=== PATIENT | female | born 1950 | race Caucasian/White ===

== ENCOUNTER 2018-01-30 11:59 | Inpatient (IN) | payer OTHER ==
--- NOTE | 2018-01-30 12:03 | ED PDOC ---
Arrival/HPI - General Time Seen by Provider: 01/30/18 12:02 Historian: EMS - Critical Care Critical Care Minutes: 30 minutes - History of Present Illness Narrative History of Present Illness (Text): 01/30/18 12:05 A 67 year old female, whose past medical history includes asthma and osteoarthritis, brought in by EMS to the emergency department at 11:58 for AMS. Received report about incoming patient to the ER at 11:40. Per EMS, patient was found at the bottom of the steps in her building by the mailman. Unwitnessed fall, unknown downtime for patient (On daughters arrival approximately 2 pm she reports that she saw her mother before work normal. >4 hours since unknown well. Upon EMS arrival, patient was intubated with ketamine. EMS reports lungs sounded decreased in air, patient was given SOLU-Medrol, Duoneb, Magnesium, and epi. Patient still unresponsive and intubated. PMD: Dr. Doug Alcantara 01/30/18 16:41 Time/Duration: Other (unknown downtime) Past Medical History - Provider Review Nursing Documentation Reviewed: Yes - Pulmonary Hx Asthma: Yes - Musculoskeletal/Rheumatological Hx Osteoarthritis: Yes - Psychiatric Hx Psychophysiologic Disorder: No Hx Substance Use: No Family/Social History - Physician Review Nursing Documentation Reviewed: Yes Family/Social History: Unknown Family HX Smoking Status: Never Smoked Hx Alcohol Use: No Hx Substance Use: No Allergies/Home Meds Allergies/Adverse Reactions: Allergies No Known Allergies Allergy (Verified 01/30/18 18:34) Review of Systems - Review of Systems Systems not reviewed;Unavailable: Intubated Physical Exam Temperature: Hypothermic Blood Pressure: Normal Respiratory Rate: Mechanically Ventilated Pain Distress: None Mental Status: Positive for: Comatose - Systems Exam Head: Present: Atraumatic, Normocephalic Pupils: Present: Non-Reactive, Pinpoint Mouth: Present: Moist Mucous Membranes Pharnyx: Present: Other (ETT tube:24 at lip) Neck: No: Meningeal Signs Respiratory/Chest: Present: Wheezes, Decreased Breath Sounds Cardiovascular: Present: Regular Rate and Rhythm Abdomen: No: Distention, Peritoneal Signs Back: Present: Normal Inspection Upper Extremity: Present: Other (no movement) Lower Extremity: Present: Other (no movement) Neurological: Present: Other (GCS:3) Skin: Present: Warm, Dry. No: Rashes Medical Decision Making ED Course and Treatment: 01/30/18 12:10 Impression: 67 year old female AMS. Intubated on arrival. Plan: -- EKG -- Arterial Blood Gas -- Chest X-ray -- Head CT -- Labs -- Duonbebs -- IV Fluids -- Blood Culture -- Urine Culture -- Urinalysis -- Reassess and disposition Progress Notes: 01/30/18 12:06 Rectal temp - hypothermic. 01/30/18 12:16 Patient's sister is at bedside, who reports on past medical history of asthma. 01/30/18 12:28 ABG consistent with Primary Respiratory Acidosis, Chronic, with: Secondary Metabolic Acidosis and Additional Non-Gap Metabolic Acidosis. Ventilator settings changed accordingly 01/30/18 12:45 EKG: Ordered, reviewed, and independently interpreted the EKG. Rate : 120 BPM Rhythm : Sinus tachycardia. Interpretation : Non-specific ST changes. Comparison : No previous EKG for comparison. 01/30/18 13:05 Hospitalist and ICU accepts patient for admission, hospitalist requests Brain MRI to be performed. 01/30/18 13:12 ICU at bedside, requesting order of steroids and prophylactic antibiotics. 01/30/2018 12:54 Chest X-ray IMPRESSION: No active pulmonary disease. Endotracheal tube terminates in mid trachea. Dictator: Supriya Cavazos MD 01/30/18 12:[address] shows no intracranial hemorrhage. 01/30/18 14:37 Patient opens eyes, with some movement in lower extremities. 01/30/18 14:40 Patient seen at bedside, and had sudden seizure activity. Given Ativan, resulting in resolution of seizure. 01/30/18 14:42 Patient more responsive. patient to MRI as requested by hospitalist. CT c- soine changed to MRI c-spine as patient already at MRI and sedated and thought easier process 01/30/18 16:03 - Lab Interpretations I have reviewed the lab results: Yes - Scribe Statement The provider has reviewed the documentation as recorded by the Dafne Montes Provider Scribe Attestation: All medical record entries made by the Scribe were at my direction and personally dictated by me. I have reviewed the chart and agree that the record accurately reflects my personal performance of the history, physical exam, medical decision making, and the department course for this patient. I have also personally directed, reviewed, and agree with the discharge instructions and disposition. Disposition/Present on Arrival - Present on Arrival Any Indicators Present on Arrival: No History of DVT/PE: No History of Uncontrolled Diabetes: No Urinary Catheter: No History Surgical Site Infection Following: None - Disposition Have Diagnosis and Disposition been Completed?: Yes Diagnosis: Respiratory failure, Acidosis Disposition: HOSPITALIZED Disposition Time: 12:05 Patient Plan: Admission Patient Problems: Current Active Problems Problem Status Onset Respiratory failure Acute Acidosis Acute Condition: CRITICAL
[2018-01-30 12:04] VITALS: BMI 28.2
[2018-01-30] MEDS ORDERED: Albuterol-Ipratrop 3 mg / 0.5 (3 ml) UD IH STA ×2 (12:06→13:12)
[2018-01-30] MEDS ORDERED: Sodium Chloride 0.9% 1,000 ML IV STA ×2 (12:06→14:45)
[2018-01-30] MEDS ORDERED: Midazolam 100 mg/100ml in NS 100 MG/100 ML SOL IV PRN (12:12)
[2018-01-30] MEDS ORDERED: Fentanyl 1000mcg/100ml NS 1,000 MCG/100 ML BAG IV PRN (12:12)
[2018-01-30] MEDS ORDERED: Albuterol-Ipratrop 3 mg / 0.5 (3 ml) UD ONE (12:13)
[2018-01-30 12:16] LABS: ARTERIAL BLOOD GAS HCO3 15.9 mmol/L (21-28); ARTERIAL BLOOD GAS O2 SAT 100.3 % (95-98); ARTERIAL BLOOD GAS PCO2 63 mm/Hg (35-45); ARTERIAL BLOOD GAS TCO2 17.8 mmol.L (22-28)
[2018-01-30 12:31] LABS: ARTERIAL BLOOD GAS PH 7.01 (7.35-7.45)
[2018-01-30 12:34] LABS: BASO # 0.06 K/mm3 (0.0-2.0); BASO % 0.6 % (0.0-3.0); EOS # 0.1 (0.0-0.7); EOS % 1.3 % (1.5-5.0); GRAN # 3.95 (1.4-6.5); GRAN % 38.7 % (50.0-68.0); HEMOGLOBIN 12.2 g/dL (12.0-16.0); LYMPH # 5.8 (1.2-3.4); LYMPH % 56.5 % (22.0-35.0); MEAN CELL VOLUME 95.7 fl (80.0-105.0); MEAN CORPUSCULAR HEMOGLOBIN 29.4 pg (25.0-35.0); MEAN CORPUSCULAR HGB CONC 30.7 g/dl (31.0-37.0); MEAN PLATELET VOLUME 9.7 fl (7.0-11.0); MONO # 0.3 (0.1-0.6); MONO % 2.9 % (1.0-6.0); RBC 4.15 10^6/uL (3.5-6.1); RED CELL DISTRIBUTION WIDTH 13.1 % (11.5-14.5); WHITE BLOOD COUNT 10.2 10^3/uL (4.5-11.0)
[2018-01-30 12:40] LABS: INR 0.95; PARTIAL THROMBOPLASTIN TIME 30.5 Seconds (25.1-36.5); PROTHROMBIN TIME 10.9 SECONDS (9.4-12.5)
[2018-01-30 12:43] LABS: ACETAMINOPHEN < 10.0 ug/ml (10.0-20.0); SALICYLATE < 1 mg/dL (2.0-20.0)
[2018-01-30 12:53] LABS: B-TYPE NATRIURETIC PEPTIDE 89.9 pg/mL (0-450); TROPONIN I 0.06 ng/mL
--- NOTE | 2018-01-30 12:58 | RAD ---
Date of service: 01/30/2018 HISTORY: Code Stroke COMPARISON: No prior. FINDINGS: The endotracheal tube terminates in the mid trachea. LUNGS: The lungs are well inflated and clear. PLEURA: No pleural effusions or pneumothorax. CARDIOVASCULAR: The heart is normal in size. No aortic atherosclerotic calcification present. OSSEOUS STRUCTURES: Within normal limits for the patient's age. VISUALIZED UPPER ABDOMEN: Normal. OTHER FINDINGS: None. IMPRESSION: No active pulmonary disease. Endotracheal tube terminates in mid trachea.
[2018-01-30 13:02] LABS: ALB/GLOB RATIO 1.3 (1.1-1.8); ALBUMIN 4.2 g/dL (3.0-4.8); CALCIUM 8.6 mg/dL (8.4-10.5)
[2018-01-30] MEDS ORDERED: Sodium Chloride 0.9% 2,000 ML IV STA (13:09)
[2018-01-30] MEDS ORDERED: MethylPREDNISolone 40 mg Vial IVP STA (13:11)
[2018-01-30] MEDS ORDERED: Vancomycin 1gm in NS 250ml 1 GM/250 ML BAG IVPB STA (13:12)
[2018-01-30] MEDS ORDERED: Piperacillin/Tazobact 3.375 gm 100 ML IVPB STA (13:12)
[2018-01-30 13:17] LABS: PH,URINE 6.5 (4.7-8.0); URINE BILIRUBIN NEGATIVE (NEGATIVE); URINE BLOOD MODERATE (NEGATIVE); URINE GLUCOSE (UA) >=1000 mg/dL (NEGATIVE); URINE LEUKOCYTE ESTERASE NEGATIVE Leu/uL (NEGATIVE); URINE PROTEIN 30 mg/dL (<30 mg/dL); URINE UROBILINOGEN 0.2 E.U./dL (<1 E.U./dL)
[2018-01-30 13:21] LABS: URINE APPEARANCE CLEAR (CLEAR); URINE COLOR YELLOW (YELLOW)
[2018-01-30 13:22] LABS: URINE BACTERIA SMALL (NEG); URINE EPITHELIAL CELLS 0 - 2 /hpf (0-5); URINE WBC 0 - 2 /hpf (0-6)
[2018-01-30 13:23] LABS: URINE HYALINE CAST 0 - 2 /hpf
[2018-01-30] MEDS: Sodium Chloride 0.9% 1,000 ML IV SCH (13:43)
[2018-01-30 13:47] LABS: BARBITURATES, UR NEGATIVE (NEGATIVE); BENZODIAZEPINES, UR NEGATIVE (NEGATIVE); OPIATES, UR NEGATIVE (NEGATIVE); PHENCYCLIDINE, UR NEGATIVE (NEGATIVE)
--- NOTE | 2018-01-30 14:18 | CP.PCM.HP ---
<Marlon Miguel - Last Filed: 01/30/18 15:08> History of Present Illness - History of Present Illness History of Present Illness: Hospitalist H&P note: 67 F with PMHx of asthma, OA, and HLD presents brought in by EMS to the ED for AMS. History is mainly taken from the sister at bedside due to patient critical status. The patient was reportedly found in the pace by the mail man in the bottom of the stairs in her building. The patient was reportedly last seen normal by the daughter in the morning before the daughter went to work. The patient was intubated in the field, had dec air sounds and to protect her airway. She was given solumedrol, Duoneb, Magnesium, and epi on the field. Tyesha ent sister denies any recent hospitalization and states that she is normally very active on a daily basis. 12 Point ROS unable to be performed 2/2 intubation. Present on Admission - Present on Admission Any Indicators Present on Admission: No Review of Systems - Review of Systems All systems: reviewed and no additional remarkable complaints except Past Patient History - Past Social History Smoking Status: Never Smoked - CARDIAC Hx Cardiac Disorders: Yes Hx Hypercholesterolemia: Yes - PULMONARY Hx Asthma: Yes - NEUROLOGICAL Hx Neurological Disorder: No - HEENT Hx HEENT Problems: No - RENAL Hx Chronic Kidney Disease: No - ENDOCRINE/METABOLIC Hx Endocrine Disorders: No - HEMATOLOGICAL/ONCOLOGICAL Hx Blood Disorders: No - INTEGUMENTARY Hx Dermatological Problems: No - MUSCULOSKELETAL/RHEUMATOLOGICAL Hx Osteoarthritis: Yes - GASTROINTESTINAL Hx Gastrointestinal Disorders: No - GENITOURINARY/GYNECOLOGICAL Hx Genitourinary Disorders: No - PSYCHIATRIC Hx Psychophysiologic Disorder: No Hx Substance Use: No - SURGICAL HISTORY Hx Surgeries: No - ANESTHESIA Hx Anesthesia: No Meds Allergies/Adverse Reactions: Allergies Allergy/AdvReac Type Severity Reaction Status Date / Time No Known Allergies Allergy Verified 01/30/18 18:34 Physical Exam - Constitutional Appears: No Acute Distress - Head Exam Head Exam: ATRAUMATIC, NORMOCEPHALIC - Eye Exam Eye Exam: PERRL (Pupils reactive but slugish) Pupil Exam: NORMAL ACCOMODATION - ENT Exam ENT Exam: Mucous Membranes Moist - Respiratory Exam Respiratory Exam: absent: Rales, Wheezes - Cardiovascular Exam Cardiovascular Exam: Tachycardia, +S1, +S2 - GI/Abdominal Exam GI & Abdominal Exam: Normal Bowel Sounds, Soft. absent: Distended - Extremities Exam Extremities exam: Negative for: calf tenderness, pedal edema - Skin Skin Exam: Dry, Intact Results - Vital Signs Recent Vital Signs: Last Vital Signs Temp 95.6 F L 01/30/18 12:26 Pulse 125 H 01/30/18 12:26 Resp 18 01/30/18 12:26 BP 108/73 01/30/18 12:26 Pulse Ox 100 01/30/18 12:26 - Labs Result Diagrams: 01/30/18 12:10 01/30/18 12:10 Labs: Laboratory Results - last 24 hr 01/30/18 01/30/18 01/30/18 12:10 12:10 12:10 WBC 10.2 RBC 4.15 Hgb 12.2 Hct 39.7 MCV 95.7 MCH 29.4 MCHC 30.7 L RDW 13.1 Plt Count 357 MPV 9.7 Gran % 38.7 L Lymph % (Auto) 56.5 H [place] % (Auto) 2.9 Eos % (Auto) 1.3 L Baso % (Auto) 0.6 Gran # 3.95 Lymph # (Auto) 5.8 H [place] # (Auto) 0.3 Eos # (Auto) 0.1 Baso # (Auto) 0.06 PT 10.9 INR 0.95 APTT 30.5 pCO2 pO2 HCO3 ABG pH ABG Total CO2 ABG O2 Saturation ABG Base Excess ABG Potassium Sodium 138 Chloride 102 Glucose Lactate FiO2 Potassium 4.1 Carbon Dioxide 18 L Anion Gap 22 H BUN 17 Creatinine 1.1 Est GFR ( Amer) 60 Est GFR (Non-Af Amer) 50 Random Glucose 372 H* Calcium 8.6 Phosphorus 10.3 H Magnesium 4.2 H Total Bilirubin 0.3 AST 33 ALT 21 Alkaline Phosphatase 63 Total Creatine Kinase 80 Troponin I 0.06 NT-Pro-B Natriuret Pep 89.9 Total Protein 7.4 Albumin 4.2 Globulin 3.2 Albumin/Globulin Ratio 1.3 Triglycerides 122 Cholesterol 248 H LDL Cholesterol Direct 132 H HDL Cholesterol 66 H Arterial Blood Potassium Urine Color Urine Appearance Urine pH Ur Specific [place] Urine Protein Urine Glucose (UA) Urine Ketones Urine Blood Urine Nitrate Urine Bilirubin Urine Urobilinogen Ur Leukocyte Esterase Urine RBC Urine WBC Ur Epithelial Cells Urine Bacteria Hyaline Casts Salicylates Urine Opiates Screen Urine Methadone Screen Acetaminophen Ur Barbiturates Screen Ur Phencyclidine Scrn Ur Amphetamines Screen U Benzodiazepines Scrn U Oth Cocaine Metabols U Cannabinoids Screen Alcohol, Quantitative Blood Type Antibody Screen BBK History Checked 01/30/18 01/30/18 01/30/18 12:10 12:10 12:10 WBC RBC Hgb Hct MCV MCH MCHC RDW Plt Count MPV Gran % Lymph % (Auto) [place] % (Auto) Eos % (Auto) Baso % (Auto) Gran # Lymph # (Auto) [place] # (Auto) Eos # (Auto) Baso # (Auto) PT INR APTT pCO2 63 H pO2 551.0 H HCO3 15.9 L ABG pH 7.01 L* ABG Total CO2 17.8 L ABG O2 Saturation 100.3 H ABG Base Excess -15.8 L ABG Potassium 3.4 L Sodium 135.0 Chloride 103.0 Glucose 375 H Lactate 7.9 H* FiO2 100.0 Potassium Carbon Dioxide Anion Gap BUN Creatinine Est GFR ( Amer) Est GFR (Non-Af Amer) Random Glucose Calcium Phosphorus Magnesium Total Bilirubin AST ALT Alkaline Phosphatase Total Creatine Kinase Troponin I NT-Pro-B Natriuret Pep Total Protein Albumin Globulin Albumin/Globulin Ratio Triglycerides Cholesterol LDL Cholesterol Direct HDL Cholesterol Arterial Blood Potassium 3.4 L Urine Color Urine Appearance Urine pH Ur Specific [place] Urine Protein Urine Glucose (UA) Urine Ketones Urine Blood Urine Nitrate Urine Bilirubin Urine Urobilinogen Ur Leukocyte Esterase Urine RBC Urine WBC Ur Epithelial Cells Urine Bacteria Hyaline Casts Salicylates < 1 L Urine Opiates Screen Urine Methadone Screen Acetaminophen < 10.0 L Ur Barbiturates Screen Ur Phencyclidine Scrn Ur Amphetamines Screen U Benzodiazepines Scrn U Oth Cocaine Metabols U Cannabinoids Screen Alcohol, Quantitative < 10 Blood Type Antibody Screen BBK History Checked 01/30/18 01/30/18 01/30/18 12:40 13:00 13:00 WBC RBC Hgb Hct MCV MCH MCHC RDW Plt Count MPV Gran % Lymph % (Auto) [place] % (Auto) Eos % (Auto) Baso % (Auto) Gran # Lymph # (Auto) [place] # (Auto) Eos # (Auto) Baso # (Auto) PT INR APTT pCO2 pO2 HCO3 ABG pH ABG Total CO2 ABG O2 Saturation ABG Base Excess ABG Potassium Sodium Chloride Glucose Lactate FiO2 Potassium Carbon Dioxide Anion Gap BUN Creatinine Est GFR ( Amer) Est GFR (Non-Af Amer) Random Glucose Calcium Phosphorus Magnesium Total Bilirubin AST ALT Alkaline Phosphatase Total Creatine Kinase Troponin I NT-Pro-B Natriuret Pep Total Protein Albumin Globulin Albumin/Globulin Ratio Triglycerides Cholesterol LDL Cholesterol Direct HDL Cholesterol Arterial Blood Potassium Urine Color Yellow Urine Appearance Clear Urine pH 6.5 Ur Specific [place] 1.025 Urine Protein 30 H Urine Glucose (UA) >=1000 Urine Ketones Negative Urine Blood Moderate H Urine Nitrate Negative Urine Bilirubin Negative Urine Urobilinogen 0.2 Ur Leukocyte Esterase Negative Urine RBC 5 - 10 Urine WBC 0 - 2 Ur Epithelial Cells 0 - 2 Urine Bacteria Small Hyaline Casts 0 - 2 Salicylates Urine Opiates Screen Negative Urine Methadone Screen Negative Acetaminophen Ur Barbiturates Screen Negative Ur Phencyclidine Scrn Negative Ur Amphetamines Screen Negative U Benzodiazepines Scrn Negative U Oth Cocaine Metabols Negative U Cannabinoids Screen Negative Alcohol, Quantitative Blood Type B POSITIVE Antibody Screen Negative BBK History Checked No verified bt Assessment & Plan - Assessment and Plan (Free Text) Assessment: 67 F with PMHx of asthma, OA, and HLD presents brought in by EMS to the ED for AMS. Patient with respiratory failure - intubated - found to have elevated lactate and acidotic. AMS: - Intubated and admitted to the ICU - Elevated lactate 7.9 and acidotic to 7 - CT head done pending official read - MRI of the head ordered - Currently on Fentanyl and Versed - NS bolus x 2 given in the ED, another ordered - Broad spectrum abx with Vanc & Zosyn started - F/u Neuro consult recs - F/u ID consult recs - CXR showed no active dx - Cont Solumedrol 40 Q8 - Duonebs as needed - Septic work up sent - Daily labs Case and plan was reviewed and discussed with Dr Schwab <Josafat Schwab - Last Filed: 01/30/18 19:50> Results - Vital Signs Recent Vital Signs: Last Vital Signs Temp 99.3 F 01/30/18 17:40 Pulse 90 01/30/18 17:48 Resp 20 01/30/18 17:40 BP 117/79 01/30/18 17:10 Pulse Ox 100 01/30/18 17:40 - Labs Result Diagrams: 01/30/18 12:10 01/30/18 12:10 Labs: Laboratory Results - last 24 hr 01/30/18 01/30/18 01/30/18 12:10 12:10 12:10 WBC 10.2 RBC 4.15 Hgb 12.2 Hct 39.7 MCV 95.7 MCH 29.4 MCHC 30.7 L RDW 13.1 Plt Count 357 MPV 9.7 Gran % 38.7 L Lymph % (Auto) 56.5 H [place] % (Auto) 2.9 Eos % (Auto) 1.3 L Baso % (Auto) 0.6 Gran # 3.95 Lymph # (Auto) 5.8 H [place] # (Auto) 0.3 Eos # (Auto) 0.1 Baso # (Auto) 0.06 PT 10.9 INR 0.95 APTT 30.5 pCO2 pO2 HCO3 ABG pH ABG Total CO2 ABG O2 Saturation ABG Base Excess ABG Potassium VBG pH VBG pCO2 VBG HCO3 VBG Total CO2 VBG O2 Sat (Calc) VBG Base Excess VBG Potassium Sodium 138 Chloride 102 Glucose Lactate FiO2 Potassium 4.1 Carbon Dioxide 18 L Anion Gap 22 H BUN 17 Creatinine 1.1 Est GFR ( Amer) 60 Est GFR (Non-Af Amer) 50 Random Glucose 372 H* Hemoglobin A1c Calcium 8.6 Phosphorus 10.3 H Magnesium 4.2 H Total Bilirubin 0.3 AST 33 ALT 21 Alkaline Phosphatase 63 Total Creatine Kinase 80 Troponin I 0.06 NT-Pro-B Natriuret Pep 89.9 Total Protein 7.4 Albumin 4.2 Globulin 3.2 Albumin/Globulin Ratio 1.3 Triglycerides 122 Cholesterol 248 H LDL Cholesterol Direct 132 H HDL Cholesterol 66 H TSH 3rd Generation Arterial Blood Potassium Venous Blood Potassium Urine Color Urine Appearance Urine pH Ur Specific [place] Urine Protein Urine Glucose (UA) Urine Ketones Urine Blood Urine Nitrate Urine Bilirubin Urine Urobilinogen Ur Leukocyte Esterase Urine RBC Urine WBC Ur Epithelial Cells Urine Bacteria Hyaline Casts Salicylates Urine Opiates Screen Urine Methadone Screen Acetaminophen Ur Barbiturates Screen Ur Phencyclidine Scrn Ur Amphetamines Screen U Benzodiazepines Scrn U Oth Cocaine Metabols U Cannabinoids Screen Alcohol, Quantitative Blood Type Blood Type Confirm Antibody Screen BBK History Checked 01/30/18 01/30/18 01/30/18 12:10 12:10 12:10 WBC RBC Hgb Hct MCV MCH MCHC RDW Plt Count MPV Gran % Lymph % (Auto) [place] % (Auto) Eos % (Auto) Baso % (Auto) Gran # Lymph # (Auto) [place] # (Auto) Eos # (Auto) Baso # (Auto) PT INR APTT pCO2 63 H pO2 551.0 H HCO3 15.9 L ABG pH 7.01 L* ABG Total CO2 17.8 L ABG O2 Saturation 100.3 H ABG Base Excess -15.8 L ABG Potassium 3.4 L VBG pH VBG pCO2 VBG HCO3 VBG Total CO2 VBG O2 Sat (Calc) VBG Base Excess VBG Potassium Sodium 135.0 Chloride 103.0 Glucose 375 H Lactate 7.9 H* FiO2 100.0 Potassium Carbon Dioxide Anion Gap BUN Creatinine Est GFR ( Amer) Est GFR (Non-Af Amer) Random Glucose Hemoglobin A1c 5.8 Calcium Phosphorus Magnesium Total Bilirubin AST ALT Alkaline Phosphatase Total Creatine Kinase Troponin I NT-Pro-B Natriuret Pep Total Protein Albumin Globulin Albumin/Globulin Ratio Triglycerides Cholesterol LDL Cholesterol Direct HDL Cholesterol TSH 3rd Generation Arterial Blood Potassium 3.4 L Venous Blood Potassium Urine Color Urine Appearance Urine pH Ur Specific [place] Urine Protein Urine Glucose (UA) Urine Ketones Urine Blood Urine Nitrate Urine Bilirubin Urine Urobilinogen Ur Leukocyte Esterase Urine RBC Urine WBC Ur Epithelial Cells Urine Bacteria Hyaline Casts Salicylates < 1 L Urine Opiates Screen Urine Methadone Screen Acetaminophen < 10.0 L Ur Barbiturates Screen Ur Phencyclidine Scrn Ur Amphetamines Screen U Benzodiazepines Scrn U Oth Cocaine Metabols U Cannabinoids Screen Alcohol, Quantitative Blood Type Blood Type Confirm Antibody Screen BBK History Checked 01/30/18 01/30/18 01/30/18 12:10 12:10 12:40 WBC RBC Hgb Hct MCV MCH MCHC RDW Plt Count MPV Gran % Lymph % (Auto) [place] % (Auto) Eos % (Auto) Baso % (Auto) Gran # Lymph # (Auto) [place] # (Auto) Eos # (Auto) Baso # (Auto) PT INR APTT pCO2 pO2 HCO3 ABG pH ABG Total CO2 ABG O2 Saturation ABG Base Excess ABG Potassium VBG pH VBG pCO2 VBG HCO3 VBG Total CO2 VBG O2 Sat (Calc) VBG Base Excess VBG Potassium Sodium Chloride Glucose Lactate FiO2 Potassium Carbon Dioxide Anion Gap BUN Creatinine Est GFR ( Amer) Est GFR (Non-Af Amer) Random Glucose Hemoglobin A1c Calcium Phosphorus Magnesium Total Bilirubin AST ALT Alkaline Phosphatase Total Creatine Kinase Troponin I NT-Pro-B Natriuret Pep Total Protein Albumin Globulin Albumin/Globulin Ratio Triglycerides Cholesterol LDL Cholesterol Direct HDL Cholesterol TSH 3rd Generation Arterial Blood Potassium Venous Blood Potassium Urine Color Urine Appearance Urine pH Ur Specific [place] Urine Protein Urine Glucose (UA) Urine Ketones Urine Blood Urine Nitrate Urine Bilirubin Urine Urobilinogen Ur Leukocyte Esterase Urine RBC Urine WBC Ur Epithelial Cells Urine Bacteria Hyaline Casts Salicylates Urine Opiates Screen Urine Methadone Screen Acetaminophen Ur Barbiturates Screen Ur Phencyclidine Scrn Ur Amphetamines Screen U Benzodiazepines Scrn U Oth Cocaine Metabols U Cannabinoids Screen Alcohol, Quantitative < 10 Blood Type B POSITIVE Blood Type Confirm B POSITIVE Antibody Screen Negative BBK History Checked No verified bt 01/30/18 01/30/18 01/30/18 13:00 13:00 15:30 WBC RBC Hgb Hct MCV MCH MCHC RDW Plt Count MPV Gran % Lymph % (Auto) [place] % (Auto) Eos % (Auto) Baso % (Auto) Gran # Lymph # (Auto) [place] # (Auto) Eos # (Auto) Baso # (Auto) PT INR APTT pCO2 pO2 HCO3 ABG pH ABG Total CO2 ABG O2 Saturation ABG Base Excess ABG Potassium VBG pH VBG pCO2 VBG HCO3 VBG Total CO2 VBG O2 Sat (Calc) VBG Base Excess VBG Potassium Sodium Chloride Glucose Lactate FiO2 Potassium Carbon Dioxide Anion Gap BUN Creatinine Est GFR ( Amer) Est GFR (Non-Af Amer) Random Glucose Hemoglobin A1c Calcium Phosphorus Magnesium Total Bilirubin AST ALT Alkaline Phosphatase Total Creatine Kinase Troponin I NT-Pro-B Natriuret Pep Total Protein Albumin Globulin Albumin/Globulin Ratio Triglycerides Cholesterol LDL Cholesterol Direct HDL Cholesterol TSH 3rd Generation 3.34 Arterial Blood Potassium Venous Blood Potassium Urine Color Yellow Urine Appearance Clear Urine pH 6.5 Ur Specific [place] 1.025 Urine Protein 30 H Urine Glucose (UA) >=1000 Urine Ketones Negative Urine Blood Moderate H Urine Nitrate Negative Urine Bilirubin Negative Urine Urobilinogen 0.2 Ur Leukocyte Esterase Negative Urine RBC 5 - 10 Urine WBC 0 - 2 Ur Epithelial Cells 0 - 2 Urine Bacteria Small Hyaline Casts 0 - 2 Salicylates Urine Opiates Screen Negative Urine Methadone Screen Negative Acetaminophen Ur Barbiturates Screen Negative Ur Phencyclidine Scrn Negative Ur Amphetamines Screen Negative U Benzodiazepines Scrn Negative U Oth Cocaine Metabols Negative U Cannabinoids Screen Negative Alcohol, Quantitative Blood Type Blood Type Confirm Antibody Screen BBK History Checked 01/30/18 01/30/18 15:30 15:36 WBC RBC Hgb Hct MCV MCH MCHC RDW Plt Count MPV Gran % Lymph % (Auto) [place] % (Auto) Eos % (Auto) Baso % (Auto) Gran # Lymph # (Auto) [place] # (Auto) Eos # (Auto) Baso # (Auto) PT INR APTT pCO2 pO2 98 H HCO3 ABG pH ABG Total CO2 ABG O2 Saturation ABG Base Excess ABG Potassium VBG pH 7.31 L VBG pCO2 42.0 VBG HCO3 21.1 VBG Total CO2 22.4 VBG O2 Sat (Calc) 99.0 H VBG Base Excess -5.0 L VBG Potassium 3.8 Sodium 139.0 Chloride 105.0 Glucose 238 H Lactate 3.0 H FiO2 21.0 Potassium Carbon Dioxide Anion Gap BUN Creatinine Est GFR ( Amer) Est GFR (Non-Af Amer) Random Glucose Hemoglobin A1c Calcium Phosphorus Magnesium Total Bilirubin AST ALT Alkaline Phosphatase Total Creatine Kinase Troponin I NT-Pro-B Natriuret Pep Total Protein Albumin Globulin Albumin/Globulin Ratio Triglycerides Cholesterol LDL Cholesterol Direct HDL Cholesterol TSH 3rd Generation Arterial Blood Potassium Venous Blood Potassium 3.8 Urine Color Urine Appearance Urine pH Ur Specific [place] Urine Protein Urine Glucose (UA) Urine Ketones Urine Blood Urine Nitrate Urine Bilirubin Urine Urobilinogen Ur Leukocyte Esterase Urine RBC Urine WBC Ur Epithelial Cells Urine Bacteria Hyaline Casts Salicylates Urine Opiates Screen Negative Urine Methadone Screen Negative Acetaminophen Ur Barbiturates Screen Negative Ur Phencyclidine Scrn Negative Ur Amphetamines Screen Negative U Benzodiazepines Scrn Negative U Oth Cocaine Metabols Negative U Cannabinoids Screen Negative Alcohol, Quantitative Blood Type Blood Type Confirm Antibody Screen BBK History Checked Attending/Attestation - Attestation I have personally seen and examined this patient.: Yes I have fully participated in the care of the patient.: Yes I have reviewed all pertinent clinical information: Yes Notes (Text): Acute Hypercapnic respiratory failure requiring invasive mechanical ventilation Unresponsiveness Lactic acidosis Asthma ABG consistent with acute respiratory acidosis Vent management per fiber optics technician Elevated LA could secondary to albuterol use, s/p IVF bolus trend LA Duo Neb PRN It is unclear at this point the etiology of her respiratory failure and unrepsonsiveness CT is negative Will consult neurology and get MRI brain GCS off sedation is 3T No gag reflex, pupils are sluggish Prognosis is poor at the moment Discussed with family at bedside and answered all their questions to their satisfaction
--- NOTE | 2018-01-30 14:39 | CP.PCM.CON ---
History of Present Illness - History of Present Illness History of Present Illness: MICU CONSULT NOTE HPI Patient is 67yo female with PMHx of Asthma, OA, HLD, presented to the ER after being found down by the mailman outside her house. As per ER staff, patient was found down, subsequently intubated in the field by EMS. The patient was last seen normal earlier in the morning by the daughter. Pt currently intubated, not sedated, GCS 3. Labs, imaging, chart reviewed. PMhx as above Pshx as above Meds unknown ROS cannot obtain Social (-) smoking, etoh, drug use FHx NC Review of Systems - Review of Systems Review of Systems: as per HPI Past Patient History - Past Social History Smoking Status: Never Smoked - CARDIAC Hx Cardiac Disorders: Yes Hx Hypercholesterolemia: Yes - PULMONARY Hx Asthma: Yes - NEUROLOGICAL Hx Neurological Disorder: No - HEENT Hx HEENT Problems: No - RENAL Hx Chronic Kidney Disease: No - ENDOCRINE/METABOLIC Hx Endocrine Disorders: No - HEMATOLOGICAL/ONCOLOGICAL Hx Blood Disorders: No - INTEGUMENTARY Hx Dermatological Problems: No - MUSCULOSKELETAL/RHEUMATOLOGICAL Hx Osteoarthritis: Yes - GASTROINTESTINAL Hx Gastrointestinal Disorders: No - GENITOURINARY/GYNECOLOGICAL Hx Genitourinary Disorders: No - PSYCHIATRIC Hx Psychophysiologic Disorder: No Hx Substance Use: No - SURGICAL HISTORY Hx Surgeries: No - ANESTHESIA Hx Anesthesia: No Meds Allergies/Adverse Reactions: Allergies Allergy/AdvReac Type Severity Reaction Status Date / Time No Known Allergies Allergy Verified 01/30/18 12:03 - Medications Medications: Current Medications Sodium Chloride (Sodium Chloride 0.9%) 1,000 mls @ 100 mls/hr IV .Q10H [facility] Last Admin: 01/30/18 13:43 Dose: 100 mls/hr Fentanyl Citrate (Fentanyl Citrate/Sodium Chloride 1 Mg/100 Ml) 1,000 mcg in 100 mls @ 2 mls/hr IV .Q24H PRN; Protocol PRN Reason: TITRATE PER MD ORDER Midazolam 100 mg/100ml in NS (Midazolam 100 Mg/100ml In Ns) 100 mg in 100 mls @ 1 mls/hr IV .Q24H PRN; Protocol PRN Reason: Agitation Sodium Chloride (Sodium Chloride 0.9%) 2,000 mls @ 999 mls/hr IV .Q2H1M STA Stop: 01/30/18 15:09 Last Admin: 01/30/18 13:15 Dose: 999 mls/hr Vancomycin HCl (Vancomycin 1gm) 1 gm in 250 mls @ 167 mls/hr IVPB STAT STA; Protocol Stop: 01/30/18 14:41 Last Admin: 01/30/18 14:21 Dose: 167 mls/hr Physical Exam - Constitutional Appears: Non-toxic, No Acute Distress - Head Exam Head Exam: NORMAL INSPECTION - Eye Exam Eye Exam: Normal appearance - ENT Exam ENT Exam: Mucous Membranes Dry - Respiratory Exam Respiratory Exam: Decreased Breath Sounds, Prolonged Expiratory Phase, NORMAL BR EATHING PATTERN - Cardiovascular Exam Cardiovascular Exam: REGULAR RHYTHM, +S1, +S2 - GI/Abdominal Exam GI & Abdominal Exam: Normal Bowel Sounds, Soft - Extremities Exam Extremities exam: Positive for: normal inspection - Neurological Exam Neurological exam: Altered - Skin Skin Exam: Normal Color, Warm Results - Vital Signs Recent Vital Signs: Last Vital Signs Temp 95.6 F L 01/30/18 12:26 Pulse 125 H 01/30/18 12:26 Resp 18 01/30/18 12:26 BP 108/73 01/30/18 12:26 Pulse Ox 100 01/30/18 12:26 - Labs Result Diagrams: 01/30/18 12:10 01/30/18 12:10 Labs: Laboratory Results - last 24 hr 01/30/18 01/30/18 01/30/18 12:10 12:10 12:10 WBC 10.2 RBC 4.15 Hgb 12.2 Hct 39.7 MCV 95.7 MCH 29.4 MCHC 30.7 L RDW 13.1 Plt Count 357 MPV 9.7 Gran % 38.7 L Lymph % (Auto) 56.5 H [place] % (Auto) 2.9 Eos % (Auto) 1.3 L Baso % (Auto) 0.6 Gran # 3.95 Lymph # (Auto) 5.8 H [place] # (Auto) 0.3 Eos # (Auto) 0.1 Baso # (Auto) 0.06 PT 10.9 INR 0.95 APTT 30.5 pCO2 pO2 HCO3 ABG pH ABG Total CO2 ABG O2 Saturation ABG Base Excess ABG Potassium Sodium 138 Chloride 102 Glucose Lactate FiO2 Potassium 4.1 Carbon Dioxide 18 L Anion Gap 22 H BUN 17 Creatinine 1.1 Est GFR ( Amer) 60 Est GFR (Non-Af Amer) 50 Random Glucose 372 H* Calcium 8.6 Phosphorus 10.3 H Magnesium 4.2 H Total Bilirubin 0.3 AST 33 ALT 21 Alkaline Phosphatase 63 Total Creatine Kinase 80 Troponin I 0.06 NT-Pro-B Natriuret Pep 89.9 Total Protein 7.4 Albumin 4.2 Globulin 3.2 Albumin/Globulin Ratio 1.3 Triglycerides 122 Cholesterol 248 H LDL Cholesterol Direct 132 H HDL Cholesterol 66 H Arterial Blood Potassium Urine Color Urine Appearance Urine pH Ur Specific [place] Urine Protein Urine Glucose (UA) Urine Ketones Urine Blood Urine Nitrate Urine Bilirubin Urine Urobilinogen Ur Leukocyte Esterase Urine RBC Urine WBC Ur Epithelial Cells Urine Bacteria Hyaline Casts Salicylates Urine Opiates Screen Urine Methadone Screen Acetaminophen Ur Barbiturates Screen Ur Phencyclidine Scrn Ur Amphetamines Screen U Benzodiazepines Scrn U Oth Cocaine Metabols U Cannabinoids Screen Alcohol, Quantitative Blood Type Antibody Screen BBK History Checked 01/30/18 01/30/18 01/30/18 12:10 12:10 12:10 WBC RBC Hgb Hct MCV MCH MCHC RDW Plt Count MPV Gran % Lymph % (Auto) [place] % (Auto) Eos % (Auto) Baso % (Auto) Gran # Lymph # (Auto) [place] # (Auto) Eos # (Auto) Baso # (Auto) PT INR APTT pCO2 63 H pO2 551.0 H HCO3 15.9 L ABG pH 7.01 L* ABG Total CO2 17.8 L ABG O2 Saturation 100.3 H ABG Base Excess -15.8 L ABG Potassium 3.4 L Sodium 135.0 Chloride 103.0 Glucose 375 H Lactate 7.9 H* FiO2 100.0 Potassium Carbon Dioxide Anion Gap BUN Creatinine Est GFR ( Amer) Est GFR (Non-Af Amer) Random Glucose Calcium Phosphorus Magnesium Total Bilirubin AST ALT Alkaline Phosphatase Total Creatine Kinase Troponin I NT-Pro-B Natriuret Pep Total Protein Albumin Globulin Albumin/Globulin Ratio Triglycerides Cholesterol LDL Cholesterol Direct HDL Cholesterol Arterial Blood Potassium 3.4 L Urine Color Urine Appearance Urine pH Ur Specific [place] Urine Protein Urine Glucose (UA) Urine Ketones Urine Blood Urine Nitrate Urine Bilirubin Urine Urobilinogen Ur Leukocyte Esterase Urine RBC Urine WBC Ur Epithelial Cells Urine Bacteria Hyaline Casts Salicylates < 1 L Urine Opiates Screen Urine Methadone Screen Acetaminophen < 10.0 L Ur Barbiturates Screen Ur Phencyclidine Scrn Ur Amphetamines Screen U Benzodiazepines Scrn U Oth Cocaine Metabols U Cannabinoids Screen Alcohol, Quantitative < 10 Blood Type Antibody Screen BBK History Checked 01/30/18 01/30/18 01/30/18 12:40 13:00 13:00 WBC RBC Hgb Hct MCV MCH MCHC RDW Plt Count MPV Gran % Lymph % (Auto) [place] % (Auto) Eos % (Auto) Baso % (Auto) Gran # Lymph # (Auto) [place] # (Auto) Eos # (Auto) Baso # (Auto) PT INR APTT pCO2 pO2 HCO3 ABG pH ABG Total CO2 ABG O2 Saturation ABG Base Excess ABG Potassium Sodium Chloride Glucose Lactate FiO2 Potassium Carbon Dioxide Anion Gap BUN Creatinine Est GFR ( Amer) Est GFR (Non-Af Amer) Random Glucose Calcium Phosphorus Magnesium Total Bilirubin AST ALT Alkaline Phosphatase Total Creatine Kinase Troponin I NT-Pro-B Natriuret Pep Total Protein Albumin Globulin Albumin/Globulin Ratio Triglycerides Cholesterol LDL Cholesterol Direct HDL Cholesterol Arterial Blood Potassium Urine Color Yellow Urine Appearance Clear Urine pH 6.5 Ur Specific [place] 1.025 Urine Protein 30 H Urine Glucose (UA) >=1000 Urine Ketones Negative Urine Blood Moderate H Urine Nitrate Negative Urine Bilirubin Negative Urine Urobilinogen 0.2 Ur Leukocyte Esterase Negative Urine RBC 5 - 10 Urine WBC 0 - 2 Ur Epithelial Cells 0 - 2 Urine Bacteria Small Hyaline Casts 0 - 2 Salicylates Urine Opiates Screen Negative Urine Methadone Screen Negative Acetaminophen Ur Barbiturates Screen Negative Ur Phencyclidine Scrn Negative Ur Amphetamines Screen Negative U Benzodiazepines Scrn Negative U Oth Cocaine Metabols Negative U Cannabinoids Screen Negative Alcohol, Quantitative Blood Type B POSITIVE Antibody Screen Negative BBK History Checked No verified bt - Imaging and Cardiology Chest x-ray Status: Image reviewed by me, Report reviewed by me Assessment & Plan - Assessment and Plan (Free Text) Assessment: 67yo female a/w respiratory failure, AMS, lactic acidosis, metabolic Acidosis AMS Resp failure Lactic Acidosis Metabolic Acidosis Asthma exacerbation - currently hypothermic, on bear hugger, T 95, altered, GCS 3, CT head negative as per ER - labs, imaging, chart reviewed Recommend: - cont with vent support, low tidal vol ventilation, titrate FiO2 down, repeat ABg with lactate - Solumedrol 40mg IV TID - Duonebs q4hr - broad spectrum abx, Vanco, ZOsyn - panculture, UCx, BCx, Procal, ID eval - MRI brain - VEEG - neuro eval - FS control - IVF, would bolus 4L total, and start on NS 125cc/hr - repeat CMP - GI ppx - DVT ppx - Admit to MICU Critical care condition Critical care time 35 minutes
[2018-01-30] MEDS ORDERED: levETIRAcetam 1000mg/100ml NS 100 ML IV ONE (15:04)
[2018-01-30 15:40] LABS: VENOUS BLOOD GAS PO2 98 mm/Hg (30-55); VENOUS BLOOD PH 7.31 (7.32-7.43)
[2018-01-30 16:29] LABS: BARBITURATES, UR NEGATIVE (NEGATIVE); BENZODIAZEPINES, UR NEGATIVE (NEGATIVE); OPIATES, UR NEGATIVE (NEGATIVE); PHENCYCLIDINE, UR NEGATIVE (NEGATIVE)
--- NOTE | 2018-01-30 17:32 | CT ---
Date of service: 01/30/2018 PROCEDURE: CT Cervical Spine without contrast HISTORY: trauma COMPARISON: None available. TECHNIQUE: Axial computed tomography images were obtained of the cervical spine without the use of intravenous contrast. Coronal and sagittal reformatted images were created and reviewed. Radiation dose: Total exam DLP = 544.09 mGy-cm. This CT exam was performed using one or more of the following dose reduction techniques: Automated exposure control, adjustment of the mA and/or kV according to patient size, and/or use of iterative reconstruction technique. FINDINGS: VERTEBRAE: No fracture. Normal alignment. No destructive bony lesion. DISCS/SPINAL CANAL/NEURAL FORAMINA: No significant central canal or neural foraminal stenosis. Discs heights are grossly preserved. PARASPINAL SOFT TISSUES: Status post intubation. Cannot evaluate prevertebral soft tissue. OTHER FINDINGS: None. IMPRESSION: No CT evidence of acute displaced fracture or subluxation.
--- NOTE | 2018-01-30 20:28 | CARD ---
APPROVED REPORT Date of service: 01/30/2018 EKG Measurement Heart [id number] <Conclusion> Sinus tachycardia Nonspecific ST and T wave abnormality Abnormal ECG
[2018-01-30] MEDS ORDERED: Vancomycin 1gm in NS 250ml 1 GM/250 ML BAG IVPB SCH (21:00)
[2018-01-30] MEDS ORDERED: Influenza Vaccine 60 mcg/0.5 mL SYR (4YR UP) IM ONE (22:14)
[2018-01-30] MEDS ORDERED: Pneumococcal 23-Valent Vaccine IM ONE (22:14)
[2018-01-30] MEDS: Piperacillin/Tazobact 3.375 gm 100 ML IVPB SCH (22:50)
[2018-01-31] MEDS: Piperacillin/Tazobact 3.375 gm 100 ML IVPB SCH ×3 (05:27→23:00)
[2018-01-31] MEDS: Heparin25000 units/250ml 1/2NS 25,000 UNITS/250 ML BAG IV SCH (05:28)
[2018-01-31 06:54] LABS: GRAN # 11.64 (1.4-6.5); GRAN % 84.3 % (50.0-68.0); HEMOGLOBIN 11.6 g/dL (12.0-16.0); LYMPH # 1.3 (1.2-3.4); LYMPH % 9.4 % (22.0-35.0); MEAN CELL VOLUME 90.8 fl (80.0-105.0); MEAN PLATELET VOLUME 9.8 fl (7.0-11.0); MONO # 0.9 (0.1-0.6); MONO % 6.3 % (1.0-6.0); RED CELL DISTRIBUTION WIDTH 13.3 % (11.5-14.5); WHITE BLOOD COUNT 13.8 10^3/uL (4.5-11.0)
[2018-01-31 07:04] LABS: ALB/GLOB RATIO 1.2 (1.1-1.8); ALBUMIN 3.8 g/dL (3.0-4.8); ALT/SGPT 26 U/L (7-56); AST/SGOT 44 U/L (14-36); BLOOD UREA NITROGEN 15 mg/dL (7-21); GFR NON-AFRICAN AMERICAN > 60
[2018-01-31] MEDS: Albuterol-Ipratrop 3 mg / 0.5 (3 ml) UD IH PRN ×2 (07:04→13:16)
[2018-01-31 07:13] LABS: INR 1.03; PARTIAL THROMBOPLASTIN TIME 25.4 Seconds (25.1-36.5); PROTHROMBIN TIME 11.9 SECONDS (9.4-12.5)
--- NOTE | 2018-01-31 07:41 | CP.CCUPN ---
<Joie Fontana L - Last Filed: 01/31/18 14:02> CCU Subjective - Physician Review Subjective (Free Text): Resident Progress Note for CCU Patient examined at bedside. No acute events overnight. Patient is s/p extubation and resting comfortably in no acute distress with cervical collar removed. Offers no complaints at this time. Patent denies fever, chills, neck pain, chest pain, shortness of breath, abdominal pain, diarrhea. Critical Care Time Spent (in minutes): 35 CCU Objective - Vital Signs / Intake & Output Vital Signs (Last 4 hours): Vital Signs Temp Pulse Resp BP Pulse Ox 01/31/18 07:12 20 100 01/31/18 07:10 98.6 F 72 100 01/31/18 07:00 98.4 F 72 104/74 100 01/31/18 06:50 98.6 F 74 100 01/31/18 06:40 98.6 F 73 100 01/31/18 06:30 98.6 F 74 100 01/31/18 06:20 98.6 F 72 100 01/31/18 06:10 98.6 F 74 100 01/31/18 06:00 98.4 F 73 106/65 100 01/31/18 05:50 97.0 F L 92 H 100 01/31/18 05:40 93.6 F L 100 01/31/18 05:30 99.0 F 73 100 01/31/18 05:20 99.0 F 73 100 01/31/18 05:10 98.8 F 73 100 01/31/18 05:00 98.8 F 69 109/75 100 01/31/18 04:50 98.6 F 77 100 01/31/18 04:40 98.6 F 91 H 100 01/31/18 04:30 98.6 F 71 100 01/31/18 04:20 98.4 F 72 100 01/31/18 04:10 98.4 F 72 100 01/31/18 04:00 98.4 F 73 104/70 100 01/31/18 03:50 98.2 F 73 100 Intake and Output (Last 8hrs): Intake & Output 01/30/18 01/31/18 01/31/18 22:59 06:59 14:59 Intake Total 5 1742 Output Total 1200 600 Balance -1195 1142 Weight 154 lb 5.177 oz Intake: IV 5 1742 0.9 1200 abx 450 fentanyl 44 versed 48 Output: Urine 1200 600 Urethral (Donaldson) 1200 600 Other: Voiding Method Toilet - Physical Exam Head: Positive for: Atraumatic, Normocephalic Pupils: Positive for: PERRL Extroacular Muscles: Positive for: EOMI Mouth: Positive for: Moist Mucous Membranes Neck: Positive for: Normal Range of Motion, Trachea Midline. Negative for: Meningeal Signs, MIDLINE TENDERNESS, Paraspinal Tenderness, JVD, Lymphadenopathy Respiratory/Chest: Positive for: Clear to Auscultation, Good Air Exchange. Negative for: Respiratory Distress, Rales, Rhonchi Cardiovascular: Positive for: Regular Rate and Rhythm, Normal S1, S2, Peripheal Pulses Present. Negative for: Murmurs, Rub, Gallop Abdomen: Positive for: Normal Bowel Sounds. Negative for: Tenderness, Distention, Peritoneal Signs, Rebound Back: Positive for: Normal Inspection Upper Extremity: Positive for: Normal Inspection, NORMAL PULSES. Negative for: Cyanosis, Edema Lower Extremity: Positive for: Normal Inspection. Negative for: Edema Neurological: Positive for: GCS=15, CN II-XII Intact, Speech Normal, Motor Func Grossly Intact Skin: Positive for: Warm, Dry, Normal Color. Negative for: Rashes Psychiatric: Positive for: Alert, Oriented x 3, Normal Insight, Normal Concentration - Medications Active Medications: Active Medications Generic Name Dose Route Start Last Admin Trade Name Freq PRN Reason Stop Dose Admin Albuterol/Ipratropium 3 ml 01/30/18 14:55 01/31/18 07:04 Duoneb 3 Mg/0.5 Mg (3 Ml) Ud IH 3 ml [id number] PRN Administration Wheezing Sodium Chloride 1,000 mls @ 100 mls/hr 01/30/18 12:15 01/30/18 13:43 Sodium Chloride 0.9% IV 100 mls/hr .Q10H HERMES Administration Fentanyl Citrate 1,000 mcg in 100 mls @ 2 mls/hr 01/30/18 12:12 01/30/18 15: 27 Fentanyl Citrate/Sodium Chloride 1 Mg/100 Ml IV 20 mcg/hr .Q24H PRN 2 mls/hr TITRATE PER MD ORDER Administration Protocol 20 MCG/HR Midazolam 100 mg/100ml in NS 100 mg in 100 mls @ 1 mls/hr 01/30/18 12:12 01/30/18 17:30 Midazolam 100 Mg/100ml In Ns IV 4 mg/hr .Q24H PRN 4 mls/hr Agitation Titration Protocol 1 MG/HR Piperacillin Sod/Tazobactam Sod 100 mls @ 25 mls/hr 01/30/18 22:00 01/31/18 05:27 Zosyn 3.375 In Ns 100ml IVPB 02/06/18 22:01 25 mls/hr Q8 HERMES Administration Protocol Acetaminophen 1,000 mg in 100 mls @ 400 mls/hr 01/30/18 23:20 01/30/18 23:38 Ofirmev IVPB 02/01/18 23:21 400 mls/hr Q6H PRN Administration Temperature Heparin Sodium/Sodium Chloride 25,000 units in 250 mls @ 8.4 mls/hr 01/31/18 05:15 01/31/18 05:28 Heparin [id number] Units/250ml 1/2 Normal Saline IV 12 units/kg/hr .Q24H HERMES 8.4 mls/hr Administration Protocol 12 UNITS/KG/HR - Patient Studies Lab Studies: Lab Studies 01/31/18 01/31/18 01/31/18 Range/Units 05:20 05:20 05:20 WBC 13.8 H D (4.5-11.0) 10^3/uL RBC 4.00 (3.5-6.1) 10^6/uL Hgb 11.6 L (12.0-16.0) g/dL Hct 36.3 (36.0-48.0) % MCV 90.8 D (80.0-105.0) fl MCH 29.0 (25.0-35.0) pg MCHC 32.0 (31.0-37.0) g/dl RDW 13.3 (11.5-14.5) % Plt Count 285 (120.0-450.0) 10^3/uL MPV 9.8 (7.0-11.0) fl Gran % 84.3 H (50.0-68.0) % Lymph % (Auto) 9.4 L (22.0-35.0) % Crockett % (Auto) 6.3 H (1.0-6.0) % Eos % (Auto) 0.0 L (1.5-5.0) % Baso % (Auto) 0.0 (0.0-3.0) % Gran # 11.64 H (1.4-6.5) Lymph # (Auto) 1.3 (1.2-3.4) [place]ckett # (Auto) 0.9 H (0.1-0.6) Eos # (Auto) 0.0 (0.0-0.7) Baso # (Auto) 0.00 (0.0-2.0) K/mm3 PT 11.9 (9.4-12.5) SECONDS INR 1.03 APTT 25.4 (25.1-36.5) Seconds pCO2 (35-45) mm/Hg pO2 (80-100) mm/Hg HCO3 (21-28) mmol/L ABG pH (7.35-7.45) ABG Total CO2 (22-28) mmol.L ABG O2 Saturation (95-98) % ABG Base Excess (-2.0-3.0) mmol/L ABG Potassium (3.6-5.2) mmol/L VBG pH (7.32-7.43) VBG pCO2 (40-60) VBG HCO3 (21-28) mmol/l VBG Total CO2 (22-28) mmol.L VBG O2 Sat (Calc) (40-65) % VBG Base Excess (0.0-2.0) mmol/L VBG Potassium (3.6-5.2) mmol/L Sodium 139 (132-148) mmol/L Chloride 110 H (98-107) mmol/L Glucose (65-105) mg/dl Lactate (0.7-2.1) mmol/L FiO2 % Potassium 4.0 (3.6-5.0) mmol/L Carbon Dioxide 21 (21-33) mmol/L Anion Gap 13 (10-20) BUN 15 (7-21) mg/dL Creatinine 0.8 (0.7-1.2) mg/dl Est GFR ( Amer) > 60 Est GFR (Non-Af Amer) > 60 Random Glucose 123 H (70-110) mg/dL Hemoglobin A1c (4.2-6.5) % Calcium 8.0 L (8.4-10.5) mg/dL Phosphorus (2.5-4.5) mg/dL Magnesium (1.7-2.2) mg/dL Total Bilirubin 0.5 (0.2-1.3) mg/dL AST 44 H D (14-36) U/L ALT 26 (7-56) U/L Alkaline Phosphatase 59 (38-126) U/L Total Creatine Kinase (35-230) U/L Troponin I 1.20 H* D ng/mL NT-Pro-B Natriuret Pep (0-450) pg/mL Total Protein 6.9 (5.8-8.3) g/dL Albumin 3.8 (3.0-4.8) g/dL Globulin 3.2 gm/dL Albumin/Globulin Ratio 1.2 (1.1-1.8) Triglycerides (35-160) mg/dL Cholesterol (130-200) mg/dL LDL Cholesterol Direct (0-129) mg/dL HDL Cholesterol (29-60) mg/dL Procalcitonin (0.19-0.49) NG/ML TSH 3rd Generation (0.46-4.68) mIU/mL Arterial Blood Potassium (3.6-5.2) mmol/L Venous Blood Potassium (3.6-5.2) mmol/L Urine Color (YELLOW) Urine Appearance (CLEAR) Urine pH (4.7-8.0) Ur Specific Mercer (1.005-1.035) Urine Protein (<30 mg/dL) mg/dL Urine Glucose (UA) (NEGATIVE) mg/dL Urine Ketones (NEGATIVE) mg/dL Urine Blood (NEGATIVE) Urine Nitrate (NEGATIVE) Urine Bilirubin (NEGATIVE) Urine Urobilinogen (<1 E.U./dL) E.U./dL Ur Leukocyte Esterase (NEGATIVE) Utyet/uL Urine RBC (0-2) /hpf Urine WBC (0-6) /hpf Ur Epithelial Cells (0-5) /hpf Urine Bacteria (NEG) Hyaline Casts /hpf Salicylates (2.0-20.0) mg/dL Urine Opiates Screen (NEGATIVE) Urine Methadone Screen (NEGATIVE) Acetaminophen (10.0-20.0) ug/ml Ur Barbiturates Screen (NEGATIVE) Ur Phencyclidine Scrn (NEGATIVE) Ur Amphetamines Screen (NEGATIVE) U Benzodiazepines Scrn (NEGATIVE) U Oth Cocaine Metabols (NEGATIVE) U Cannabinoids Screen (NEGATIVE) Alcohol, Quantitative (0-10) mg/dL Ur L.pneumophila Ag (NEGATIVE) Blood Type Blood Type Confirm Antibody Screen BBK History Checked 01/31/18 01/30/18 01/30/18 Range/Units 01:00 19:20 15:36 WBC (4.5-11.0) 10^3/uL RBC (3.5-6.1) 10^6/uL Hgb (12.0-16.0) g/dL Hct (36.0-48.0) % MCV (80.0-105.0) fl MCH (25.0-35.0) pg MCHC (31.0-37.0) g/dl RDW (11.5-14.5) % Plt Count (120.0-450.0) 10^3/uL MPV (7.0-11.0) fl Gran % (50.0-68.0) % Lymph % (Auto) (22.0-35.0) % Crockett % (Auto) (1.0-6.0) % Eos % (Auto) (1.5-5.0) % Baso % (Auto) (0.0-3.0) % Gran # (1.4-6.5) Lymph # (Auto) (1.2-3.4) [place]ett # (Auto) (0.1-0.6) Eos # (Auto) (0.0-0.7) Baso # (Auto) (0.0-2.0) K/mm3 PT (9.4-12.5) SECONDS INR APTT (25.1-36.5) Seconds pCO2 (35-45) mm/Hg pO2 98 H (80-100) mm/Hg HCO3 (21-28) mmol/L ABG pH (7.35-7.45) ABG Total CO2 (22-28) mmol.L ABG O2 Saturation (95-98) % ABG Base Excess (-2.0-3.0) mmol/L ABG Potassium (3.6-5.2) mmol/L VBG pH 7.31 L (7.32-7.43) VBG pCO2 42.0 (40-60) VBG HCO3 21.1 (21-28) mmol/l VBG Total CO2 22.4 (22-28) mmol.L VBG O2 Sat (Calc) 99.0 H (40-65) % VBG Base Excess -5.0 L (0.0-2.0) mmol/L VBG Potassium 3.8 (3.6-5.2) mmol/L Sodium 139.0 (132-148) mmol/L Chloride 105.0 (98-107) mmol/L Glucose 238 H (65-105) mg/dl Lactate 3.0 H (0.7-2.1) mmol/L FiO2 21.0 % Potassium (3.6-5.0) mmol/L Carbon Dioxide (21-33) mmol/L Anion Gap (10-20) BUN (7-21) mg/dL Creatinine (0.7-1.2) mg/dl Est GFR ( Amer) Est GFR (Non-Af Amer) Random Glucose (70-110) mg/dL Hemoglobin A1c (4.2-6.5) % Calcium (8.4-10.5) mg/dL Phosphorus (2.5-4.5) mg/dL Magnesium (1.7-2.2) mg/dL Total Bilirubin (0.2-1.3) mg/dL AST (14-36) U/L ALT (7-56) U/L Alkaline Phosphatase (38-126) U/L Total Creatine Kinase (35-230) U/L Troponin I 1.76 H* D 1.39 H* D ng/mL NT-Pro-B Natriuret Pep (0-450) pg/mL Total Protein (5.8-8.3) g/dL Albumin (3.0-4.8) g/dL Globulin gm/dL Albumin/Globulin Ratio (1.1-1.8) Triglycerides (35-160) mg/dL Cholesterol (130-200) mg/dL LDL Cholesterol Direct (0-129) mg/dL HDL Cholesterol (29-60) mg/dL Procalcitonin (0.19-0.49) NG/ML TSH 3rd Generation (0.46-4.68) mIU/mL Arterial Blood Potassium (3.6-5.2) mmol/L Venous Blood Potassium 3.8 (3.6-5.2) mmol/L Urine Color (YELLOW) Urine Appearance (CLEAR) Urine pH (4.7-8.0) Ur Specific Mercer (1.005-1.035) Urine Protein (<30 mg/dL) mg/dL Urine Glucose (UA) (NEGATIVE) mg/dL Urine Ketones (NEGATIVE) mg/dL Urine Blood (NEGATIVE) Urine Nitrate (NEGATIVE) Urine Bilirubin (NEGATIVE) Urine Urobilinogen (<1 E.U./dL) E.U./dL Ur Leukocyte Esterase (NEGATIVE) Tuyet/uL Urine RBC (0-2) /hpf Urine WBC (0-6) /hpf Ur Epithelial Cells (0-5) /hpf Urine Bacteria (NEG) Hyaline Casts /hpf Salicylates (2.0-20.0) mg/dL Urine Opiates Screen (NEGATIVE) Urine Methadone Screen (NEGATIVE) Acetaminophen (10.0-20.0) ug/ml Ur Barbiturates Screen (NEGATIVE) Ur Phencyclidine Scrn (NEGATIVE) Ur Amphetamines Screen (NEGATIVE) U Benzodiazepines Scrn (NEGATIVE) U Oth Cocaine Metabols (NEGATIVE) U Cannabinoids Screen (NEGATIVE) Alcohol, Quantitative (0-10) mg/dL Ur L.pneumophila Ag (NEGATIVE) Blood Type Blood Type Confirm Antibody Screen BBK History Checked 01/30/18 01/30/18 01/30/18 Range/Units 15:30 15:30 15:30 WBC (4.5-11.0) 10^3/uL RBC (3.5-6.1) 10^6/uL Hgb (12.0-16.0) g/dL Hct (36.0-48.0) % MCV (80.0-105.0) fl MCH (25.0-35.0) pg MCHC (31.0-37.0) g/dl RDW (11.5-14.5) % Plt Count (120.0-450.0) 10^3/uL MPV (7.0-11.0) fl Gran % (50.0-68.0) % Lymph % (Auto) (22.0-35.0) % [place]ck[place] % (Auto) (1.0-6.0) % Eos % (Auto) (1.5-5.0) % Baso % (Auto) (0.0-3.0) % Gran # (1.4-6.5) Lymph # (Auto) (1.2-3.4) [place] # (Auto) (0.1-0.6) Eos # (Auto) (0.0-0.7) Baso # (Auto) (0.0-2.0) K/mm3 PT (9.4-12.5) SECONDS INR APTT (25.1-36.5) Seconds pCO2 (35-45) mm/Hg pO2 (80-100) mm/Hg HCO3 (21-28) mmol/L ABG pH (7.35-7.45) ABG Total CO2 (22-28) mmol.L ABG O2 Saturation (95-98) % ABG Base Excess (-2.0-3.0) mmol/L ABG Potassium (3.6-5.2) mmol/L VBG pH (7.32-7.43) VBG pCO2 (40-60) VBG HCO3 (21-28) mmol/l VBG Total CO2 (22-28) mmol.L VBG O2 Sat (Calc) (40-65) % VBG Base Excess (0.0-2.0) mmol/L VBG Potassium (3.6-5.2) mmol/L Sodium (132-148) mmol/L Chloride (98-107) mmol/L Glucose (65-105) mg/dl Lactate (0.7-2.1) mmol/L FiO2 % Potassium (3.6-5.0) mmol/L Carbon Dioxide (21-33) mmol/L Anion Gap (10-20) BUN (7-21) mg/dL Creatinine (0.7-1.2) mg/dl Est GFR ( Amer) Est GFR (Non-Af Amer) Random Glucose (70-110) mg/dL Hemoglobin A1c (4.2-6.5) % Calcium (8.4-10.5) mg/dL Phosphorus (2.5-4.5) mg/dL Magnesium (1.7-2.2) mg/dL Total Bilirubin (0.2-1.3) mg/dL AST (14-36) U/L ALT (7-56) U/L Alkaline Phosphatase (38-126) U/L Total Creatine Kinase (35-230) U/L Troponin I ng/mL NT-Pro-B Natriuret Pep (0-450) pg/mL Total Protein (5.8-8.3) g/dL Albumin (3.0-4.8) g/dL Globulin gm/dL Albumin/Globulin Ratio (1.1-1.8) Triglycerides (35-160) mg/dL Cholesterol (130-200) mg/dL LDL Cholesterol Direct (0-129) mg/dL HDL Cholesterol (29-60) mg/dL Procalcitonin (0.19-0.49) NG/ML TSH 3rd Generation 3.34 (0.46-4.68) mIU/mL Arterial Blood Potassium (3.6-5.2) mmol/L Venous Blood Potassium (3.6-5.2) mmol/L Urine Color (YELLOW) Urine Appearance (CLEAR) Urine pH (4.7-8.0) Ur Specific Mercer (1.005-1.035) Urine Protein (<30 mg/dL) mg/dL Urine Glucose (UA) (NEGATIVE) mg/dL Urine Ketones (NEGATIVE) mg/dL Urine Blood (NEGATIVE) Urine Nitrate (NEGATIVE) Urine Bilirubin (NEGATIVE) Urine Urobilinogen (<1 E.U./dL) E.U./dL Ur Leukocyte Esterase (NEGATIVE) Tyuet/uL Urine RBC (0-2) /hpf Urine WBC (0-6) /hpf Ur Epithelial Cells (0-5) /hpf Urine Bacteria (NEG) Hyaline Casts /hpf Salicylates (2.0-20.0) mg/dL Urine Opiates Screen Negative (NEGATIVE) Urine Methadone Screen Negative (NEGATIVE) Acetaminophen (10.0-20.0) ug/ml Ur Barbiturates Screen Negative (NEGATIVE) Ur Phencyclidine Scrn Negative (NEGATIVE) Ur Amphetamines Screen Negative (NEGATIVE) U Benzodiazepines Scrn Negative (NEGATIVE) U Oth Cocaine Metabols Negative (NEGATIVE) U Cannabinoids Screen Negative (NEGATIVE) Alcohol, Quantitative (0-10) mg/dL Ur L.pneumophila Ag Negative (NEGATIVE) Blood Type Blood Type Confirm Antibody Screen BBK History Checked 01/30/18 01/30/18 01/30/18 Range/Units 15:30 13:00 13:00 WBC (4.5-11.0) 10^3/uL RBC (3.5-6.1) 10^6/uL Hgb (12.0-16.0) g/dL Hct (36.0-48.0) % MCV (80.0-105.0) fl MCH (25.0-35.0) pg MCHC (31.0-37.0) g/dl RDW (11.5-14.5) % Plt Count (120.0-450.0) 10^3/uL MPV (7.0-11.0) fl Gran % (50.0-68.0) % Lymph % (Auto) (22.0-35.0) % [place] % (Auto) (1.0-6.0) % Eos % (Auto) (1.5-5.0) % Baso % (Auto) (0.0-3.0) % Gran # (1.4-6.5) Lymph # (Auto) (1.2-3.4) [place] # (Auto) (0.1-0.6) Eos # (Auto) (0.0-0.7) Baso # (Auto) (0.0-2.0) K/mm3 PT (9.4-12.5) SECONDS INR APTT (25.1-36.5) Seconds pCO2 (35-45) mm/Hg pO2 (80-100) mm/Hg HCO3 (21-28) mmol/L ABG pH (7.35-7.45) ABG Total CO2 (22-28) mmol.L ABG O2 Saturation (95-98) % ABG Base Excess (-2.0-3.0) mmol/L ABG Potassium (3.6-5.2) mmol/L VBG pH (7.32-7.43) VBG pCO2 (40-60) VBG HCO3 (21-28) mmol/l VBG Total CO2 (22-28) mmol.L VBG O2 Sat (Calc) (40-65) % VBG Base Excess (0.0-2.0) mmol/L VBG Potassium (3.6-5.2) mmol/L Sodium (132-148) mmol/L Chloride (98-107) mmol/L Glucose (65-105) mg/dl Lactate (0.7-2.1) mmol/L FiO2 % Potassium (3.6-5.0) mmol/L Carbon Dioxide (21-33) mmol/L Anion Gap (10-20) BUN (7-21) mg/dL Creatinine (0.7-1.2) mg/dl Est GFR ( Amer) Est GFR (Non-Af Amer) Random Glucose (70-110) mg/dL Hemoglobin A1c (4.2-6.5) % Calcium (8.4-10.5) mg/dL Phosphorus (2.5-4.5) mg/dL Magnesium (1.7-2.2) mg/dL Total Bilirubin (0.2-1.3) mg/dL AST (14-36) U/L ALT (7-56) U/L Alkaline Phosphatase (38-126) U/L Total Creatine Kinase (35-230) U/L Troponin I ng/mL NT-Pro-B Natriuret Pep (0-450) pg/mL Total Protein (5.8-8.3) g/dL Albumin (3.0-4.8) g/dL Globulin gm/dL Albumin/Globulin Ratio (1.1-1.8) Triglycerides (35-160) mg/dL Cholesterol (130-200) mg/dL LDL Cholesterol Direct (0-129) mg/dL HDL Cholesterol (29-60) mg/dL Procalcitonin < 0.05 L (0.19-0.49) NG/ML TSH 3rd Generation (0.46-4.68) mIU/mL Arterial Blood Potassium (3.6-5.2) mmol/L Venous Blood Potassium (3.6-5.2) mmol/L Urine Color Yellow (YELLOW) Urine Appearance Clear (CLEAR) Urine pH 6.5 (4.7-8.0) Ur Specific Mercer 1.025 (1.005-1.035) Urine Protein 30 H (<30 mg/dL) mg/dL Urine Glucose (UA) >=1000 (NEGATIVE) mg/dL Urine Ketones Negative (NEGATIVE) mg/dL Urine Blood Moderate H (NEGATIVE) Urine Nitrate Negative (NEGATIVE) Urine Bilirubin Negative (NEGATIVE) Urine Urobilinogen 0.2 (<1 E.U./dL) E.U./dL Ur Leukocyte Esterase Negative (NEGATIVE) Tuyet/uL Urine RBC 5 - 10 (0-2) /hpf Urine WBC 0 - 2 (0-6) /hpf Ur Epithelial Cells 0 - 2 (0-5) /hpf Urine Bacteria Small (NEG) Hyaline Casts 0 - 2 /hpf Salicylates (2.0-20.0) mg/dL Urine Opiates Screen Negative (NEGATIVE) Urine Methadone Screen Negative (NEGATIVE) Acetaminophen (10.0-20.0) ug/ml Ur Barbiturates Screen Negative (NEGATIVE) Ur Phencyclidine Scrn Negative (NEGATIVE) Ur Amphetamines Screen Negative (NEGATIVE) U Benzodiazepines Scrn Negative (NEGATIVE) U Oth Cocaine Metabols Negative (NEGATIVE) U Cannabinoids Screen Negative (NEGATIVE) Alcohol, Quantitative (0-10) mg/dL Ur L.pneumophila Ag (NEGATIVE) Blood Type Blood Type Confirm Antibody Screen BBK History Checked 01/30/18 01/30/18 01/30/18 Range/Units 12:40 12:10 12:10 WBC (4.5-11.0) 10^3/uL RBC (3.5-6.1) 10^6/uL Hgb (12.0-16.0) g/dL Hct (36.0-48.0) % MCV (80.0-105.0) fl MCH (25.0-35.0) pg MCHC (31.0-37.0) g/dl RDW (11.5-14.5) % Plt Count (120.0-450.0) 10^3/uL MPV (7.0-11.0) fl Gran % (50.0-68.0) % Lymph % (Auto) (22.0-35.0) % [place] % (Auto) (1.0-6.0) % Eos % (Auto) (1.5-5.0) % Baso % (Auto) (0.0-3.0) % Gran # (1.4-6.5) Lymph # (Auto) (1.2-3.4) [place] # (Auto) (0.1-0.6) Eos # (Auto) (0.0-0.7) Baso # (Auto) (0.0-2.0) K/mm3 PT (9.4-12.5) SECONDS INR APTT (25.1-36.5) Seconds pCO2 (35-45) mm/Hg pO2 (80-100) mm/Hg HCO3 (21-28) mmol/L ABG pH (7.35-7.45) ABG Total CO2 (22-28) mmol.L ABG O2 Saturation (95-98) % ABG Base Excess (-2.0-3.0) mmol/L ABG Potassium (3.6-5.2) mmol/L VBG pH (7.32-7.43) VBG pCO2 (40-60) VBG HCO3 (21-28) mmol/l VBG Total CO2 (22-28) mmol.L VBG O2 Sat (Calc) (40-65) % VBG Base Excess (0.0-2.0) mmol/L VBG Potassium (3.6-5.2) mmol/L Sodium (132-148) mmol/L Chloride (98-107) mmol/L Glucose (65-105) mg/dl Lactate (0.7-2.1) mmol/L FiO2 % Potassium (3.6-5.0) mmol/L Carbon Dioxide (21-33) mmol/L Anion Gap (10-20) BUN (7-21) mg/dL Creatinine (0.7-1.2) mg/dl Est GFR ( Amer) Est GFR (Non-Af Amer) Random Glucose (70-110) mg/dL Hemoglobin A1c (4.2-6.5) % Calcium (8.4-10.5) mg/dL Phosphorus (2.5-4.5) mg/dL Magnesium (1.7-2.2) mg/dL Total Bilirubin (0.2-1.3) mg/dL AST (14-36) U/L ALT (7-56) U/L Alkaline Phosphatase (38-126) U/L Total Creatine Kinase (35-230) U/L Troponin I ng/mL NT-Pro-B Natriuret Pep (0-450) pg/mL Total Protein (5.8-8.3) g/dL Albumin (3.0-4.8) g/dL Globulin gm/dL Albumin/Globulin Ratio (1.1-1.8) Triglycerides (35-160) mg/dL Cholesterol (130-200) mg/dL LDL Cholesterol Direct (0-129) mg/dL HDL Cholesterol (29-60) mg/dL Procalcitonin (0.19-0.49) NG/ML TSH 3rd Generation (0.46-4.68) mIU/mL Arterial Blood Potassium (3.6-5.2) mmol/L Venous Blood Potassium (3.6-5.2) mmol/L Urine Color (YELLOW) Urine Appearance (CLEAR) Urine pH (4.7-8.0) Ur Specific Mercer (1.005-1.035) Urine Protein (<30 mg/dL) mg/dL Urine Glucose (UA) (NEGATIVE) mg/dL Urine Ketones (NEGATIVE) mg/dL Urine Blood (NEGATIVE) Urine Nitrate (NEGATIVE) Urine Bilirubin (NEGATIVE) Urine Urobilinogen (<1 E.U./dL) E.U./dL Ur Leukocyte Esterase (NEGATIVE) [place]uy[place]/uL Urine RBC (0-2) /hpf Urine WBC (0-6) /hpf Ur Epithelial Cells (0-5) /hpf Urine Bacteria (NEG) Hyaline Casts /hpf Salicylates (2.0-20.0) mg/dL Urine Opiates Screen (NEGATIVE) Urine Methadone Screen (NEGATIVE) Acetaminophen (10.0-20.0) ug/ml Ur Barbiturates Screen (NEGATIVE) Ur Phencyclidine Scrn (NEGATIVE) Ur Amphetamines Screen (NEGATIVE) U Benzodiazepines Scrn (NEGATIVE) U Oth Cocaine Metabols (NEGATIVE) U Cannabinoids Screen (NEGATIVE) Alcohol, Quantitative < 10 (0-10) mg/dL Ur L.pneumophila Ag (NEGATIVE) Blood Type B POSITIVE Blood Type Confirm B POSITIVE Antibody Screen Negative BBK History Checked No verified bt 01/30/18 01/30/18 01/30/18 Range/Units 12:10 12:10 12:10 WBC (4.5-11.0) 10^3/uL RBC (3.5-6.1) 10^6/uL Hgb (12.0-16.0) g/dL Hct (36.0-48.0) % MCV (80.0-105.0) fl MCH (25.0-35.0) pg MCHC (31.0-37.0) g/dl RDW (11.5-14.5) % Plt Count (120.0-450.0) 10^3/uL MPV (7.0-11.0) fl Gran % (50.0-68.0) % Lymph % (Auto) (22.0-35.0) % Crockett % (Auto) (1.0-6.0) % Eos % (Auto) (1.5-5.0) % Baso % (Auto) (0.0-3.0) % Gran # (1.4-6.5) Lymph # (Auto) (1.2-3.4) [place]ckett # (Auto) (0.1-0.6) Eos # (Auto) (0.0-0.7) Baso # (Auto) (0.0-2.0) K/mm3 PT (9.4-12.5) SECONDS INR APTT (25.1-36.5) Seconds pCO2 63 H (35-45) mm/Hg pO2 551.0 H (80-100) mm/Hg HCO3 15.9 L (21-28) mmol/L ABG pH 7.01 L* (7.35-7.45) ABG Total CO2 17.8 L (22-28) mmol.L ABG O2 Saturation 100.3 H (95-98) % ABG Base Excess -15.8 L (-2.0-3.0) mmol/L ABG Potassium 3.4 L (3.6-5.2) mmol/L VBG pH (7.32-7.43) VBG pCO2 (40-60) VBG HCO3 (21-28) mmol/l VBG Total CO2 (22-28) mmol.L VBG O2 Sat (Calc) (40-65) % VBG Base Excess (0.0-2.0) mmol/L VBG Potassium (3.6-5.2) mmol/L Sodium 135.0 (132-148) mmol/L Chloride 103.0 (98-107) mmol/L Glucose 375 H (65-105) mg/dl Lactate 7.9 H* (0.7-2.1) mmol/L FiO2 100.0 % Potassium (3.6-5.0) mmol/L Carbon Dioxide (21-33) mmol/L Anion Gap (10-20) BUN (7-21) mg/dL Creatinine (0.7-1.2) mg/dl Est GFR ( Amer) Est GFR (Non-Af Amer) Random Glucose (70-110) mg/dL Hemoglobin A1c 5.8 (4.2-6.5) % Calcium (8.4-10.5) mg/dL Phosphorus (2.5-4.5) mg/dL Magnesium (1.7-2.2) mg/dL Total Bilirubin (0.2-1.3) mg/dL AST (14-36) U/L ALT (7-56) U/L Alkaline Phosphatase (38-126) U/L Total Creatine Kinase (35-230) U/L Troponin I ng/mL NT-Pro-B Natriuret Pep (0-450) pg/mL Total Protein (5.8-8.3) g/dL Albumin (3.0-4.8) g/dL Globulin gm/dL Albumin/Globulin Ratio (1.1-1.8) Triglycerides (35-160) mg/dL Cholesterol (130-200) mg/dL LDL Cholesterol Direct (0-129) mg/dL HDL Cholesterol (29-60) mg/dL Procalcitonin (0.19-0.49) NG/ML TSH 3rd Generation (0.46-4.68) mIU/mL Arterial Blood Potassium 3.4 L (3.6-5.2) mmol/L Venous Blood Potassium (3.6-5.2) mmol/L Urine Color (YELLOW) Urine Appearance (CLEAR) Urine pH (4.7-8.0) Ur Specific Mercer (1.005-1.035) Urine Protein (<30 mg/dL) mg/dL Urine Glucose (UA) (NEGATIVE) mg/dL Urine Ketones (NEGATIVE) mg/dL Urine Blood (NEGATIVE) Urine Nitrate (NEGATIVE) Urine Bilirubin (NEGATIVE) Urine Urobilinogen (<1 E.U./dL) E.U./dL Ur Leukocyte Esterase (NEGATIVE) [place]uy[place]/uL Urine RBC (0-2) /hpf Urine WBC (0-6) /hpf Ur Epithelial Cells (0-5) /hpf Urine Bacteria (NEG) Hyaline Casts /hpf Salicylates < 1 L (2.0-20.0) mg/dL Urine Opiates Screen (NEGATIVE) Urine Methadone Screen (NEGATIVE) Acetaminophen < 10.0 L (10.0-20.0) ug/ml Ur Barbiturates Screen (NEGATIVE) Ur Phencyclidine Scrn (NEGATIVE) Ur Amphetamines Screen (NEGATIVE) U Benzodiazepines Scrn (NEGATIVE) U Oth Cocaine Metabols (NEGATIVE) U Cannabinoids Screen (NEGATIVE) Alcohol, Quantitative (0-10) mg/dL Ur L.pneumophila Ag (NEGATIVE) Blood Type Blood Type Confirm Antibody Screen BBK History Checked 01/30/18 01/30/18 01/30/18 Range/Units 12:10 12:10 12:10 WBC 10.2 (4.5-11.0) 10^3/uL RBC 4.15 (3.5-6.1) 10^6/uL Hgb 12.2 (12.0-16.0) g/dL Hct 39.7 (36.0-48.0) % MCV 95.7 (80.0-105.0) fl MCH 29.4 (25.0-35.0) pg MCHC 30.7 L (31.0-37.0) g/dl RDW 13.1 (11.5-14.5) % Plt Count 357 (120.0-450.0) 10^3/uL MPV 9.7 (7.0-11.0) fl Gran % 38.7 L (50.0-68.0) % Lymph % (Auto) 56.5 H (22.0-35.0) % Crockett % (Auto) 2.9 (1.0-6.0) % Eos % (Auto) 1.3 L (1.5-5.0) % Baso % (Auto) 0.6 (0.0-3.0) % Gran # 3.95 (1.4-6.5) Lymph # (Auto) 5.8 H (1.2-3.4) [place]ett # (Auto) 0.3 (0.1-0.6) Eos # (Auto) 0.1 (0.0-0.7) Baso # (Auto) 0.06 (0.0-2.0) K/mm3 PT 10.9 (9.4-12.5) SECONDS INR 0.95 APTT 30.5 (25.1-36.5) Seconds pCO2 (35-45) mm/Hg pO2 (80-100) mm/Hg HCO3 (21-28) mmol/L ABG pH (7.35-7.45) ABG Total CO2 (22-28) mmol.L ABG O2 Saturation (95-98) % ABG Base Excess (-2.0-3.0) mmol/L ABG Potassium (3.6-5.2) mmol/L VBG pH (7.32-7.43) VBG pCO2 (40-60) VBG HCO3 (21-28) mmol/l VBG Total CO2 (22-28) mmol.L VBG O2 Sat (Calc) (40-65) % VBG Base Excess (0.0-2.0) mmol/L VBG Potassium (3.6-5.2) mmol/L Sodium 138 (132-148) mmol/L Chloride 102 (98-107) mmol/L Glucose (65-105) mg/dl Lactate (0.7-2.1) mmol/L FiO2 % Potassium 4.1 (3.6-5.0) mmol/L Carbon Dioxide 18 L (21-33) mmol/L Anion Gap 22 H (10-20) BUN 17 (7-21) mg/dL Creatinine 1.1 (0.7-1.2) mg/dl Est GFR ( Amer) 60 Est GFR (Non-Af Amer) 50 Random Glucose 372 H* (70-110) mg/dL Hemoglobin A1c (4.2-6.5) % Calcium 8.6 (8.4-10.5) mg/dL Phosphorus 10.3 H (2.5-4.5) mg/dL Magnesium 4.2 H (1.7-2.2) mg/dL Total Bilirubin 0.3 (0.2-1.3) mg/dL AST 33 (14-36) U/L ALT 21 (7-56) U/L Alkaline Phosphatase 63 (38-126) U/L Total Creatine Kinase 80 (35-230) U/L Troponin I 0.06 ng/mL NT-Pro-B Natriuret Pep 89.9 (0-450) pg/mL Total Protein 7.4 (5.8-8.3) g/dL Albumin 4.2 (3.0-4.8) g/dL Globulin 3.2 gm/dL Albumin/Globulin Ratio 1.3 (1.1-1.8) Triglycerides 122 (35-160) mg/dL Cholesterol 248 H (130-200) mg/dL LDL Cholesterol Direct 132 H (0-129) mg/dL HDL Cholesterol 66 H (29-60) mg/dL Procalcitonin (0.19-0.49) NG/ML TSH 3rd Generation (0.46-4.68) mIU/mL Arterial Blood Potassium (3.6-5.2) mmol/L Venous Blood Potassium (3.6-5.2) mmol/L Urine Color (YELLOW) Urine Appearance (CLEAR) Urine pH (4.7-8.0) Ur Specific Mercer (1.005-1.035) Urine Protein (<30 mg/dL) mg/dL Urine Glucose (UA) (NEGATIVE) mg/dL Urine Ketones (NEGATIVE) mg/dL Urine Blood (NEGATIVE) Urine Nitrate (NEGATIVE) Urine Bilirubin (NEGATIVE) Urine Urobilinogen (<1 E.U./dL) E.U./dL Ur Leukocyte Esterase (NEGATIVE) Tuyet/uL Urine RBC (0-2) /hpf Urine WBC (0-6) /hpf Ur Epithelial Cells (0-5) /hpf Urine Bacteria (NEG) Hyaline Casts /hpf Salicylates (2.0-20.0) mg/dL Urine Opiates Screen (NEGATIVE) Urine Methadone Screen (NEGATIVE) Acetaminophen (10.0-20.0) ug/ml Ur Barbiturates Screen (NEGATIVE) Ur Phencyclidine Scrn (NEGATIVE) Ur Amphetamines Screen (NEGATIVE) U Benzodiazepines Scrn (NEGATIVE) U Oth Cocaine Metabols (NEGATIVE) U Cannabinoids Screen (NEGATIVE) Alcohol, Quantitative (0-10) mg/dL Ur L.pneumophila Ag (NEGATIVE) Blood Type Blood Type Confirm Antibody Screen BBK History Checked Laboratory Results - last 24 hr 01/30/18 01/30/18 01/30/18 12:10 12:10 12:10 WBC 10.2 RBC 4.15 Hgb 12.2 Hct 39.7 MCV 95.7 MCH 29.4 MCHC 30.7 L RDW 13.1 Plt Count 357 MPV 9.7 Gran % 38.7 L Lymph % (Auto) 56.5 H Crock[place] % (Auto) 2.9 Eos % (Auto) 1.3 L Baso % (Auto) 0.6 Gran # 3.95 Lymph # (Auto) 5.8 H [place] # (Auto) 0.3 Eos # (Auto) 0.1 Baso # (Auto) 0.06 PT 10.9 INR 0.95 APTT 30.5 pCO2 pO2 HCO3 ABG pH ABG Total CO2 ABG O2 Saturation ABG Base Excess ABG Potassium VBG pH VBG pCO2 VBG HCO3 VBG Total CO2 VBG O2 Sat (Calc) VBG Base Excess VBG Potassium Sodium 138 Chloride 102 Glucose Lactate FiO2 Potassium 4.1 Carbon Dioxide 18 L Anion Gap 22 H BUN 17 Creatinine 1.1 Est GFR ( Amer) 60 Est GFR (Non-Af Amer) 50 Random Glucose 372 H* Hemoglobin A1c Calcium 8.6 Phosphorus 10.3 H Magnesium 4.2 H Total Bilirubin 0.3 AST 33 ALT 21 Alkaline Phosphatase 63 Total Creatine Kinase 80 Troponin I 0.06 NT-Pro-B Natriuret Pep 89.9 Total Protein 7.4 Albumin 4.2 Globulin 3.2 Albumin/Globulin Ratio 1.3 Triglycerides 122 Cholesterol 248 H LDL Cholesterol Direct 132 H HDL Cholesterol 66 H Procalcitonin TSH 3rd Generation Arterial Blood Potassium Venous Blood Potassium Urine Color Urine Appearance Urine pH Ur Specific Mercer Urine Protein Urine Glucose (UA) Urine Ketones Urine Blood Urine Nitrate Urine Bilirubin Urine Urobilinogen Ur Leukocyte Esterase Urine RBC Urine WBC Ur Epithelial Cells Urine Bacteria Hyaline Casts Salicylates Urine Opiates Screen Urine Methadone Screen Acetaminophen Ur Barbiturates Screen Ur Phencyclidine Scrn Ur Amphetamines Screen U Benzodiazepines Scrn U Oth Cocaine Metabols U Cannabinoids Screen Alcohol, Quantitative Ur L.pneumophila Ag Blood Type Blood Type Confirm Antibody Screen BBK History Checked 01/30/18 01/30/18 01/30/18 12:10 12:10 12:10 WBC RBC Hgb Hct MCV MCH MCHC RDW Plt Count MPV Gran % Lymph % (Auto) [place]ck[place] % (Auto) Eos % (Auto) Baso % (Auto) Gran # Lymph # (Auto) [place] # (Auto) Eos # (Auto) Baso # (Auto) PT INR APTT pCO2 63 H pO2 551.0 H HCO3 15.9 L ABG pH 7.01 L* ABG Total CO2 17.8 L ABG O2 Saturation 100.3 H ABG Base Excess -15.8 L ABG Potassium 3.4 L VBG pH VBG pCO2 VBG HCO3 VBG Total CO2 VBG O2 Sat (Calc) VBG Base Excess VBG Potassium Sodium 135.0 Chloride 103.0 Glucose 375 H Lactate 7.9 H* FiO2 100.0 Potassium Carbon Dioxide Anion Gap BUN Creatinine Est GFR ( Amer) Est GFR (Non-Af Amer) Random Glucose Hemoglobin A1c 5.8 Calcium Phosphorus Magnesium Total Bilirubin AST ALT Alkaline Phosphatase Total Creatine Kinase Troponin I NT-Pro-B Natriuret Pep Total Protein Albumin Globulin Albumin/Globulin Ratio Triglycerides Cholesterol LDL Cholesterol Direct HDL Cholesterol Procalcitonin TSH 3rd Generation Arterial Blood Potassium 3.4 L Venous Blood Potassium Urine Color Urine Appearance Urine pH Ur Specific [place] Urine Protein Urine Glucose (UA) Urine Ketones Urine Blood Urine Nitrate Urine Bilirubin Urine Urobilinogen Ur Leukocyte Esterase Urine RBC Urine WBC Ur Epithelial Cells Urine Bacteria Hyaline Casts Salicylates < 1 L Urine Opiates Screen Urine Methadone Screen Acetaminophen < 10.0 L Ur Barbiturates Screen Ur Phencyclidine Scrn Ur Amphetamines Screen U Benzodiazepines Scrn U Oth Cocaine Metabols U Cannabinoids Screen Alcohol, Quantitative Ur L.pneumophila Ag Blood Type Blood Type Confirm Antibody Screen BBK History Checked 01/30/18 01/30/18 01/30/18 12:10 12:10 12:40 WBC RBC Hgb Hct MCV MCH MCHC RDW Plt Count MPV Gran % Lymph % (Auto) [place] % (Auto) Eos % (Auto) Baso % (Auto) Gran # Lymph # (Auto) [place] # (Auto) Eos # (Auto) Baso # (Auto) PT INR APTT pCO2 pO2 HCO3 ABG pH ABG Total CO2 ABG O2 Saturation ABG Base Excess ABG Potassium VBG pH VBG pCO2 VBG HCO3 VBG Total CO2 VBG O2 Sat (Calc) VBG Base Excess VBG Potassium Sodium Chloride Glucose Lactate FiO2 Potassium Carbon Dioxide Anion Gap BUN Creatinine Est GFR ( Amer) Est GFR (Non-Af Amer) Random Glucose Hemoglobin A1c Calcium Phosphorus Magnesium Total Bilirubin AST ALT Alkaline Phosphatase Total Creatine Kinase Troponin I NT-Pro-B Natriuret Pep Total Protein Albumin Globulin Albumin/Globulin Ratio Triglycerides Cholesterol LDL Cholesterol Direct HDL Cholesterol Procalcitonin TSH 3rd Generation Arterial Blood Potassium Venous Blood Potassium Urine Color Urine Appearance Urine pH Ur Specific [place] Urine Protein Urine Glucose (UA) Urine Ketones Urine Blood Urine Nitrate Urine Bilirubin Urine Urobilinogen Ur Leukocyte Esterase Urine RBC Urine WBC Ur Epithelial Cells Urine Bacteria Hyaline Casts Salicylates Urine Opiates Screen Urine Methadone Screen Acetaminophen Ur Barbiturates Screen Ur Phencyclidine Scrn Ur Amphetamines Screen U Benzodiazepines Scrn U Oth Cocaine Metabols U Cannabinoids Screen Alcohol, Quantitative < 10 Ur L.pneumophila Ag Blood Type B POSITIVE Blood Type Confirm B POSITIVE Antibody Screen Negative BBK History Checked No verified bt 01/30/18 01/30/18 01/30/18 13:00 13:00 15:30 WBC RBC Hgb Hct MCV MCH MCHC RDW Plt Count MPV Gran % Lymph % (Auto) [place] % (Auto) Eos % (Auto) Baso % (Auto) Gran # Lymph # (Auto) [place] # (Auto) Eos # (Auto) Baso # (Auto) PT INR APTT pCO2 pO2 HCO3 ABG pH ABG Total CO2 ABG O2 Saturation ABG Base Excess ABG Potassium VBG pH VBG pCO2 VBG HCO3 VBG Total CO2 VBG O2 Sat (Calc) VBG Base Excess VBG Potassium Sodium Chloride Glucose Lactate FiO2 Potassium Carbon Dioxide Anion Gap BUN Creatinine Est GFR ( Amer) Est GFR (Non-Af Amer) Random Glucose Hemoglobin A1c Calcium Phosphorus Magnesium Total Bilirubin AST ALT Alkaline Phosphatase Total Creatine Kinase Troponin I NT-Pro-B Natriuret Pep Total Protein Albumin Globulin Albumin/Globulin Ratio Triglycerides Cholesterol LDL Cholesterol Direct HDL Cholesterol Procalcitonin < 0.05 L TSH 3rd Generation Arterial Blood Potassium Venous Blood Potassium Urine Color Yellow Urine Appearance Clear Urine pH 6.5 Ur Specific [place] 1.025 Urine Protein 30 H Urine Glucose (UA) >=1000 Urine Ketones Negative Urine Blood Moderate H Urine Nitrate Negative Urine Bilirubin Negative Urine Urobilinogen 0.2 Ur Leukocyte Esterase Negative Urine RBC 5 - 10 Urine WBC 0 - 2 Ur Epithelial Cells 0 - 2 Urine Bacteria Small Hyaline Casts 0 - 2 Salicylates Urine Opiates Screen Negative Urine Methadone Screen Negative Acetaminophen Ur Barbiturates Screen Negative Ur Phencyclidine Scrn Negative Ur Amphetamines Screen Negative U Benzodiazepines Scrn Negative U Oth Cocaine Metabols Negative U Cannabinoids Screen Negative Alcohol, Quantitative Ur L.pneumophila Ag Blood Type Blood Type Confirm Antibody Screen BBK History Checked 01/30/18 01/30/18 01/30/18 15:30 15:30 15:30 WBC RBC Hgb Hct MCV MCH MCHC RDW Plt Count MPV Gran % Lymph % (Auto) [place] % (Auto) Eos % (Auto) Baso % (Auto) Gran # Lymph # (Auto) [place] # (Auto) Eos # (Auto) Baso # (Auto) PT INR APTT pCO2 pO2 HCO3 ABG pH ABG Total CO2 ABG O2 Saturation ABG Base Excess ABG Potassium VBG pH VBG pCO2 VBG HCO3 VBG Total CO2 VBG O2 Sat (Calc) VBG Base Excess VBG Potassium Sodium Chloride Glucose Lactate FiO2 Potassium Carbon Dioxide Anion Gap BUN Creatinine Est GFR ( Amer) Est GFR (Non-Af Amer) Random Glucose Hemoglobin A1c Calcium Phosphorus Magnesium Total Bilirubin AST ALT Alkaline Phosphatase Total Creatine Kinase Troponin I NT-Pro-B Natriuret Pep Total Protein Albumin Globulin Albumin/Globulin Ratio Triglycerides Cholesterol LDL Cholesterol Direct HDL Cholesterol Procalcitonin TSH 3rd Generation 3.34 Arterial Blood Potassium Venous Blood Potassium Urine Color Urine Appearance Urine pH Ur Specific [place] Urine Protein Urine Glucose (UA) Urine Ketones Urine Blood Urine Nitrate Urine Bilirubin Urine Urobilinogen Ur Leukocyte Esterase Urine RBC Urine WBC Ur Epithelial Cells Urine Bacteria Hyaline Casts Salicylates Urine Opiates Screen Negative Urine Methadone Screen Negative Acetaminophen Ur Barbiturates Screen Negative Ur Phencyclidine Scrn Negative Ur Amphetamines Screen Negative U Benzodiazepines Scrn Negative U Oth Cocaine Metabols Negative U Cannabinoids Screen Negative Alcohol, Quantitative Ur L.pneumophila Ag Negative Blood Type Blood Type Confirm Antibody Screen BBK History Checked 01/30/18 01/30/18 01/31/18 15:36 19:20 01:00 WBC RBC Hgb Hct MCV MCH MCHC RDW Plt Count MPV Gran % Lymph % (Auto) [place] % (Auto) Eos % (Auto) Baso % (Auto) Gran # Lymph # (Auto) [place] # (Auto) Eos # (Auto) Baso # (Auto) PT INR APTT pCO2 pO2 98 H HCO3 ABG pH ABG Total CO2 ABG O2 Saturation ABG Base Excess ABG Potassium VBG pH 7.31 L VBG pCO2 42.0 VBG HCO3 21.1 VBG Total CO2 22.4 VBG O2 Sat (Calc) 99.0 H VBG Base Excess -5.0 L VBG Potassium 3.8 Sodium 139.0 Chloride 105.0 Glucose 238 H Lactate 3.0 H FiO2 21.0 Potassium Carbon Dioxide Anion Gap BUN Creatinine Est GFR ( Amer) Est GFR (Non-Af Amer) Random Glucose Hemoglobin A1c Calcium Phosphorus Magnesium Total Bilirubin AST ALT Alkaline Phosphatase Total Creatine Kinase Troponin I 1.39 H* D 1.76 H* D NT-Pro-B Natriuret Pep Total Protein Albumin Globulin Albumin/Globulin Ratio Triglycerides Cholesterol LDL Cholesterol Direct HDL Cholesterol Procalcitonin TSH 3rd Generation Arterial Blood Potassium Venous Blood Potassium 3.8 Urine Color Urine Appearance Urine pH Ur Specific [place] Urine Protein Urine Glucose (UA) Urine Ketones Urine Blood Urine Nitrate Urine Bilirubin Urine Urobilinogen Ur Leukocyte Esterase Urine RBC Urine WBC Ur Epithelial Cells Urine Bacteria Hyaline Casts Salicylates Urine Opiates Screen Urine Methadone Screen Acetaminophen Ur Barbiturates Screen Ur Phencyclidine Scrn Ur Amphetamines Screen U Benzodiazepines Scrn U Oth Cocaine Metabols U Cannabinoids Screen Alcohol, Quantitative Ur L.pneumophila Ag Blood Type Blood Type Confirm Antibody Screen BBK History Checked 01/31/18 01/31/18 01/31/18 05:20 05:20 05:20 WBC 13.8 H D RBC 4.00 Hgb 11.6 L Hct 36.3 MCV 90.8 D MCH 29.0 MCHC 32.0 RDW 13.3 Plt Count 285 MPV 9.8 Gran % 84.3 H Lymph % (Auto) 9.4 L [place] % (Auto) 6.3 H Eos % (Auto) 0.0 L Baso % (Auto) 0.0 Gran # 11.64 H Lymph # (Auto) 1.3 [place] # (Auto) 0.9 H Eos # (Auto) 0.0 Baso # (Auto) 0.00 PT 11.9 INR 1.03 APTT 25.4 pCO2 pO2 HCO3 ABG pH ABG Total CO2 ABG O2 Saturation ABG Base Excess ABG Potassium VBG pH VBG pCO2 VBG HCO3 VBG Total CO2 VBG O2 Sat (Calc) VBG Base Excess VBG Potassium Sodium 139 Chloride 110 H Glucose Lactate FiO2 Potassium 4.0 Carbon Dioxide 21 Anion Gap 13 BUN 15 Creatinine 0.8 Est GFR ( Amer) > 60 Est GFR (Non-Af Amer) > 60 Random Glucose 123 H Hemoglobin A1c Calcium 8.0 L Phosphorus Magnesium Total Bilirubin 0.5 AST 44 H D ALT 26 Alkaline Phosphatase 59 Total Creatine Kinase Troponin I 1.20 H* D NT-Pro-B Natriuret Pep Total Protein 6.9 Albumin 3.8 Globulin 3.2 Albumin/Globulin Ratio 1.2 Triglycerides Cholesterol LDL Cholesterol Direct HDL Cholesterol Procalcitonin TSH 3rd Generation Arterial Blood Potassium Venous Blood Potassium Urine Color Urine Appearance Urine pH Ur Specific [place] Urine Protein Urine Glucose (UA) Urine Ketones Urine Blood Urine Nitrate Urine Bilirubin Urine Urobilinogen Ur Leukocyte Esterase Urine RBC Urine WBC Ur Epithelial Cells Urine Bacteria Hyaline Casts Salicylates Urine Opiates Screen Urine Methadone Screen Acetaminophen Ur Barbiturates Screen Ur Phencyclidine Scrn Ur Amphetamines Screen U Benzodiazepines Scrn U Oth Cocaine Metabols U Cannabinoids Screen Alcohol, Quantitative Ur L.pneumophila Ag Blood Type Blood Type Confirm Antibody Screen BBK History Checked Radiology Impressions: Radiology Impressions Chest X-Ray 01/30/18 12:03 IMPRESSION: No active pulmonary disease. Endotracheal tube terminates in mid trachea. Cervical Spine CT 01/30/18 16:31 IMPRESSION: No CT evidence of acute displaced fracture or subluxation. EKG/Cardiology Studies: Cardiology / EKG Studies 01/30/18 12:03 ELECTROCARDIOGRAM Stat Comment: cough Reason For Exam: stretcher 01/30/18 21:34 EKG [ELECTROCARDIOGRAM] Stat Comment: Reason For Exam: increased troponin Fingerstick Blood Sugar Results: 132 Review of Systems - Review of Systems All systems: reviewed and no additional remarkable complaints except (as stated in HPI) Critical Care Progress Note - Extremities/Vascular Does the Patient have a Central Venous Catheter?: No Does the Patient have a Donaldson Catheter?: No - Prophylaxis GI Prophylaxis GI: Not Indicated - Prophylaxis DVT Prophylaxis DVT: SCDs - Nutrition Nutrition: Nutrition Category Date Time Status NPO Diet [DIET] Diets 01/30/18 Breakfast Ordered Assessment/Plan - Assessment and Plan (Free Text) Assessment: 67 year old female admitted to ICU for workup and management of respiratory failure, AMS, lactic acidosis, metabolic acidosis, now s/p extubation. Plan: Neuro - AAOx3 - CT head unremarkable - CT cervical spine shows no evidence of acute displaced fracture or subluxation - Neurology consulted. Appreciate recs. - followup brain MRI - maintain normothermia Cardio - troponins elevated x3 - heparin drip - aspirin 300 mg RC daily - Lopressor 12.5 mg PO BID - Cardiology consulted. Appreciate recs. - maintain MAP>65 mm Hg Pulm - CXR unremarkable - s/p extubation - saturating well on nasal cannula - duonebs PRN, solu-medrol 40 mg IVP daily - maintain SaO2>92% GI - NPO - pending swallow screen Renal - donaldson discontinued - NS @ 100 ccs/hr Endo - maintain euglycemia Heme - monitor and transfuse as needed - SCDs ID - afebrile, leukocytosis likely due to steroids - procal not elevated - UCx neg, BCx neg x2 - ID consulted. Appreciate recs. - vancomycin 1 gm Q12H - zosyn 3.375 gm Q8H Case discussed with attending Dr. Selvin Fontana PGY-1 - Date & Time Date: 01/31/18 Time: 07:41 <Candace Montalvo - Last Filed: 01/31/18 15:01> CCU Objective - Vital Signs / Intake & Output Vital Signs (Last 4 hours): Vital Signs Temp Pulse Resp BP Pulse Ox 01/31/18 14:00 96.3 F L 122 H 22 96/64 L 94 L 01/31/18 13:50 96.3 F L 125 H 18 90 L 01/31/18 13:45 96.3 F L 116 H 92 L 01/31/18 13:40 96.3 F L 113 H 24 95 01/31/18 13:30 96.4 F L 109 H 16 98 01/31/18 13:20 96.6 F L 109 H 14 98 01/31/18 13:10 96.6 F L 117 H 18 99 01/31/18 13:04 96.8 F L 121 H 100 01/31/18 13:00 103/67 01/31/18 12:59 96.8 F L 120 H 15 100 01/31/18 12:55 96.8 F L 115 H 13 01/31/18 12:54 96.8 F L 111 H 21 01/31/18 12:53 96.6 F L 109 H 13 01/31/18 12:52 96.6 F L 112 H 14 01/31/18 12:51 96.6 F L 113 H 20 01/31/18 12:50 96.6 F L 116 H 14 01/31/18 12:49 96.6 F L 115 H 15 01/31/18 12:48 96.6 F L 119 H 39 H 01/31/18 12:47 96.6 F L 122 H 17 01/31/18 12:46 96.6 F L 112 H 22 01/31/18 12:45 96.4 F L 110 H 21 01/31/18 12:44 96.4 F L 112 H 20 01/31/18 12:43 96.4 F L 110 H 15 01/31/18 12:42 96.3 F L 112 H 24 01/31/18 12:41 96.3 F L 111 H 24 01/31/18 12:40 96.3 F L 109 H 14 01/31/18 12:39 96.3 F L 113 H 19 01/31/18 12:38 96.3 F L 114 H 14 01/31/18 12:37 96.3 F L 77 26 H 01/31/18 12:36 96.1 F L 80 24 01/31/18 12:35 96.1 F L 83 19 01/31/18 12:34 96.1 F L 79 17 01/31/18 12:33 96.1 F L 80 17 01/31/18 12:32 96.1 F L 82 21 01/31/18 12:31 96.1 F L 79 17 01/31/18 12:30 96.1 F L 81 20 01/31/18 12:29 95.9 F L 79 24 01/31/18 12:28 95.9 F L 82 15 01/31/18 12:27 95.9 F L 79 18 01/31/18 12:26 95.9 F L 80 18 01/31/18 12:25 95.9 F L 83 19 01/31/18 12:24 95.9 F L 77 15 01/31/18 12:23 95.7 F L 78 13 01/31/18 12:22 95.7 F L 79 18 01/31/18 12:21 95.7 F L 79 15 01/31/18 12:20 95.7 F L 83 15 01/31/18 12:19 95.7 F L 85 15 01/31/18 12:18 95.7 F L 87 18 01/31/18 12:17 95.7 F L 89 20 01/31/18 12:08 99 F 01/31/18 12:05 78 99/66 L Intake and Output (Last 8hrs): Intake & Output 01/31/18 01/31/18 01/31/18 06:59 14:59 22:59 Intake Total 1802 Output Total 600 Balance 1202 Intake: IV 1802 0.9 1200 abx 450 fentanyl 44 versed 48 Output: Urine 600 Urethral (Donaldson) 600 - Medications Active Medications: Active Medications Generic Name Dose Route Start Last Admin Trade Name Freq PRN Reason Stop Dose Admin Albuterol/Ipratropium 3 ml 01/30/18 14:55 01/31/18 13:16 Duoneb 3 Mg/0.5 Mg (3 Ml) Ud IH 3 ml [id number] PRN Administration Wheezing Aspirin 81 mg 01/31/18 14:15 Ecotrin PO DAILY HERMES Clopidogrel Bisulfate 75 mg 02/01/18 07:00 Plavix PO 0700 HERMES Sodium Chloride 1,000 mls @ 100 mls/hr 01/30/18 12:15 01/30/18 13:43 Sodium Chloride 0.9% IV 100 mls/hr .Q10H HERMES Administration Piperacillin Sod/Tazobactam Sod 100 mls @ 25 mls/hr 01/30/18 22:00 01/31/18 14:03 Zosyn 3.375 In Ns 100ml IVPB 02/06/18 22:01 25 mls/hr Q8 HERMES Administration Protocol Acetaminophen 1,000 mg in 100 mls @ 400 mls/hr 01/30/18 23:20 01/30/18 23:38 Ofirmev IVPB 02/01/18 23:21 400 mls/hr Q6H PRN Administration Temperature Heparin Sodium/Sodium Chloride 25,000 units in 250 mls @ 8.4 mls/hr 01/31/18 05:15 01/31/18 05:28 Heparin 79345 Units/250ml 1/2 Normal Saline IV 02/01/18 07:00 12 units/kg/hr .Q24H HERMES 8.4 mls/hr Administration Protocol 12 UNITS/KG/HR Vancomycin HCl 1 gm in 250 mls @ 167 mls/hr 01/31/18 11:15 01/31/18 11:51 Vancomycin 1gm IVPB 167 mls/hr Q12H HERMES Administration Protocol Methylprednisolone 40 mg 01/31/18 10:30 01/31/18 11:26 Solu-Medrol IVP 40 mg DAILY HERMES Administration Metoprolol Tartrate 12.5 mg 01/31/18 10:00 01/31/18 12:05 Lopressor PO Not Given BID HERMES - Patient Studies Lab Studies: Microbiology Studies 01/30/18 12:40 Blood Culture - Preliminary Blood NO GROWTH AFTER 24 HOURS 01/30/18 13:00 Urine Culture - Final Urine No Growth (<1,000 CFU/ML) 01/30/18 12:10 Blood Culture - Preliminary Blood NO GROWTH AFTER 24 HOURS Lab Studies 01/31/18 01/31/18 01/31/18 Range/Units 12:00 09:02 05:20 WBC (4.5-11.0) 10^3/uL RBC (3.5-6.1) 10^6/uL Hgb (12.0-16.0) g/dL Hct (36.0-48.0) % MCV (80.0-105.0) fl MCH (25.0-35.0) pg MCHC (31.0-37.0) g/dl RDW (11.5-14.5) % Plt Count (120.0-450.0) 10^3/uL MPV (7.0-11.0) fl Gran % (50.0-68.0) % Lymph % (Auto) (22.0-35.0) % [place]ckett % (Auto) (1.0-6.0) % Eos % (Auto) (1.5-5.0) % Baso % (Auto) (0.0-3.0) % Gran # (1.4-6.5) Lymph # (Auto) (1.2-3.4) [place] # (Auto) (0.1-0.6) Eos # (Auto) (0.0-0.7) Baso # (Auto) (0.0-2.0) K/mm3 PT 11.9 (9.4-12.5) SECONDS INR 1.03 APTT 172.4 H* 25.4 (25.1-36.5) Seconds pCO2 38 (35-45) mm/Hg pO2 239.0 H (30-55) mm/Hg HCO3 19.6 L (21-28) mmol/L ABG pH 7.32 L (7.35-7.45) ABG Total CO2 20.8 L (22-28) mmol.L ABG O2 Saturation 100.2 H (95-98) % ABG Base Excess -6.0 L (-2.0-3.0) mmol/L ABG Potassium 3.8 (3.6-5.2) mmol/L VBG pH (7.32-7.43) VBG pCO2 (40-60) VBG HCO3 (21-28) mmol/l VBG Total CO2 (22-28) mmol.L VBG O2 Sat (Calc) (40-65) % VBG Base Excess (0.0-2.0) mmol/L VBG Potassium (3.6-5.2) mmol/L Sodium 136.0 (132-148) mmol/L Chloride 110.0 H (98-107) mmol/L Glucose 125 H (65-105) mg/dl Lactate 0.7 (0.7-2.1) mmol/L FiO2 50.0 % Pressure Support 5 CPAP 5 Potassium (3.6-5.0) mmol/L Carbon Dioxide (21-33) mmol/L Anion Gap (10-20) BUN (7-21) mg/dL Creatinine (0.7-1.2) mg/dl Est GFR ( Amer) Est GFR (Non-Af Amer) Random Glucose (70-110) mg/dL Hemoglobin A1c (4.2-6.5) % Calcium (8.4-10.5) mg/dL Total Bilirubin (0.2-1.3) mg/dL AST (14-36) U/L ALT (7-56) U/L Alkaline Phosphatase (38-126) U/L Troponin I ng/mL Total Protein (5.8-8.3) g/dL Albumin (3.0-4.8) g/dL Globulin gm/dL Albumin/Globulin Ratio (1.1-1.8) Procalcitonin (0.19-0.49) NG/ML TSH 3rd Generation (0.46-4.68) mIU/mL Arterial Blood Potassium 3.8 (3.6-5.2) mmol/L Venous Blood Potassium (3.6-5.2) mmol/L Urine Opiates Screen (NEGATIVE) Urine Methadone Screen (NEGATIVE) Ur Barbiturates Screen (NEGATIVE) Ur Phencyclidine Scrn (NEGATIVE) Ur Amphetamines Screen (NEGATIVE) U Benzodiazepines Scrn (NEGATIVE) U Oth Cocaine Metabols (NEGATIVE) U Cannabinoids Screen (NEGATIVE) Ur L.pneumophila Ag (NEGATIVE) 01/31/18 01/31/18 01/31/18 Range/Units 05:20 05:20 01:00 WBC 13.8 H D (4.5-11.0) 10^3/uL RBC 4.00 (3.5-6.1) 10^6/uL Hgb 11.6 L (12.0-16.0) g/dL Hct 36.3 (36.0-48.0) % MCV 90.8 D (80.0-105.0) fl MCH 29.0 (25.0-35.0) pg MCHC 32.0 (31.0-37.0) g/dl RDW 13.3 (11.5-14.5) % Plt Count 285 (120.0-450.0) 10^3/uL MPV 9.8 (7.0-11.0) fl Gran % 84.3 H (50.0-68.0) % Lymph % (Auto) 9.4 L (22.0-35.0) % [place] % (Auto) 6.3 H (1.0-6.0) % Eos % (Auto) 0.0 L (1.5-5.0) % Baso % (Auto) 0.0 (0.0-3.0) % Gran # 11.64 H (1.4-6.5) Lymph # (Auto) 1.3 (1.2-3.4) [place] # (Auto) 0.9 H (0.1-0.6) Eos # (Auto) 0.0 (0.0-0.7) Baso # (Auto) 0.00 (0.0-2.0) K/mm3 PT (9.4-12.5) SECONDS INR APTT (25.1-36.5) Seconds pCO2 (35-45) mm/Hg pO2 (30-55) mm/Hg HCO3 (21-28) mmol/L ABG pH (7.35-7.45) ABG Total CO2 (22-28) mmol.L ABG O2 Saturation (95-98) % ABG Base Excess (-2.0-3.0) mmol/L ABG Potassium (3.6-5.2) mmol/L VBG pH (7.32-7.43) VBG pCO2 (40-60) VBG HCO3 (21-28) mmol/l VBG Total CO2 (22-28) mmol.L VBG O2 Sat (Calc) (40-65) % VBG Base Excess (0.0-2.0) mmol/L VBG Potassium (3.6-5.2) mmol/L Sodium 139 (132-148) mmol/L Chloride 110 H (98-107) mmol/L Glucose (65-105) mg/dl Lactate (0.7-2.1) mmol/L FiO2 % Pressure Support CPAP Potassium 4.0 (3.6-5.0) mmol/L Carbon Dioxide 21 (21-33) mmol/L Anion Gap 13 (10-20) BUN 15 (7-21) mg/dL Creatinine 0.8 (0.7-1.2) mg/dl Est GFR ( Amer) > 60 Est GFR (Non-Af Amer) > 60 Random Glucose 123 H (70-110) mg/dL Hemoglobin A1c (4.2-6.5) % Calcium 8.0 L (8.4-10.5) mg/dL Total Bilirubin 0.5 (0.2-1.3) mg/dL AST 44 H D (14-36) U/L ALT 26 (7-56) U/L Alkaline Phosphatase 59 (38-126) U/L Troponin I 1.20 H* D 1.76 H* D ng/mL Total Protein 6.9 (5.8-8.3) g/dL Albumin 3.8 (3.0-4.8) g/dL Globulin 3.2 gm/dL Albumin/Globulin Ratio 1.2 (1.1-1.8) Procalcitonin (0.19-0.49) NG/ML TSH 3rd Generation (0.46-4.68) mIU/mL Arterial Blood Potassium (3.6-5.2) mmol/L Venous Blood Potassium (3.6-5.2) mmol/L Urine Opiates Screen (NEGATIVE) Urine Methadone Screen (NEGATIVE) Ur Barbiturates Screen (NEGATIVE) Ur Phencyclidine Scrn (NEGATIVE) Ur Amphetamines Screen (NEGATIVE) U Benzodiazepines Scrn (NEGATIVE) U Oth Cocaine Metabols (NEGATIVE) U Cannabinoids Screen (NEGATIVE) Ur L.pneumophila Ag (NEGATIVE) 12/12/18 12/12/18 12/12/18 Range/Units 21:00 19:20 18:39 WBC (4.5-11.0) 10^3/uL RBC (3.5-6.1) 10^6/uL Hgb (12.0-16.0) g/dL Hct (36.0-48.0) % MCV (80.0-105.0) fl MCH (25.0-35.0) pg MCHC (31.0-37.0) g/dl RDW (11.5-14.5) % Plt Count (120.0-450.0) 10^3/uL MPV (7.0-11.0) fl Gran % (50.0-68.0) % Lymph % (Auto) (22.0-35.0) % [place]ckett % (Auto) (1.0-6.0) % Eos % (Auto) (1.5-5.0) % Baso % (Auto) (0.0-3.0) % Gran # (1.4-6.5) Lymph # (Auto) (1.2-3.4) [place]ckett # (Auto) (0.1-0.6) Eos # (Auto) (0.0-0.7) Baso # (Auto) (0.0-2.0) K/mm3 PT (9.4-12.5) SECONDS INR APTT (25.1-36.5) Seconds pCO2 (35-45) mm/Hg pO2 (30-55) mm/Hg HCO3 (21-28) mmol/L ABG pH (7.35-7.45) ABG Total CO2 (22-28) mmol.L ABG O2 Saturation (95-98) % ABG Base Excess (-2.0-3.0) mmol/L ABG Potassium (3.6-5.2) mmol/L VBG pH (7.32-7.43) VBG pCO2 (40-60) VBG HCO3 (21-28) mmol/l VBG Total CO2 (22-28) mmol.L VBG O2 Sat (Calc) (40-65) % VBG Base Excess (0.0-2.0) mmol/L VBG Potassium (3.6-5.2) mmol/L Sodium (132-148) mmol/L Chloride (98-107) mmol/L Glucose (65-105) mg/dl Lactate (0.7-2.1) mmol/L FiO2 % Pressure Support CPAP Potassium (3.6-5.0) mmol/L Carbon Dioxide (21-33) mmol/L Anion Gap (10-20) BUN (7-21) mg/dL Creatinine (0.7-1.2) mg/dl Est GFR ( Amer) Est GFR (Non-Af Amer) Random Glucose (70-110) mg/dL Hemoglobin A1c (4.2-6.5) % Calcium (8.4-10.5) mg/dL Total Bilirubin (0.2-1.3) mg/dL AST (14-36) U/L ALT (7-56) U/L Alkaline Phosphatase (38-126) U/L Troponin I 1.39 H* D ng/mL Total Protein (5.8-8.3) g/dL Albumin (3.0-4.8) g/dL Globulin gm/dL Albumin/Globulin Ratio (1.1-1.8) Procalcitonin < 0.05 L (0.19-0.49) NG/ML TSH 3rd Generation (0.46-4.68) mIU/mL Arterial Blood Potassium (3.6-5.2) mmol/L Venous Blood Potassium (3.6-5.2) mmol/L Urine Opiates Screen (NEGATIVE) Urine Methadone Screen (NEGATIVE) Ur Barbiturates Screen (NEGATIVE) Ur Phencyclidine Scrn (NEGATIVE) Ur Amphetamines Screen (NEGATIVE) U Benzodiazepines Scrn (NEGATIVE) U Oth Cocaine Metabols (NEGATIVE) U Cannabinoids Screen (NEGATIVE) Ur L.pneumophila Ag Negative (NEGATIVE) 01/30/18 01/30/18 01/30/18 Range/Units 15:36 15:30 15:30 WBC (4.5-11.0) 10^3/uL RBC (3.5-6.1) 10^6/uL Hgb (12.0-16.0) g/dL Hct (36.0-48.0) % MCV (80.0-105.0) fl MCH (25.0-35.0) pg MCHC (31.0-37.0) g/dl RDW (11.5-14.5) % Plt Count (120.0-450.0) 10^3/uL MPV (7.0-11.0) fl Gran % (50.0-68.0) % Lymph % (Auto) (22.0-35.0) % [place]ck[place] % (Auto) (1.0-6.0) % Eos % (Auto) (1.5-5.0) % Baso % (Auto) (0.0-3.0) % Gran # (1.4-6.5) Lymph # (Auto) (1.2-3.4) [place]ck[place] # (Auto) (0.1-0.6) Eos # (Auto) (0.0-0.7) Baso # (Auto) (0.0-2.0) K/mm3 PT (9.4-12.5) SECONDS INR APTT (25.1-36.5) Seconds pCO2 (35-45) mm/Hg pO2 98 H (30-55) mm/Hg HCO3 (21-28) mmol/L ABG pH (7.35-7.45) ABG Total CO2 (22-28) mmol.L ABG O2 Saturation (95-98) % ABG Base Excess (-2.0-3.0) mmol/L ABG Potassium (3.6-5.2) mmol/L VBG pH 7.31 L (7.32-7.43) VBG pCO2 42.0 (40-60) VBG HCO3 21.1 (21-28) mmol/l VBG Total CO2 22.4 (22-28) mmol.L VBG O2 Sat (Calc) 99.0 H (40-65) % VBG Base Excess -5.0 L (0.0-2.0) mmol/L VBG Potassium 3.8 (3.6-5.2) mmol/L Sodium 139.0 (132-148) mmol/L Chloride 105.0 (98-107) mmol/L Glucose 238 H (65-105) mg/dl Lactate 3.0 H (0.7-2.1) mmol/L FiO2 21.0 % Pressure Support CPAP Potassium (3.6-5.0) mmol/L Carbon Dioxide (21-33) mmol/L Anion Gap (10-20) BUN (7-21) mg/dL Creatinine (0.7-1.2) mg/dl Est GFR ( Amer) Est GFR (Non-Af Amer) Random Glucose (70-110) mg/dL Hemoglobin A1c (4.2-6.5) % Calcium (8.4-10.5) mg/dL Total Bilirubin (0.2-1.3) mg/dL AST (14-36) U/L ALT (7-56) U/L Alkaline Phosphatase (38-126) U/L Troponin I ng/mL Total Protein (5.8-8.3) g/dL Albumin (3.0-4.8) g/dL Globulin gm/dL Albumin/Globulin Ratio (1.1-1.8) Procalcitonin (0.19-0.49) NG/ML TSH 3rd Generation (0.46-4.68) mIU/mL Arterial Blood Potassium (3.6-5.2) mmol/L Venous Blood Potassium 3.8 (3.6-5.2) mmol/L Urine Opiates Screen Negative (NEGATIVE) Urine Methadone Screen Negative (NEGATIVE) Ur Barbiturates Screen Negative (NEGATIVE) Ur Phencyclidine Scrn Negative (NEGATIVE) Ur Amphetamines Screen Negative (NEGATIVE) U Benzodiazepines Scrn Negative (NEGATIVE) U Oth Cocaine Metabols Negative (NEGATIVE) U Cannabinoids Screen Negative (NEGATIVE) Ur L.pneumophila Ag Negative (NEGATIVE) 01/30/18 01/30/18 01/30/18 Range/Units 15:30 15:30 12:10 WBC (4.5-11.0) 10^3/uL RBC (3.5-6.1) 10^6/uL Hgb (12.0-16.0) g/dL Hct (36.0-48.0) % MCV (80.0-105.0) fl MCH (25.0-35.0) pg MCHC (31.0-37.0) g/dl RDW (11.5-14.5) % Plt Count (120.0-450.0) 10^3/uL MPV (7.0-11.0) fl Gran % (50.0-68.0) % Lymph % (Auto) (22.0-35.0) % [place]ckett % (Auto) (1.0-6.0) % Eos % (Auto) (1.5-5.0) % Baso % (Auto) (0.0-3.0) % Gran # (1.4-6.5) Lymph # (Auto) (1.2-3.4) [place] # (Auto) (0.1-0.6) Eos # (Auto) (0.0-0.7) Baso # (Auto) (0.0-2.0) K/mm3 PT (9.4-12.5) SECONDS INR APTT (25.1-36.5) Seconds pCO2 (35-45) mm/Hg pO2 (30-55) mm/Hg HCO3 (21-28) mmol/L ABG pH (7.35-7.45) ABG Total CO2 (22-28) mmol.L ABG O2 Saturation (95-98) % ABG Base Excess (-2.0-3.0) mmol/L ABG Potassium (3.6-5.2) mmol/L VBG pH (7.32-7.43) VBG pCO2 (40-60) VBG HCO3 (21-28) mmol/l VBG Total CO2 (22-28) mmol.L VBG O2 Sat (Calc) (40-65) % VBG Base Excess (0.0-2.0) mmol/L VBG Potassium (3.6-5.2) mmol/L Sodium (132-148) mmol/L Chloride (98-107) mmol/L Glucose (65-105) mg/dl Lactate (0.7-2.1) mmol/L FiO2 % Pressure Support CPAP Potassium (3.6-5.0) mmol/L Carbon Dioxide (21-33) mmol/L Anion Gap (10-20) BUN (7-21) mg/dL Creatinine (0.7-1.2) mg/dl Est GFR ( Amer) Est GFR (Non-Af Amer) Random Glucose (70-110) mg/dL Hemoglobin A1c 5.8 (4.2-6.5) % Calcium (8.4-10.5) mg/dL Total Bilirubin (0.2-1.3) mg/dL AST (14-36) U/L ALT (7-56) U/L Alkaline Phosphatase (38-126) U/L Troponin I ng/mL Total Protein (5.8-8.3) g/dL Albumin (3.0-4.8) g/dL Globulin gm/dL Albumin/Globulin Ratio (1.1-1.8) Procalcitonin < 0.05 L (0.19-0.49) NG/ML TSH 3rd Generation 3.34 (0.46-4.68) mIU/mL Arterial Blood Potassium (3.6-5.2) mmol/L Venous Blood Potassium (3.6-5.2) mmol/L Urine Opiates Screen (NEGATIVE) Urine Methadone Screen (NEGATIVE) Ur Barbiturates Screen (NEGATIVE) Ur Phencyclidine Scrn (NEGATIVE) Ur Amphetamines Screen (NEGATIVE) U Benzodiazepines Scrn (NEGATIVE) U Oth Cocaine Metabols (NEGATIVE) U Cannabinoids Screen (NEGATIVE) Ur L.pneumophila Ag (NEGATIVE) Laboratory Results - last 24 hr 01/30/18 01/30/18 01/30/18 12:10 15:30 15:30 WBC RBC Hgb Hct MCV MCH MCHC RDW Plt Count MPV Gran % Lymph % (Auto) [place]ckett % (Auto) Eos % (Auto) Baso % (Auto) Gran # Lymph # (Auto) [place] # (Auto) Eos # (Auto) Baso # (Auto) PT INR APTT pCO2 pO2 HCO3 ABG pH ABG Total CO2 ABG O2 Saturation ABG Base Excess ABG Potassium VBG pH VBG pCO2 VBG HCO3 VBG Total CO2 VBG O2 Sat (Calc) VBG Base Excess VBG Potassium Sodium Chloride Glucose Lactate FiO2 Pressure Support CPAP Potassium Carbon Dioxide Anion Gap BUN Creatinine Est GFR ( Amer) Est GFR (Non-Af Amer) Random Glucose Hemoglobin A1c 5.8 Calcium Total Bilirubin AST ALT Alkaline Phosphatase Troponin I Total Protein Albumin Globulin Albumin/Globulin Ratio Procalcitonin < 0.05 L TSH 3rd Generation 3.34 Arterial Blood Potassium Venous Blood Potassium Urine Opiates Screen Urine Methadone Screen Ur Barbiturates Screen Ur Phencyclidine Scrn Ur Amphetamines Screen U Benzodiazepines Scrn U Oth Cocaine Metabols U Cannabinoids Screen Ur L.pneumophila Ag 01/30/18 01/30/18 01/30/18 15:30 15:30 15:36 WBC RBC Hgb Hct MCV MCH MCHC RDW Plt Count MPV Gran % Lymph % (Auto) [place]ck[place] % (Auto) Eos % (Auto) Baso % (Auto) Gran # Lymph # (Auto) [place] # (Auto) Eos # (Auto) Baso # (Auto) PT INR APTT pCO2 pO2 98 H HCO3 ABG pH ABG Total CO2 ABG O2 Saturation ABG Base Excess ABG Potassium VBG pH 7.31 L VBG pCO2 42.0 VBG HCO3 21.1 VBG Total CO2 22.4 VBG O2 Sat (Calc) 99.0 H VBG Base Excess -5.0 L VBG Potassium 3.8 Sodium 139.0 Chloride 105.0 Glucose 238 H Lactate 3.0 H FiO2 21.0 Pressure Support CPAP Potassium Carbon Dioxide Anion Gap BUN Creatinine Est GFR ( Amer) Est GFR (Non-Af Amer) Random Glucose Hemoglobin A1c Calcium Total Bilirubin AST ALT Alkaline Phosphatase Troponin I Total Protein Albumin Globulin Albumin/Globulin Ratio Procalcitonin TSH 3rd Generation Arterial Blood Potassium Venous Blood Potassium 3.8 Urine Opiates Screen Negative Urine Methadone Screen Negative Ur Barbiturates Screen Negative Ur Phencyclidine Scrn Negative Ur Amphetamines Screen Negative U Benzodiazepines Scrn Negative U Oth Cocaine Metabols Negative U Cannabinoids Screen Negative Ur L.pneumophila Ag Negative 01/30/18 01/30/18 01/30/18 18:39 19:20 21:00 WBC RBC Hgb Hct MCV MCH MCHC RDW Plt Count MPV Gran % Lymph % (Auto) [place] % (Auto) Eos % (Auto) Baso % (Auto) Gran # Lymph # (Auto) [place] # (Auto) Eos # (Auto) Baso # (Auto) PT INR APTT pCO2 pO2 HCO3 ABG pH ABG Total CO2 ABG O2 Saturation ABG Base Excess ABG Potassium VBG pH VBG pCO2 VBG HCO3 VBG Total CO2 VBG O2 Sat (Calc) VBG Base Excess VBG Potassium Sodium Chloride Glucose Lactate FiO2 Pressure Support CPAP Potassium Carbon Dioxide Anion Gap BUN Creatinine Est GFR ( Amer) Est GFR (Non-Af Amer) Random Glucose Hemoglobin A1c Calcium Total Bilirubin AST ALT Alkaline Phosphatase Troponin I 1.39 H* D Total Protein Albumin Globulin Albumin/Globulin Ratio Procalcitonin < 0.05 L TSH 3rd Generation Arterial Blood Potassium Venous Blood Potassium Urine Opiates Screen Urine Methadone Screen Ur Barbiturates Screen Ur Phencyclidine Scrn Ur Amphetamines Screen U Benzodiazepines Scrn U Oth Cocaine Metabols U Cannabinoids Screen Ur L.pneumophila Ag Negative 01/31/18 01/31/18 01/31/18 01:00 05:20 05:20 WBC 13.8 H D RBC 4.00 Hgb 11.6 L Hct 36.3 MCV 90.8 D MCH 29.0 MCHC 32.0 RDW 13.3 Plt Count 285 MPV 9.8 Gran % 84.3 H Lymph % (Auto) 9.4 L Crockett % (Auto) 6.3 H Eos % (Auto) 0.0 L Baso % (Auto) 0.0 Gran # 11.64 H Lymph # (Auto) 1.3 [place]ett # (Auto) 0.9 H Eos # (Auto) 0.0 Baso # (Auto) 0.00 PT INR APTT pCO2 pO2 HCO3 ABG pH ABG Total CO2 ABG O2 Saturation ABG Base Excess ABG Potassium VBG pH VBG pCO2 VBG HCO3 VBG Total CO2 VBG O2 Sat (Calc) VBG Base Excess VBG Potassium Sodium 139 Chloride 110 H Glucose Lactate FiO2 Pressure Support CPAP Potassium 4.0 Carbon Dioxide 21 Anion Gap 13 BUN 15 Creatinine 0.8 Est GFR ( Amer) > 60 Est GFR (Non-Af Amer) > 60 Random Glucose 123 H Hemoglobin A1c Calcium 8.0 L Total Bilirubin 0.5 AST 44 H D ALT 26 Alkaline Phosphatase 59 Troponin I 1.76 H* D 1.20 H* D Total Protein 6.9 Albumin 3.8 Globulin 3.2 Albumin/Globulin Ratio 1.2 Procalcitonin TSH 3rd Generation Arterial Blood Potassium Venous Blood Potassium Urine Opiates Screen Urine Methadone Screen Ur Barbiturates Screen Ur Phencyclidine Scrn Ur Amphetamines Screen U Benzodiazepines Scrn U Oth Cocaine Metabols U Cannabinoids Screen Ur L.pneumophila Ag 01/31/18 01/31/18 01/31/18 05:20 09:02 12:00 WBC RBC Hgb Hct MCV MCH MCHC RDW Plt Count MPV Gran % Lymph % (Auto) [place]ck[place] % (Auto) Eos % (Auto) Baso % (Auto) Gran # Lymph # (Auto) [place] # (Auto) Eos # (Auto) Baso # (Auto) PT 11.9 INR 1.03 APTT 25.4 172.4 H* pCO2 38 pO2 239.0 H HCO3 19.6 L ABG pH 7.32 L ABG Total CO2 20.8 L ABG O2 Saturation 100.2 H ABG Base Excess -6.0 L ABG Potassium 3.8 VBG pH VBG pCO2 VBG HCO3 VBG Total CO2 VBG O2 Sat (Calc) VBG Base Excess VBG Potassium Sodium 136.0 Chloride 110.0 H Glucose 125 H Lactate 0.7 FiO2 50.0 Pressure Support 5 CPAP 5 Potassium Carbon Dioxide Anion Gap BUN Creatinine Est GFR ( Amer) Est GFR (Non-Af Amer) Random Glucose Hemoglobin A1c Calcium Total Bilirubin AST ALT Alkaline Phosphatase Troponin I Total Protein Albumin Globulin Albumin/Globulin Ratio Procalcitonin TSH 3rd Generation Arterial Blood Potassium 3.8 Venous Blood Potassium Urine Opiates Screen Urine Methadone Screen Ur Barbiturates Screen Ur Phencyclidine Scrn Ur Amphetamines Screen U Benzodiazepines Scrn U Oth Cocaine Metabols U Cannabinoids Screen Ur L.pneumophila Ag Radiology Impressions: Radiology Impressions Head CT 01/30/18 12:25 IMPRESSION: No acute hemorrhage. Cervical Spine CT 01/30/18 16:31 IMPRESSION: No CT evidence of acute displaced fracture or subluxation. Brain MRI 01/31/18 07:49 IMPRESSION: No acute intracranial abnormality. Mild age-related global parenchymal volume loss. Moderate bilateral mastoid effusions. EKG/Cardiology Studies: Cardiology / EKG Studies 01/30/18 21:34 EKG [ELECTROCARDIOGRAM] Stat Comment: Reason For Exam: increased troponin Critical Care Progress Note - Nutrition Nutrition: Nutrition Category Date Time Status NPO Diet [DIET] Diets 01/30/18 Breakfast Ordered Addendum Addendum: 01/31/18 15:01 MICU Attending Addendum: 67F found unresponsve outside her home, intubated for airway support currently in the MICU. She has a hx of asthma however unclear if this was an exasc, I would expect her to have a more dramatic presentatoin (resp arrest for example). Awake and alert this AM, successful SBT thus extubated. CT Spine was neg and no pain on neck exam. Cleared c-collar for removal. TNI elevated, on heparin drip, given ASA overnight, cardio planning for cath tomorrow for asthma, cont steroids and duonebs for now d/c donaldson f/u cultures, can likely d/c abx by tomorrow Candace Montalvo MD Pulmonary Critical Care Attending Critical Care Time: 41mins
[2018-01-31 09:06] LABS: ARTERIAL BLOOD GAS HCO3 19.6 mmol/L (21-28); ARTERIAL BLOOD GAS O2 SAT 100.2 % (95-98); ARTERIAL BLOOD GAS PCO2 38 mm/Hg (35-45); ARTERIAL BLOOD GAS PH 7.32 (7.35-7.45); ARTERIAL BLOOD GAS TCO2 20.8 mmol.L (22-28)
--- NOTE | 2018-01-31 10:02 | CT ---
Date of service: 01/30/2018 PROCEDURE: CT HEAD WITHOUT CONTRAST. HISTORY: COMPARISON: None available. TECHNIQUE: Axial computed tomography images were obtained through the head/brain without intravenous contrast. Radiation dose: Total exam DLP = 877.29 mGy-cm. This CT exam was performed using one or more of the following dose reduction techniques: Automated exposure control, adjustment of the mA and/or kV according to patient size, and/or use of iterative reconstruction technique. FINDINGS: HEMORRHAGE: No intracranial hemorrhage. BRAIN: No mass effect or edema. No atrophy or chronic microvascular ischemic changes. VENTRICLES: Unremarkable. No hydrocephalus. CALVARIUM: Unremarkable. PARANASAL SINUSES: Unremarkable as visualized. No significant inflammatory changes. MASTOID AIR CELLS: Unremarkable as visualized. No inflammatory changes. OTHER FINDINGS: NG tube in place. IMPRESSION: No acute hemorrhage.
[2018-01-31] MEDS: MethylPREDNISolone 40 mg Vial IVP SCH (11:26)
[2018-01-31] MEDS: Vancomycin 1gm in NS 250ml 1 GM/250 ML BAG IVPB SCH ×2 (11:51→23:20)
--- NOTE | 2018-01-31 12:01 | CP.PCM.CON ---
<Chente Mendes - Last Filed: 01/31/18 16:04> History of Present Illness - History of Present Illness History of Present Illness: Neurology Consult Note for Dr. Marley Reason for Consultation: AMS Patient is a 67 yo F with PMH of asthma, OA, and HLD presents to [facility] for AMS. Patient was cooking when she started have a hard time breathing. She tried to get outside to breath better, but collapsed in the pace of her building. She next remembers waking up in the hospital. According to the family at bedside, she was found in the pace by the mailman, who called EMS. Patient was intubated in the field and brought to [facility]. Patient is now extubated. Patient is now awake, alert, and oriented x3. Patient denies CP, SOB, n/v/d, abdominal pain, fever, chills, HSIEH, dizziness, weakness, or numbness. Review of Systems - Review of Systems All systems: reviewed and no additional remarkable complaints except (12 point ROS reviewed and is negative other than what is stated in HPI.) Past Patient History - Past Social History Smoking Status: Never Smoked - CARDIAC Hx Cardiac Disorders: Yes Hx Hypercholesterolemia: Yes - PULMONARY Hx Respiratory Disorders: Yes Hx Asthma: Yes - NEUROLOGICAL Hx Neurological Disorder: No - HEENT Hx HEENT Problems: No - RENAL Hx Chronic Kidney Disease: No - ENDOCRINE/METABOLIC Hx Endocrine Disorders: No - HEMATOLOGICAL/ONCOLOGICAL Hx Blood Disorders: No - INTEGUMENTARY Hx Dermatological Problems: No - MUSCULOSKELETAL/RHEUMATOLOGICAL Hx Musculoskeletal Disorders: Yes Hx Osteoarthritis: Yes Hx Osteoporosis: Yes - GASTROINTESTINAL Hx Gastrointestinal Disorders: No - GENITOURINARY/GYNECOLOGICAL Hx Genitourinary Disorders: Yes (D/C) - PSYCHIATRIC Hx Psychophysiologic Disorder: No - SURGICAL HISTORY Hx Surgeries: No - ANESTHESIA Hx Anesthesia: No Meds Allergies/Adverse Reactions: Allergies Allergy/AdvReac Type Severity Reaction Status Date / Time No Known Allergies Allergy Verified 01/30/18 18:34 - Medications Medications: Current Medications Albuterol/Ipratropium (Duoneb 3 Mg/0.5 Mg (3 Ml) Ud) 3 ml IH [id number] PRN PRN Reason: Wheezing Last Admin: 01/31/18 07:04 Dose: 3 ml Aspirin (Aspirin Supp) 300 mg RC DAILY [facility] Sodium Chloride (Sodium Chloride 0.9%) 1,000 mls @ 100 mls/hr IV .Q10H [facility] Last Admin: 01/30/18 13:43 Dose: 100 mls/hr Piperacillin Sod/Tazobactam Sod (Zosyn 3.375 In Ns 100ml) 100 mls @ 25 mls/hr IVPB Q8 [facility]; Protocol Stop: 02/06/18 22:01 Last Admin: 01/31/18 05:27 Dose: 25 mls/hr Acetaminophen (Ofirmev) 1,000 mg in 100 mls @ 400 mls/hr IVPB Q6H PRN PRN Reason: Temperature Stop: 02/01/18 23:21 Last Admin: 01/30/18 23:38 Dose: 400 mls/hr Heparin Sodium/Sodium Chloride (Heparin 36268 Units/250ml 1/2 Normal Saline) 25,000 units in 250 mls @ 8.4 mls/hr IV .Q24H [facility]; Protocol Last Admin: 01/31/18 05:28 Dose: 12 units/kg/hr, 8.4 mls/hr Vancomycin HCl (Vancomycin 1gm) 1 gm in 250 mls @ 167 mls/hr IVPB Q12H [facility]; Protocol Methylprednisolone (Solu-Medrol) 40 mg IVP DAILY [facility] Last Admin: 01/31/18 11:26 Dose: 40 mg Metoprolol Tartrate (Lopressor) 12.5 mg PO BID [facility] Physical Exam - Constitutional Appears: No Acute Distress - Head Exam Head Exam: NORMAL INSPECTION - Eye Exam Eye Exam: Normal appearance - ENT Exam ENT Exam: Mucous Membranes Moist - Neck Exam Neck exam: Positive for: Normal Inspection - Respiratory Exam Respiratory Exam: Clear to Auscultation Bilateral, NORMAL BREATHING PATTERN - Cardiovascular Exam Cardiovascular Exam: REGULAR RHYTHM - GI/Abdominal Exam GI & Abdominal Exam: Normal Bowel Sounds, Soft - Extremities Exam Extremities exam: Positive for: normal inspection - Neurological Exam Neurological exam: Alert, CN II-XII Intact, Oriented x3 - Psychiatric Exam Psychiatric exam: Normal Affect, Normal Mood - Skin Skin Exam: Normal Color Results - Vital Signs Recent Vital Signs: Last Vital Signs Temp 98.6 F 01/31/18 08:30 Pulse 77 01/31/18 10:00 Resp 20 01/31/18 07:12 BP 100/67 01/31/18 08:00 Pulse Ox 100 01/31/18 08:30 - Labs Result Diagrams: 01/31/18 05:20 01/31/18 05:20 Labs: Laboratory Results - last 24 hr 01/30/18 01/30/18 01/30/18 12:10 12:10 12:10 WBC 10.2 RBC 4.15 Hgb 12.2 Hct 39.7 MCV 95.7 MCH 29.4 MCHC 30.7 L RDW 13.1 Plt Count 357 MPV 9.7 Gran % 38.7 L Lymph % (Auto) 56.5 H Yates % (Auto) 2.9 Eos % (Auto) 1.3 L Baso % (Auto) 0.6 Gran # 3.95 Lymph # (Auto) 5.8 H Yates # (Auto) 0.3 Eos # (Auto) 0.1 Baso # (Auto) 0.06 PT 10.9 INR 0.95 APTT 30.5 pCO2 pO2 HCO3 ABG pH ABG Total CO2 ABG O2 Saturation ABG Base Excess ABG Potassium VBG pH VBG pCO2 VBG HCO3 VBG Total CO2 VBG O2 Sat (Calc) VBG Base Excess VBG Potassium Sodium 138 Chloride 102 Glucose Lactate FiO2 Pressure Support CPAP Potassium 4.1 Carbon Dioxide 18 L Anion Gap 22 H BUN 17 Creatinine 1.1 Est GFR ( Amer) 60 Est GFR (Non-Af Amer) 50 Random Glucose 372 H* Hemoglobin A1c Calcium 8.6 Phosphorus 10.3 H Magnesium 4.2 H Total Bilirubin 0.3 AST 33 ALT 21 Alkaline Phosphatase 63 Total Creatine Kinase 80 Troponin I 0.06 NT-Pro-B Natriuret Pep 89.9 Total Protein 7.4 Albumin 4.2 Globulin 3.2 Albumin/Globulin Ratio 1.3 Triglycerides 122 Cholesterol 248 H LDL Cholesterol Direct 132 H HDL Cholesterol 66 H Procalcitonin TSH 3rd Generation Arterial Blood Potassium Venous Blood Potassium Urine Color Urine Appearance Urine pH Ur Specific State Center Urine Protein Urine Glucose (UA) Urine Ketones Urine Blood Urine Nitrate Urine Bilirubin Urine Urobilinogen Ur Leukocyte Esterase Urine RBC Urine WBC Ur Epithelial Cells Urine Bacteria Hyaline Casts Salicylates Urine Opiates Screen Urine Methadone Screen Acetaminophen Ur Barbiturates Screen Ur Phencyclidine Scrn Ur Amphetamines Screen U Benzodiazepines Scrn U Oth Cocaine Metabols U Cannabinoids Screen Alcohol, Quantitative Ur L.pneumophila Ag Blood Type Blood Type Confirm Antibody Screen BBK History Checked 01/30/18 01/30/18 01/30/18 12:10 12:10 12:10 WBC RBC Hgb Hct MCV MCH MCHC RDW Plt Count MPV Gran % Lymph % (Auto) Yates % (Auto) Eos % (Auto) Baso % (Auto) Gran # Lymph # (Auto) Yates # (Auto) Eos # (Auto) Baso # (Auto) PT INR APTT pCO2 63 H pO2 551.0 H HCO3 15.9 L ABG pH 7.01 L* ABG Total CO2 17.8 L ABG O2 Saturation 100.3 H ABG Base Excess -15.8 L ABG Potassium 3.4 L VBG pH VBG pCO2 VBG HCO3 VBG Total CO2 VBG O2 Sat (Calc) VBG Base Excess VBG Potassium Sodium 135.0 Chloride 103.0 Glucose 375 H Lactate 7.9 H* FiO2 100.0 Pressure Support CPAP Potassium Carbon Dioxide Anion Gap BUN Creatinine Est GFR ( Amer) Est GFR (Non-Af Amer) Random Glucose Hemoglobin A1c 5.8 Calcium Phosphorus Magnesium Total Bilirubin AST ALT Alkaline Phosphatase Total Creatine Kinase Troponin I NT-Pro-B Natriuret Pep Total Protein Albumin Globulin Albumin/Globulin Ratio Triglycerides Cholesterol LDL Cholesterol Direct HDL Cholesterol Procalcitonin TSH 3rd Generation Arterial Blood Potassium 3.4 L Venous Blood Potassium Urine Color Urine Appearance Urine pH Ur Specific State [place] Urine Protein Urine Glucose (UA) Urine Ketones Urine Blood Urine Nitrate Urine Bilirubin Urine Urobilinogen Ur Leukocyte Esterase Urine RBC Urine WBC Ur Epithelial Cells Urine Bacteria Hyaline Casts Salicylates < 1 L Urine Opiates Screen Urine Methadone Screen Acetaminophen < 10.0 L Ur Barbiturates Screen Ur Phencyclidine Scrn Ur Amphetamines Screen U Benzodiazepines Scrn U Oth Cocaine Metabols U Cannabinoids Screen Alcohol, Quantitative Ur L.pneumophila Ag Blood Type Blood Type Confirm Antibody Screen BBK History Checked 01/30/18 01/30/18 01/30/18 12:10 12:10 12:40 WBC RBC Hgb Hct MCV MCH MCHC RDW Plt Count MPV Gran % Lymph % (Auto) Yates % (Auto) Eos % (Auto) Baso % (Auto) Gran # Lymph # (Auto) Yates # (Auto) Eos # (Auto) Baso # (Auto) PT INR APTT pCO2 pO2 HCO3 ABG pH ABG Total CO2 ABG O2 Saturation ABG Base Excess ABG Potassium VBG pH VBG pCO2 VBG HCO3 VBG Total CO2 VBG O2 Sat (Calc) VBG Base Excess VBG Potassium Sodium Chloride Glucose Lactate FiO2 Pressure Support CPAP Potassium Carbon Dioxide Anion Gap BUN Creatinine Est GFR ( Amer) Est GFR (Non-Af Amer) Random Glucose Hemoglobin A1c Calcium Phosphorus Magnesium Total Bilirubin AST ALT Alkaline Phosphatase Total Creatine Kinase Troponin I NT-Pro-B Natriuret Pep Total Protein Albumin Globulin Albumin/Globulin Ratio Triglycerides Cholesterol LDL Cholesterol Direct HDL Cholesterol Procalcitonin TSH 3rd Generation Arterial Blood Potassium Venous Blood Potassium Urine Color Urine Appearance Urine pH Ur Specific State Center Urine Protein Urine Glucose (UA) Urine Ketones Urine Blood Urine Nitrate Urine Bilirubin Urine Urobilinogen Ur Leukocyte Esterase Urine RBC Urine WBC Ur Epithelial Cells Urine Bacteria Hyaline Casts Salicylates Urine Opiates Screen Urine Methadone Screen Acetaminophen Ur Barbiturates Screen Ur Phencyclidine Scrn Ur Amphetamines Screen U Benzodiazepines Scrn U Oth Cocaine Metabols U Cannabinoids Screen Alcohol, Quantitative < 10 Ur L.pneumophila Ag Blood Type B POSITIVE Blood Type Confirm B POSITIVE Antibody Screen Negative BBK History Checked No verified bt 01/30/18 01/30/18 01/30/18 13:00 13:00 15:30 WBC RBC Hgb Hct MCV MCH MCHC RDW Plt Count MPV Gran % Lymph % (Auto) Yates % (Auto) Eos % (Auto) Baso % (Auto) Gran # Lymph # (Auto) Yates # (Auto) Eos # (Auto) Baso # (Auto) PT INR APTT pCO2 pO2 HCO3 ABG pH ABG Total CO2 ABG O2 Saturation ABG Base Excess ABG Potassium VBG pH VBG pCO2 VBG HCO3 VBG Total CO2 VBG O2 Sat (Calc) VBG Base Excess VBG Potassium Sodium Chloride Glucose Lactate FiO2 Pressure Support CPAP Potassium Carbon Dioxide Anion Gap BUN Creatinine Est GFR ( Amer) Est GFR (Non-Af Amer) Random Glucose Hemoglobin A1c Calcium Phosphorus Magnesium Total Bilirubin AST ALT Alkaline Phosphatase Total Creatine Kinase Troponin I NT-Pro-B Natriuret Pep Total Protein Albumin Globulin Albumin/Globulin Ratio Triglycerides Cholesterol LDL Cholesterol Direct HDL Cholesterol Procalcitonin < 0.05 L TSH 3rd Generation Arterial Blood Potassium Venous Blood Potassium Urine Color Yellow Urine Appearance Clear Urine pH 6.5 Ur Specific State Center 1.025 Urine Protein 30 H Urine Glucose (UA) >=1000 Urine Ketones Negative Urine Blood Moderate H Urine Nitrate Negative Urine Bilirubin Negative Urine Urobilinogen 0.2 Ur Leukocyte Esterase Negative Urine RBC 5 - 10 Urine WBC 0 - 2 Ur Epithelial Cells 0 - 2 Urine Bacteria Small Hyaline Casts 0 - 2 Salicylates Urine Opiates Screen Negative Urine Methadone Screen Negative Acetaminophen Ur Barbiturates Screen Negative Ur Phencyclidine Scrn Negative Ur Amphetamines Screen Negative U Benzodiazepines Scrn Negative U Oth Cocaine Metabols Negative U Cannabinoids Screen Negative Alcohol, Quantitative Ur L.pneumophila Ag Blood Type Blood Type Confirm Antibody Screen BBK History Checked 01/30/18 01/30/18 01/30/18 15:30 15:30 15:30 WBC RBC Hgb Hct MCV MCH MCHC RDW Plt Count MPV Gran % Lymph % (Auto) Yates % (Auto) Eos % (Auto) Baso % (Auto) Gran # Lymph # (Auto) Yates # (Auto) Eos # (Auto) Baso # (Auto) PT INR APTT pCO2 pO2 HCO3 ABG pH ABG Total CO2 ABG O2 Saturation ABG Base Excess ABG Potassium VBG pH VBG pCO2 VBG HCO3 VBG Total CO2 VBG O2 Sat (Calc) VBG Base Excess VBG Potassium Sodium Chloride Glucose Lactate FiO2 Pressure Support CPAP Potassium Carbon Dioxide Anion Gap BUN Creatinine Est GFR ( Amer) Est GFR (Non-Af Amer) Random Glucose Hemoglobin A1c Calcium Phosphorus Magnesium Total Bilirubin AST ALT Alkaline Phosphatase Total Creatine Kinase Troponin I NT-Pro-B Natriuret Pep Total Protein Albumin Globulin Albumin/Globulin Ratio Triglycerides Cholesterol LDL Cholesterol Direct HDL Cholesterol Procalcitonin TSH 3rd Generation 3.34 Arterial Blood Potassium Venous Blood Potassium Urine Color Urine Appearance Urine pH Ur Specific State [place] Urine Protein Urine Glucose (UA) Urine Ketones Urine Blood Urine Nitrate Urine Bilirubin Urine Urobilinogen Ur Leukocyte Esterase Urine RBC Urine WBC Ur Epithelial Cells Urine Bacteria Hyaline Casts Salicylates Urine Opiates Screen Negative Urine Methadone Screen Negative Acetaminophen Ur Barbiturates Screen Negative Ur Phencyclidine Scrn Negative Ur Amphetamines Screen Negative U Benzodiazepines Scrn Negative U Oth Cocaine Metabols Negative U Cannabinoids Screen Negative Alcohol, Quantitative Ur L.pneumophila Ag Negative Blood Type Blood Type Confirm Antibody Screen BBK History Checked 01/30/18 01/30/18 01/31/18 15:36 19:20 01:00 WBC RBC Hgb Hct MCV MCH MCHC RDW Plt Count MPV Gran % Lymph % (Auto) Yates % (Auto) Eos % (Auto) Baso % (Auto) Gran # Lymph # (Auto) Yates # (Auto) Eos # (Auto) Baso # (Auto) PT INR APTT pCO2 pO2 98 H HCO3 ABG pH ABG Total CO2 ABG O2 Saturation ABG Base Excess ABG Potassium VBG pH 7.31 L VBG pCO2 42.0 VBG HCO3 21.1 VBG Total CO2 22.4 VBG O2 Sat (Calc) 99.0 H VBG Base Excess -5.0 L VBG Potassium 3.8 Sodium 139.0 Chloride 105.0 Glucose 238 H Lactate 3.0 H FiO2 21.0 Pressure Support CPAP Potassium Carbon Dioxide Anion Gap BUN Creatinine Est GFR ( Amer) Est GFR (Non-Af Amer) Random Glucose Hemoglobin A1c Calcium Phosphorus Magnesium Total Bilirubin AST ALT Alkaline Phosphatase Total Creatine Kinase Troponin I 1.39 H* D 1.76 H* D NT-Pro-B Natriuret Pep Total Protein Albumin Globulin Albumin/Globulin Ratio Triglycerides Cholesterol LDL Cholesterol Direct HDL Cholesterol Procalcitonin TSH 3rd Generation Arterial Blood Potassium Venous Blood Potassium 3.8 Urine Color Urine Appearance Urine pH Ur Specific State [place] Urine Protein Urine Glucose (UA) Urine Ketones Urine Blood Urine Nitrate Urine Bilirubin Urine Urobilinogen Ur Leukocyte Esterase Urine RBC Urine WBC Ur Epithelial Cells Urine Bacteria Hyaline Casts Salicylates Urine Opiates Screen Urine Methadone Screen Acetaminophen Ur Barbiturates Screen Ur Phencyclidine Scrn Ur Amphetamines Screen U Benzodiazepines Scrn U Oth Cocaine Metabols U Cannabinoids Screen Alcohol, Quantitative Ur L.pneumophila Ag Blood Type Blood Type Confirm Antibody Screen BBK History Checked 01/31/18 01/31/18 01/31/18 05:20 05:20 05:20 WBC 13.8 H D RBC 4.00 Hgb 11.6 L Hct 36.3 MCV 90.8 D MCH 29.0 MCHC 32.0 RDW 13.3 Plt Count 285 MPV 9.8 Gran % 84.3 H Lymph % (Auto) 9.4 L Yates % (Auto) 6.3 H Eos % (Auto) 0.0 L Baso % (Auto) 0.0 Gran # 11.64 H Lymph # (Auto) 1.3 Yates # (Auto) 0.9 H Eos # (Auto) 0.0 Baso # (Auto) 0.00 PT 11.9 INR 1.03 APTT 25.4 pCO2 pO2 HCO3 ABG pH ABG Total CO2 ABG O2 Saturation ABG Base Excess ABG Potassium VBG pH VBG pCO2 VBG HCO3 VBG Total CO2 VBG O2 Sat (Calc) VBG Base Excess VBG Potassium Sodium 139 Chloride 110 H Glucose Lactate FiO2 Pressure Support CPAP Potassium 4.0 Carbon Dioxide 21 Anion Gap 13 BUN 15 Creatinine 0.8 Est GFR ( Amer) > 60 Est GFR (Non-Af Amer) > 60 Random Glucose 123 H Hemoglobin A1c Calcium 8.0 L Phosphorus Magnesium Total Bilirubin 0.5 AST 44 H D ALT 26 Alkaline Phosphatase 59 Total Creatine Kinase Troponin I 1.20 H* D NT-Pro-B Natriuret Pep Total Protein 6.9 Albumin 3.8 Globulin 3.2 Albumin/Globulin Ratio 1.2 Triglycerides Cholesterol LDL Cholesterol Direct HDL Cholesterol Procalcitonin TSH 3rd Generation Arterial Blood Potassium Venous Blood Potassium Urine Color Urine Appearance Urine pH Ur Specific State Center Urine Protein Urine Glucose (UA) Urine Ketones Urine Blood Urine Nitrate Urine Bilirubin Urine Urobilinogen Ur Leukocyte Esterase Urine RBC Urine WBC Ur Epithelial Cells Urine Bacteria Hyaline Casts Salicylates Urine Opiates Screen Urine Methadone Screen Acetaminophen Ur Barbiturates Screen Ur Phencyclidine Scrn Ur Amphetamines Screen U Benzodiazepines Scrn U Oth Cocaine Metabols U Cannabinoids Screen Alcohol, Quantitative Ur L.pneumophila Ag Blood Type Blood Type Confirm Antibody Screen BBK History Checked 01/31/18 09:02 WBC RBC Hgb Hct MCV MCH MCHC RDW Plt Count MPV Gran % Lymph % (Auto) Yates % (Auto) Eos % (Auto) Baso % (Auto) Gran # Lymph # (Auto) Yates # (Auto) Eos # (Auto) Baso # (Auto) PT INR APTT pCO2 38 pO2 239.0 H HCO3 19.6 L ABG pH 7.32 L ABG Total CO2 20.8 L ABG O2 Saturation 100.2 H ABG Base Excess -6.0 L ABG Potassium 3.8 VBG pH VBG pCO2 VBG HCO3 VBG Total CO2 VBG O2 Sat (Calc) VBG Base Excess VBG Potassium Sodium 136.0 Chloride 110.0 H Glucose 125 H Lactate 0.7 FiO2 50.0 Pressure Support 5 CPAP 5 Potassium Carbon Dioxide Anion Gap BUN Creatinine Est GFR ( Amer) Est GFR (Non-Af Amer) Random Glucose Hemoglobin A1c Calcium Phosphorus Magnesium Total Bilirubin AST ALT Alkaline Phosphatase Total Creatine Kinase Troponin I NT-Pro-B Natriuret Pep Total Protein Albumin Globulin Albumin/Globulin Ratio Triglycerides Cholesterol LDL Cholesterol Direct HDL Cholesterol Procalcitonin TSH 3rd Generation Arterial Blood Potassium 3.8 Venous Blood Potassium Urine Color Urine Appearance Urine pH Ur Specific State Center Urine Protein Urine Glucose (UA) Urine Ketones Urine Blood Urine Nitrate Urine Bilirubin Urine Urobilinogen Ur Leukocyte Esterase Urine RBC Urine WBC Ur Epithelial Cells Urine Bacteria Hyaline Casts Salicylates Urine Opiates Screen Urine Methadone Screen Acetaminophen Ur Barbiturates Screen Ur Phencyclidine Scrn Ur Amphetamines Screen U Benzodiazepines Scrn U Oth Cocaine Metabols U Cannabinoids Screen Alcohol, Quantitative Ur L.pneumophila Ag Blood Type Blood Type Confirm Antibody Screen BBK History Checked Assessment & Plan - Assessment and Plan (Free Text) Assessment: 67 yo F with PMH of asthma, OA, and HLD presents to [facility] for respiratory distress. Patient was intubated in the field, now extubated. Neurology was c onsulted for AMS. Plan: - Head CT negative - F/u brain MRI Patient discussed in detail with Dr. Marley. Jagdish Mendes, DO PGY2 <Hugo Marley - Last Filed: 01/31/18 17:45> Meds - Medications Medications: Current Medications Albuterol/Ipratropium (Duoneb 3 Mg/0.5 Mg (3 Ml) Ud) 3 ml IH [id number] PRN PRN Reason: Wheezing Last Admin: 01/31/18 13:16 Dose: 3 ml Aspirin (Ecotrin) 81 mg PO DAILY [facility] Last Admin: 01/31/18 15:26 Dose: 81 mg Clopidogrel Bisulfate (Plavix) 75 mg PO 0700 [facility] Famotidine (Pepcid) 40 mg PO HS [facility] Sodium Chloride (Sodium Chloride 0.9%) 1,000 mls @ 100 mls/hr IV .Q10H [facility] Last Admin: 01/30/18 13:43 Dose: 100 mls/hr Piperacillin Sod/Tazobactam Sod (Zosyn 3.375 In Ns 100ml) 100 mls @ 25 mls/hr IVPB Q8 [facility]; Protocol Stop: 02/06/18 22:01 Last Admin: 01/31/18 14:03 Dose: 25 mls/hr Acetaminophen (Ofirmev) 1,000 mg in 100 mls @ 400 mls/hr IVPB Q6H PRN PRN Reason: Temperature Stop: 02/01/18 23:21 Last Admin: 01/30/18 23:38 Dose: 400 mls/hr Heparin Sodium/Sodium Chloride (Heparin 41206 Units/250ml 1/2 Normal Saline) 25,000 units in 250 mls @ 8.4 mls/hr IV .Q24H [facility]; Protocol Stop: 02/01/18 07:00 Last Titration: 01/31/18 14:00 Dose: 9 units/kg/hr, 6.3 mls/hr Vancomycin HCl (Vancomycin 1gm) 1 gm in 250 mls @ 167 mls/hr IVPB Q12H [facility]; Protocol Last Admin: 01/31/18 11:51 Dose: 167 mls/hr Methylprednisolone (Solu-Medrol) 40 mg IVP DAILY [facility] Last Admin: 01/31/18 11:26 Dose: 40 mg Metoprolol Tartrate (Lopressor) 12.5 mg PO BID [facility] Last Admin: 01/31/18 12:05 Dose: Not Given Results - Vital Signs Recent Vital Signs: Last Vital Signs Temp 96.6 F L 01/31/18 16:20 Pulse 85 01/31/18 17:10 Resp 29 H 01/31/18 17:10 BP 105/63 01/31/18 17:00 Pulse Ox 100 01/31/18 17:10 - Labs Result Diagrams: 01/31/18 05:20 01/31/18 05:20 Labs: Laboratory Results - last 24 hr 01/30/18 01/30/18 01/30/18 12:10 15:30 15:30 WBC RBC Hgb Hct MCV MCH MCHC RDW Plt Count MPV Gran % Lymph % (Auto) Yates % (Auto) Eos % (Auto) Baso % (Auto) Gran # Lymph # (Auto) Yates # (Auto) Eos # (Auto) Baso # (Auto) PT INR APTT pCO2 pO2 HCO3 ABG pH ABG Total CO2 ABG O2 Saturation ABG Base Excess ABG Potassium Glucose Lactate FiO2 Pressure Support CPAP Sodium Potassium Chloride Carbon Dioxide Anion Gap BUN Creatinine Est GFR ( Amer) Est GFR (Non-Af Amer) Random Glucose Hemoglobin A1c 5.8 Calcium Total Bilirubin AST ALT Alkaline Phosphatase Troponin I Total Protein Albumin Globulin Albumin/Globulin Ratio Procalcitonin < 0.05 L Arterial Blood Potassium Ur L.pneumophila Ag Negative 01/30/18 01/30/18 01/30/18 18:39 19:20 21:00 WBC RBC Hgb Hct MCV MCH MCHC RDW Plt Count MPV Gran % Lymph % (Auto) Yates % (Auto) Eos % (Auto) Baso % (Auto) Gran # Lymph # (Auto) Yates # (Auto) Eos # (Auto) Baso # (Auto) PT INR APTT pCO2 pO2 HCO3 ABG pH ABG Total CO2 ABG O2 Saturation ABG Base Excess ABG Potassium Glucose Lactate FiO2 Pressure Support CPAP Sodium Potassium Chloride Carbon Dioxide Anion Gap BUN Creatinine Est GFR ( Amer) Est GFR (Non-Af Amer) Random Glucose Hemoglobin A1c Calcium Total Bilirubin AST ALT Alkaline Phosphatase Troponin I 1.39 H* D Total Protein Albumin Globulin Albumin/Globulin Ratio Procalcitonin < 0.05 L Arterial Blood Potassium Ur L.pneumophila Ag Negative 01/31/18 01/31/18 01/31/18 01:00 05:20 05:20 WBC 13.8 H D RBC 4.00 Hgb 11.6 L Hct 36.3 MCV 90.8 D MCH 29.0 MCHC 32.0 RDW 13.3 Plt Count 285 MPV 9.8 Gran % 84.3 H Lymph % (Auto) 9.4 L Yates % (Auto) 6.3 H Eos % (Auto) 0.0 L Baso % (Auto) 0.0 Gran # 11.64 H Lymph # (Auto) 1.3 Yates # (Auto) 0.9 H Eos # (Auto) 0.0 Baso # (Auto) 0.00 PT INR APTT pCO2 pO2 HCO3 ABG pH ABG Total CO2 ABG O2 Saturation ABG Base Excess ABG Potassium Glucose Lactate FiO2 Pressure Support CPAP Sodium 139 Potassium 4.0 Chloride 110 H Carbon Dioxide 21 Anion Gap 13 BUN 15 Creatinine 0.8 Est GFR ( Amer) > 60 Est GFR (Non-Af Amer) > 60 Random Glucose 123 H Hemoglobin A1c Calcium 8.0 L Total Bilirubin 0.5 AST 44 H D ALT 26 Alkaline Phosphatase 59 Troponin I 1.76 H* D 1.20 H* D Total Protein 6.9 Albumin 3.8 Globulin 3.2 Albumin/Globulin Ratio 1.2 Procalcitonin Arterial Blood Potassium Ur L.pneumophila Ag 01/31/18 01/31/18 01/31/18 05:20 09:02 12:00 WBC RBC Hgb Hct MCV MCH MCHC RDW Plt Count MPV Gran % Lymph % (Auto) Yates % (Auto) Eos % (Auto) Baso % (Auto) Gran # Lymph # (Auto) Yates # (Auto) Eos # (Auto) Baso # (Auto) PT 11.9 INR 1.03 APTT 25.4 172.4 H* pCO2 38 pO2 239.0 H HCO3 19.6 L ABG pH 7.32 L ABG Total CO2 20.8 L ABG O2 Saturation 100.2 H ABG Base Excess -6.0 L ABG Potassium 3.8 Glucose 125 H Lactate 0.7 FiO2 50.0 Pressure Support 5 CPAP 5 Sodium 136.0 Potassium Chloride 110.0 H Carbon Dioxide Anion Gap BUN Creatinine Est GFR ( Amer) Est GFR (Non-Af Amer) Random Glucose Hemoglobin A1c Calcium Total Bilirubin AST ALT Alkaline Phosphatase Troponin I Total Protein Albumin Globulin Albumin/Globulin Ratio Procalcitonin Arterial Blood Potassium 3.8 Ur L.pneumophila Ag Attending/Attestation - Attestation I have personally seen and examined this patient.: Yes I have fully participated in the care of the patient.: Yes I have reviewed all pertinent clinical information: Yes Notes (Text): 01/31/18 17:45 I agree with the assessment and plan. Will follow brain MRI
--- NOTE | 2018-01-31 13:46 | MRI ---
Date of service: 01/31/2018 PROCEDURE: MRI BRAIN WITHOUT CONTRAST HISTORY: AMS COMPARISON: Noncontrast head CT from 01/30/2018. TECHNIQUE: Multiplanar, multisequence MR images of the brain were obtained without intravenous contrast enhancement. FINDINGS: HEMORRHAGE: None DWI: No evidence of an acute or early subacute infarction. BRAIN PARENCHYMA: There are mild chronic microangiopathic changes. There is no mass, mass effect or abnormal extra-axial fluid collection. There is no territorial infarction. The midline sagittal structures are normal. VENTRICLES: There is mild age-related global parenchymal volume loss and proportionate enlargement of the ventricles and cortical sulci. CRANIUM: There is normal bone marrow signal pattern. ORBITS: Grossly unremarkable. PARANASAL SINUSES/MASTOIDS: There is moderate mucosal thickening in the right posterior ethmoid air cell and sphenoid sinus. The remaining included paranasal sinuses are clear. Moderate bilateral mastoid effusions. VASCULAR SYSTEM: There are normal signal voids in the larger intracranial arteries. OTHER FINDINGS: None. IMPRESSION: No acute intracranial abnormality. Mild age-related global parenchymal volume loss. Moderate bilateral mastoid effusions.
--- NOTE | 2018-01-31 15:36 | CP.PCM.PN ---
<Marlon Miguel - Last Filed: 01/31/18 15:47> Subjective - Date & Time of Evaluation Date of Evaluation: 01/31/18 Time of Evaluation: 07:30 - Subjective Subjective: Hospitalist progress note: Pt seen and examined at bedside. NO acute events overnight. Patient is intubated and sedation weaned off. Patient now being weaned off vent. She is opening her eyes anbd following command. 12 Point ROS limited 2/2 intubation Objective - Vital Signs/Intake and Output Vital Signs (last 24 hours): Temp Pulse Resp BP Pulse Ox 96.3 F L 122 H 22 96/64 L 94 L 01/31/18 14:00 01/31/18 14:00 01/31/18 14:00 01/31/18 14:00 01/31/18 14:00 Intake and Output: 01/31/18 01/31/18 06:59 18:59 Intake Total 1802 60 Output Total 600 Balance 1202 60 - Medications Medications: Current Medications Albuterol/Ipratropium (Duoneb 3 Mg/0.5 Mg (3 Ml) Ud) 3 ml IH [id number] PRN PRN Reason: Wheezing Last Admin: 01/31/18 13:16 Dose: 3 ml Aspirin (Ecotrin) 81 mg PO DAILY [facility] Last Admin: 01/31/18 15:26 Dose: 81 mg Clopidogrel Bisulfate (Plavix) 75 mg PO 0700 [facility] Sodium Chloride (Sodium Chloride 0.9%) 1,000 mls @ 100 mls/hr IV .Q10H [facility] Last Admin: 01/30/18 13:43 Dose: 100 mls/hr Piperacillin Sod/Tazobactam Sod (Zosyn 3.375 In Ns 100ml) 100 mls @ 25 mls/hr IVPB Q8 [facility]; Protocol Stop: 02/06/18 22:01 Last Admin: 01/31/18 14:03 Dose: 25 mls/hr Acetaminophen (Ofirmev) 1,000 mg in 100 mls @ 400 mls/hr IVPB Q6H PRN PRN Reason: Temperature Stop: 02/01/18 23:21 Last Admin: 01/30/18 23:38 Dose: 400 mls/hr Heparin Sodium/Sodium Chloride (Heparin 46582 Units/250ml 1/2 Normal Saline) 25,000 units in 250 mls @ 8.4 mls/hr IV .Q24H [facility]; Protocol Stop: 02/01/18 07:00 Last Titration: 01/31/18 14:00 Dose: 9 units/kg/hr, 6.3 mls/hr Vancomycin HCl (Vancomycin 1gm) 1 gm in 250 mls @ 167 mls/hr IVPB Q12H [facility]; Protocol Last Admin: 01/31/18 11:51 Dose: 167 mls/hr Methylprednisolone (Solu-Medrol) 40 mg IVP DAILY [facility] Last Admin: 01/31/18 11:26 Dose: 40 mg Metoprolol Tartrate (Lopressor) 12.5 mg PO BID [facility] Last Admin: 01/31/18 12:05 Dose: Not Given - Labs Labs: 01/31/18 05:20 01/31/18 05:20 PT 11.9 SECONDS (9.4-12.5) 01/31/18 05:20 INR 1.03 01/31/18 05:20 APTT 172.4 Seconds (25.1-36.5) H* 01/31/18 12:00 - Constitutional Appears: No Acute Distress - Head Exam Head Exam: ATRAUMATIC, NORMOCEPHALIC - Eye Exam Eye Exam: EOMI Pupil Exam: NORMAL ACCOMODATION - ENT Exam ENT Exam: Mucous Membranes Moist - Respiratory Exam Respiratory Exam: Clear to Ausculation Bilateral. absent: Rales, Wheezes - Cardiovascular Exam Cardiovascular Exam: REGULAR RHYTHM, +S1, +S2 - GI/Abdominal Exam GI & Abdominal Exam: Soft. absent: Distended, Tenderness <Bryon Hernandez - Last Filed: 01/31/18 18:31> Objective - Vital Signs/Intake and Output Vital Signs (last 24 hours): Temp Pulse Resp BP Pulse Ox 96.6 F L 85 29 H 105/63 100 01/31/18 16:20 01/31/18 17:10 01/31/18 17:10 01/31/18 17:00 01/31/18 17:10 Intake and Output: 01/31/18 01/31/18 06:59 18:59 Intake Total 1802 60 Output Total 600 Balance 1202 60 - Medications Medications: Current Medications Albuterol/Ipratropium (Duoneb 3 Mg/0.5 Mg (3 Ml) Ud) 3 ml IH [id number] PRN PRN Reason: Wheezing Last Admin: 01/31/18 13:16 Dose: 3 ml Aspirin (Ecotrin) 81 mg PO DAILY [facility] Last Admin: 01/31/18 15:26 Dose: 81 mg Clopidogrel Bisulfate (Plavix) 75 mg PO 0700 [facility] Famotidine (Pepcid) 40 mg PO HS [facility] Sodium Chloride (Sodium Chloride 0.9%) 1,000 mls @ 100 mls/hr IV .Q10H [facility] Last Admin: 01/30/18 13:43 Dose: 100 mls/hr Piperacillin Sod/Tazobactam Sod (Zosyn 3.375 In Ns 100ml) 100 mls @ 25 mls/hr IVPB Q8 [facility]; Protocol Stop: 02/06/18 22:01 Last Admin: 01/31/18 14:03 Dose: 25 mls/hr Acetaminophen (Ofirmev) 1,000 mg in 100 mls @ 400 mls/hr IVPB Q6H PRN PRN Reason: Temperature Stop: 02/01/18 23:21 Last Admin: 01/30/18 23:38 Dose: 400 mls/hr Heparin Sodium/Sodium Chloride (Heparin 44031 Units/250ml 1/2 Normal Saline) 25,000 units in 250 mls @ 8.4 mls/hr IV .Q24H [facility]; Protocol Stop: 02/01/18 07:00 Last Titration: 01/31/18 14:00 Dose: 9 units/kg/hr, 6.3 mls/hr Vancomycin HCl (Vancomycin 1gm) 1 gm in 250 mls @ 167 mls/hr IVPB Q12H [facility]; Protocol Last Admin: 01/31/18 11:51 Dose: 167 mls/hr Methylprednisolone (Solu-Medrol) 40 mg IVP DAILY [facility] Last Admin: 01/31/18 11:26 Dose: 40 mg Metoprolol Tartrate (Lopressor) 12.5 mg PO BID [facility] Last Admin: 01/31/18 12:05 Dose: Not Given - Labs Labs: 01/31/18 05:20 01/31/18 05:20 PT 11.9 SECONDS (9.4-12.5) 01/31/18 05:20 INR 1.03 01/31/18 05:20 APTT 172.4 Seconds (25.1-36.5) H* 01/31/18 12:00 Attending/Attestation - Attestation I have personally seen and examined this patient.: Yes I have fully participated in the care of the patient.: Yes I have reviewed all pertinent clinical information, including history, physical exam and plan: Yes
--- NOTE | 2018-01-31 15:46 | RAD ---
Date of service: 01/31/2018 HISTORY: Intubated COMPARISON: 02/07/2018 FINDINGS: The endotracheal tube terminates in the mid trachea. The left IJV line terminates in the SVC. LUNGS: The lungs are well inflated and clear. PLEURA: No pleural effusions or pneumothorax. CARDIOVASCULAR: The heart is normal in size. No aortic atherosclerotic calcification present. OSSEOUS STRUCTURES: Within normal limits for the patient's age. VISUALIZED UPPER ABDOMEN: Normal. OTHER FINDINGS: None. IMPRESSION: No active pulmonary disease. Endotracheal tube terminates the mid trachea. Left IJV line terminates in the SVC.
--- NOTE | 2018-01-31 16:42 | CARD ---
APPROVED REPORT Date of service: 01/31/2018 EXAM: Two-dimensional and M-mode echocardiogram with Doppler and color Doppler. INDICATION Non STEMI 2D DIMENSIONS Left Atrium (2D)3.3 (1.6-4.0cm)IVSd0.8 (0.7-1.1cm) LVDd3.9 (3.9-5.9cm)PWd0.9 (0.7-1.1cm) LVDs3.1 (2.5-4.0cm)FS (%) 21.6 % LVEF (%)44.4 (>50%) M-Mode DIMENSIONS Aortic Root3.20 (2.2-3.7cm)Aortic Cusp Exc.1.50 (1.5-2.0cm) Aortic Valve AoV Peak Rqfeoubz380.0cm/Homa Peak GR.11mmHg Mitral Valve E/A ratio0.0 TDI E/Lateral E'0.0E/Medial E'0.0 Tricuspid Valve TR Peak [id number]/sRAP [id number] Peak Gr.21mmHg [id number] LEFT VENTRICLE The left ventricle is normal size. There is normal left ventricular wall thickness. The systolic function is mildly to moderately impaired. Septal hypokinesis RIGHT VENTRICLE The right ventricle is normal size. There is normal right ventricular wall thickness. The right ventricular systolic function is normal. ATRIA The left atrium size is normal. The right atrium size is normal. AORTIC VALVE The aortic valve is not well visualized. No aortic regurgitation is present. There is no aortic valvular stenosis. MITRAL VALVE The mitral valve is normal in structure. Mitral regurgitation is trace. There is no mitral valve stenosis. TRICUSPID VALVE The tricuspid valve is normal in structure. There is trace tricuspid regurgitation. GREAT VESSELS The aortic root is normal in size. The IVC collapses <50% with inspiration. <Conclusion> The left ventricle is normal size. There is normal left ventricular wall thickness. The systolic function is mildly to moderately impaired.
--- NOTE | 2018-01-31 18:05 | CON ---
DATE: 01/31/2018 The patient is seen early this morning in 129, bed 3. The patient was intubated at that time, on a ventilator, and had a temperature of 100.4. Infectious Disease consultation requested. HISTORY OF PRESENT ILLNESS: This is a 67-year-old female with a history of osteoarthritis and history of asthma, hyperlipidemia, who was brought in by the EMS to the emergency room, and the patient was found on the bottom of the steps of her building by the mailman, who has unwitnessed this questionable fall, duration of time is not so clear, and the patient is intubated on a ventilator, has a cervical collar on, and Infectious Disease consultation requested because of a fever. REVIEW OF SYSTEMS: Reveals a 14-point review of systems performed. PAST MEDICAL HISTORY: Significant for osteoarthritis, hyperlipidemia, asthma. PAST SURGICAL HISTORY: Significant for a D and C. ALLERGIES: THE PATIENTS HAS NO KNOWN ALLERGIES. MEDICATIONS AT HOME: Reveals the patient to be on vitamins and vitamin D. PHYSICAL EXAMINATION: GENERAL: She is in bed, intubated on a ventilator. VITAL SIGNS: A temperature of 100.4, a heart rate of 91-108, respiratory rate on a vent, and blood pressure is 100/60. HEENT: Examination of HEENT, has a cervical collar on. ET tube in place. NECK: Supple. LUNGS: Decreased breath sounds. HEART: Normal S1, S2. ABDOMEN: Soft, nontender. LABORATORY EXAMINATION: Reveals a white count of 10,200, this morning it is 13,800, hemoglobin of 12, platelets of 357, 56% lymphocytosis, and 38% granulocytosis, with coagulation is reviewed, INR of 1.0. Blood gases are noted. The patient with lactic acid 7.9. Chemistries, the troponins are elevated x3, and the patient has a normal BNP and a normal procalcitonin. Creatinine is 0.8. Urinalysis is unremarkable. Toxicology is negative. Serology, a urine for Legionella antigen is negative. Microbiology is noted. Chest x-ray is reported to be negative. CAT scan of the head is reported to be negative. Cervical spine x-ray is reviewed. ASSESSMENT AND PLAN: A 67-year-old female, who is here with acute hypercapnic respiratory failure, intubated on a ventilator, now reported to be extubated this morning with metabolic acidosis secondary to lactic acidosis, most likely secondary to non-ST elevation myocardial infarction. We will empirically continue the vancomycin and Zosyn, pending blood cultures, urine cultures, sputum cultures, and initial workup results. If all negative, we will discontinue the vancomycin and Zosyn, most likely all, secondary to non-ST elevation myocardial infarction. We will follow with you. Lexx Quintero MD
--- NOTE | 2018-01-31 21:38 | CARD ---
APPROVED REPORT Date of service: 01/30/2018 EKG Measurement Heart [id number] <Conclusion> Sinus rhythm with occasional premature ventricular complexes Nonspecific T wave abnormality Prolonged QT Abnormal ECG
[2018-01-31] MEDS: Sodium Chloride 0.9% 1,000 ML IV SCH (23:20)
--- NOTE | 2018-01-31 23:33 | CON ---
DATE: 01/31/2018 CARDIOLOGY CONSULTATION HISTORY: The patient is a 67-year-old woman, who was found unconscious at the bottom of the stairs. She was intubated in the field and brought into the ICU. Subsequently, the patient has been extubated. PAST MEDICAL HISTORY: The patient's past medical history is very scanty, other than a history of asthma or bronchospasm in the past. She was noted to be short of breath in the morning before of her event. No previous cardiac issues notable in the past. According to her daughter, the patient did not have a complaint of chest discomfort. The rest of her history is not very accurate, nor available. Physical Examination: GENERAL: The patient has been extubated, but is lethargic. VITAL SIGNS: Blood pressure is 99/66, the heart rate is in the 70s, normal sinus rhythm. NECK: Negative JVD. LUNGS: Bilateral rhonchi. HEART: Reveals S1, S2. EXTREMITIES: Without edema. LABORATORY DATA: Laboratories include an EKG that shows normal sinus rhythm with nonspecific ST-T changes. Troponins are elevated x3. BUN and creatinine are unremarkable. The glucose is 123. CT scan shows no intracranial bleed. IMPRESSION: 1. Questionable syncope. 2. History of bronchospasm. 3. High probability for coronary artery disease. 4. Non-ST elevation myocardial infarction. PLAN: Given these findings, I will obtain an echocardiogram today. If the echocardiogram does not reveal any new information, we will proceed to cardiac catheterization in the morning to rule out significant coronary artery disease. Ted Gaitan MD
[2018-02-01] MEDS: Piperacillin/Tazobact 3.375 gm 100 ML IVPB SCH (05:11)
[2018-02-01] MEDS ORDERED: Pantoprazole 40 mg EC Tab PO SCH (06:00)
[2018-02-01] MEDS: Heparin25000 units/250ml 1/2NS 25,000 UNITS/250 ML BAG IV SCH (07:04)
[2018-02-01] MEDS: Albuterol-Ipratrop 3 mg / 0.5 (3 ml) UD IH PRN (07:13)
[2018-02-01 07:35] LABS: ALB/GLOB RATIO 1.1 (1.1-1.8); ALBUMIN 3.5 g/dL (3.0-4.8); ALT/SGPT 25 U/L (7-56); AST/SGOT 36 U/L (14-36); BLOOD UREA NITROGEN 19 mg/dL (7-21); CALCIUM 8.2 mg/dL (8.4-10.5); GFR NON-AFRICAN AMERICAN > 60
[2018-02-01 08:05] LABS: GRAN # 11.54 (1.4-6.5); GRAN % 74.8 % (50.0-68.0); LYMPH # 2.7 (1.2-3.4); LYMPH % 17.2 % (22.0-35.0); MEAN CELL VOLUME 92.9 fl (80.0-105.0); MEAN CORPUSCULAR HEMOGLOBIN 29.1 pg (25.0-35.0); MEAN CORPUSCULAR HGB CONC 31.3 g/dl (31.0-37.0); MEAN PLATELET VOLUME 9.7 fl (7.0-11.0); MONO # 1.2 (0.1-0.6); RBC 3.78 10^6/uL (3.5-6.1); RED CELL DISTRIBUTION WIDTH 14.2 % (11.5-14.5); WHITE BLOOD COUNT 15.4 10^3/uL (4.5-11.0)
[2018-02-01] MEDS: MethylPREDNISolone 40 mg Vial IVP SCH (09:20)
--- NOTE | 2018-02-01 10:00 | CP.PCM.PN ---
<Papa Arthur - Last Filed: 02/01/18 12:25> Subjective - Date & Time of Evaluation Date of Evaluation: 02/01/18 Time of Evaluation: 07:40 - Subjective Subjective: Papa Arthur PGY-1 Progress Note for Hospitalist Service Patient seen and evaluated at bedside. No acute events reported overnight. Patient daughter at bedside. Patient extubated and speaking without issue. Patient reports residual sore throat but no cough or hemoptysis. Denies current chest pain, palpitations, family history of cardiac issues, current shortness of breath. Patient to be sent for cardiac catheterization today. Objective - Vital Signs/Intake and Output Vital Signs (last 24 hours): Temp Pulse Resp BP Pulse Ox 97.4 F L 78 18 118/79 96 02/01/18 08:00 02/01/18 09:44 02/01/18 05:50 02/01/18 05:00 02/01/18 05:50 Intake and Output: 02/01/18 02/01/18 06:59 18:59 Intake Total 1500 Balance 1500 - Medications Medications: Current Medications Albuterol/Ipratropium (Duoneb 3 Mg/0.5 Mg (3 Ml) Ud) 3 ml IH [id number] PRN PRN Reason: Wheezing Last Admin: 02/01/18 07:13 Dose: 3 ml Aspirin (Ecotrin) 81 mg PO DAILY [facility] Last Admin: 02/01/18 09:20 Dose: 81 mg Clopidogrel Bisulfate (Plavix) 75 mg PO 0700 [facility] Last Admin: 02/01/18 09:20 Dose: 75 mg Famotidine (Pepcid) 40 mg PO HS [facility] Last Admin: 01/31/18 23:00 Dose: 40 mg Sodium Chloride (Sodium Chloride 0.9%) 1,000 mls @ 100 mls/hr IV .Q10H [facility] Last Admin: 01/31/18 23:20 Dose: 100 mls/hr Piperacillin Sod/Tazobactam Sod (Zosyn 3.375 In Ns 100ml) 100 mls @ 25 mls/hr IVPB Q8 [facility]; Protocol Stop: 02/06/18 22:01 Last Admin: 02/01/18 05:11 Dose: 25 mls/hr Acetaminophen (Ofirmev) 1,000 mg in 100 mls @ 400 mls/hr IVPB Q6H PRN PRN Reason: Temperature Stop: 02/01/18 23:21 Last Admin: 01/30/18 23:38 Dose: 400 mls/hr Vancomycin HCl (Vancomycin 1gm) 1 gm in 250 mls @ 167 mls/hr IVPB Q12H [facility]; Protocol Last Admin: 01/31/18 23:20 Dose: 167 mls/hr Methylprednisolone (Solu-Medrol) 40 mg IVP DAILY [facility] Last Admin: 02/01/18 09:20 Dose: 40 mg Metoprolol Tartrate (Lopressor) 12.5 mg PO BID [facility] Last Admin: 02/01/18 09:27 Dose: Not Given - Labs Labs: 02/01/18 07:45 02/01/18 05:30 PT 11.9 SECONDS (9.4-12.5) 01/31/18 05:20 INR 1.03 01/31/18 05:20 APTT 29.3 Seconds (25.1-36.5) 02/01/18 08:30 - Additional Findings Additional findings: - Constitutional Appears: No Acute Distress - Head Exam Head Exam: ATRAUMATIC, NORMOCEPHALIC - Eye Exam Eye Exam: EOMI Pupil Exam: NORMAL ACCOMODATION - ENT Exam ENT Exam: Mucous Membranes Moist - Respiratory Exam Respiratory Exam: Extubated. Clear to Ausculation Bilateral. absent: Rales, Wheezes - Cardiovascular Exam Cardiovascular Exam: REGULAR RHYTHM, +S1, +S2. No pedal edema - GI/Abdominal Exam GI & Abdominal Exam: Soft. absent: Distended, Tenderness Assessment and Plan - Assessment and Plan (Free Text) Assessment: 67 F with PMHx of asthma, OA, and HLD presents brought in by EMS to the ED for AMS. Patient with respiratory failure on admission, sent for cardiac cath for likely NSTEMI. AMS: - Extubated yesterday - Elevated lactate 7.9 initially--> now resolved - CT head - neg - MRI of the brain - no acute pathology. Mild parenchymal volume loss, moderate bilateral mastoid effusions - Broad spectrum abx with Vanc 1 g BID & Zosyn q8 discontinued. Continue to watch WBC per ID - F/u Neuro consult recs - F/u ID consult recs - CXR showed no active dx - Cont Solumedrol 40 daily - Duonebs as needed - Vitals q4 - NS@100 cc/hr - Alex removed - urine cx negative, blood cx x2 neg after 24 hours - F/u ICU recs Elevated troponin - likely NSTEMI - 0.06--> 1.39--> 1.76--> 1.2 - Cardiology consulted - cardiac cath today refused by patient, f/u appt made for with Dr. Quiros - Echo shows LVEF 44.4% , normal LV thickness, systolic function mildly impaired. - Heparin ggt put on hold in advance of cath - Cont asa and plavix Lopressor GI/DVT - Pepcid and Hepain ggt, on hold Patient seen, case reviewed and plan approved by Dr. Hernandez. Papa Arthur, PGY-1 <Bryon Hernandez - Last Filed: 02/01/18 17:16> Objective - Vital Signs/Intake and Output Vital Signs (last 24 hours): Temp Pulse Resp BP Pulse Ox 98.4 F 110 H 20 121/73 91 L 02/01/18 12:00 02/01/18 14:00 02/01/18 13:10 02/01/18 12:00 02/01/18 13:10 Intake and Output: 02/01/18 02/01/18 06:59 18:59 Intake Total 1500 Balance 1500 - Medications Medications: Current Medications Albuterol/Ipratropium (Duoneb 3 Mg/0.5 Mg (3 Ml) Ud) 3 ml IH [id number] PRN PRN Reason: Wheezing Last Admin: 02/01/18 07:13 Dose: 3 ml Aspirin (Ecotrin) 81 mg PO DAILY [facility] Last Admin: 02/01/18 09:20 Dose: 81 mg Atorvastatin Calcium (Lipitor) 80 mg PO DIN [facility] Famotidine (Pepcid) 40 mg PO HS [facility] Last Admin: 01/31/18 23:00 Dose: 40 mg Methylprednisolone (Solu-Medrol) 40 mg IVP DAILY [facility] Last Admin: 02/01/18 09:20 Dose: 40 mg Metoprolol Tartrate (Lopressor) 25 mg PO BID [facility] - Labs Labs: 02/01/18 07:45 02/01/18 05:30 PT 11.9 SECONDS (9.4-12.5) 01/31/18 05:20 INR 1.03 01/31/18 05:20 APTT 29.3 Seconds (25.1-36.5) 02/01/18 08:30 Attending/Attestation - Attestation I have personally seen and examined this patient.: Yes I have fully participated in the care of the patient.: Yes I have reviewed all pertinent clinical information, including history, physical exam and plan: Yes
--- NOTE | 2018-02-01 11:20 | CP.CCUPN ---
<Phil Prajapati - Last Filed: 02/01/18 12:23> CCU Subjective - Physician Review Subjective (Free Text): Phil Prajapati DO, PGY1. ICU progress note for Dr Montalvo Patient seen and examined at bedside. She is AAOx3 in NAD. No acute events overnight. She reports throat irritation s/p extubation. She denied CP, SOB, palpitations, N/V, diaphoresis. She refused cardiac cath today and prefer to reschedule it as an elective procedure. CCU Objective - Vital Signs / Intake & Output Vital Signs (Last 4 hours): Vital Signs Temp Pulse 02/01/18 09:44 78 02/01/18 09:27 78 02/01/18 08:00 97.4 F L Intake and Output (Last 8hrs): Intake & Output 01/31/18 02/01/18 02/01/18 22:59 06:59 14:59 Intake Total 1698 1500 Output Total 1175 Balance 523 1500 Intake: IV 1448 1200 0.9 1000 Left Forearm 98 1200 Right Antecubital 0 abx 350 Oral 250 300 Output: Urine 1175 Urethral (Donaldson) 1175 Stool 0 Other: # Voids Urine, Voided 1 # Bowel Movements 1 - Physical Exam Head: Positive for: Atraumatic, Normocephalic Pupils: Positive for: PERRL Extroacular Muscles: Positive for: EOMI Mouth: Positive for: Moist Mucous Membranes Pharnyx: Positive for: Other Neck: Positive for: Normal Range of Motion, Trachea Midline. Negative for: Meningeal Signs, MIDLINE TENDERNESS, Paraspinal Tenderness, JVD, Lymphadenopathy Respiratory/Chest: Positive for: Clear to Auscultation, Good Air Exchange. Negative for: Respiratory Distress, Rales, Rhonchi Cardiovascular: Positive for: Regular Rate and Rhythm, Normal S1, S2, Peripheal Pulses Present. Negative for: Murmurs, Rub, Gallop Abdomen: Positive for: Normal Bowel Sounds. Negative for: Tenderness, Distention, Peritoneal Signs, Rebound Back: Positive for: Normal Inspection Upper Extremity: Positive for: Normal Inspection, NORMAL PULSES. Negative for: Cyanosis, Edema Lower Extremity: Positive for: Normal Inspection. Negative for: Edema Neurological: Positive for: GCS=15, CN II-XII Intact, Speech Normal, Motor Func Grossly Intact Skin: Positive for: Warm, Dry, Normal Color. Negative for: Rashes Psychiatric: Positive for: Alert, Oriented x 3, Normal Insight, Normal Concentration - Medications Active Medications: Active Medications Generic Name Dose Route Start Last Admin Trade Name Freq PRN Reason Stop Dose Admin Albuterol/Ipratropium 3 ml 01/30/18 14:55 02/01/18 07:13 Duoneb 3 Mg/0.5 Mg (3 Ml) Ud IH 3 ml [id number] PRN Administration Wheezing Aspirin 81 mg 01/31/18 14:15 02/01/18 09:20 Ecotrin PO 81 mg DAILY HERMES Administration Famotidine 40 mg 01/31/18 22:00 01/31/18 23:00 Pepcid PO 40 mg HS HERMES Administration Sodium Chloride 1,000 mls @ 100 mls/hr 01/30/18 12:15 01/31/18 23:20 Sodium Chloride 0.9% IV 100 mls/hr .Q10H HERMES Administration Piperacillin Sod/Tazobactam Sod 100 mls @ 25 mls/hr 01/30/18 22:00 02/01/18 05:11 Zosyn 3.375 In Ns 100ml IVPB 02/06/18 22:01 25 mls/hr Q8 HERMES Administration Protocol Acetaminophen 1,000 mg in 100 mls @ 400 mls/hr 01/30/18 23:20 01/30/18 23:38 Ofirmev IVPB 02/01/18 23:21 400 mls/hr Q6H PRN Administration Temperature Vancomycin HCl 1 gm in 250 mls @ 167 mls/hr 01/31/18 11:15 01/31/18 23:20 Vancomycin 1gm IVPB 167 mls/hr Q12H HERMES Administration Protocol Methylprednisolone 40 mg 01/31/18 10:30 02/01/18 09:20 Solu-Medrol IVP 40 mg DAILY HERMES Administration Metoprolol Tartrate 25 mg 02/01/18 10:42 Lopressor PO BID HERMES - Patient Studies Lab Studies: Microbiology Studies 01/30/18 12:40 Blood Culture - Preliminary Blood NO GROWTH AFTER 24 HOURS 01/30/18 13:00 Urine Culture - Final Urine No Growth (<1,000 CFU/ML) 01/30/18 12:10 Blood Culture - Preliminary Blood NO GROWTH AFTER 24 HOURS Lab Studies 02/01/18 02/01/1818 Range/Units 08:30 07:45 07:39 WBC 15.4 H (4.5-11.0) 10^3/uL RBC 3.78 (3.5-6.1) 10^6/uL Hgb 11.0 L (12.0-16.0) g/dL Hct 35.1 L (36.0-48.0) % MCV 92.9 (80.0-105.0) fl MCH 29.1 (25.0-35.0) pg MCHC 31.3 (31.0-37.0) g/dl RDW 14.2 (11.5-14.5) % Plt Count 243 (120.0-450.0) 10^3/uL MPV 9.7 (7.0-11.0) fl Gran % 74.8 H (50.0-68.0) % Lymph % (Auto) 17.2 L (22.0-35.0) % Humphreys % (Auto) 8.0 H (1.0-6.0) % Eos % (Auto) 0.0 L (1.5-5.0) % Baso % (Auto) 0.0 (0.0-3.0) % Gran # 11.54 H (1.4-6.5) Lymph # (Auto) 2.7 (1.2-3.4) Humphreys # (Auto) 1.2 H (0.1-0.6) Eos # (Auto) 0.0 (0.0-0.7) Baso # (Auto) 0.00 (0.0-2.0) K/mm3 APTT 29.3 (25.1-36.5) Seconds Sodium (132-148) mmol/L Potassium (3.6-5.0) mmol/L Chloride (98-107) mmol/L Carbon Dioxide (21-33) mmol/L Anion Gap (10-20) BUN (7-21) mg/dL Creatinine (0.7-1.2) mg/dl Est GFR ( Amer) Est GFR (Non-Af Amer) POC Glucose (mg/dL) 95 (65-110) mg/dL Random Glucose (70-110) mg/dL Calcium (8.4-10.5) mg/dL Total Bilirubin (0.2-1.3) mg/dL AST (14-36) U/L ALT (7-56) U/L Alkaline Phosphatase (38-126) U/L Total Protein (5.8-8.3) g/dL Albumin (3.0-4.8) g/dL Globulin gm/dL Albumin/Globulin Ratio (1.1-1.8) Procalcitonin (0.19-0.49) NG/ML Ur L.pneumophila Ag (NEGATIVE) 02/01/18 02/01/18 01/31/18 Range/Units 05:30 02:00 21:58 WBC (4.5-11.0) 10^3/uL RBC (3.5-6.1) 10^6/uL Hgb (12.0-16.0) g/dL Hct (36.0-48.0) % MCV (80.0-105.0) fl MCH (25.0-35.0) pg MCHC (31.0-37.0) g/dl RDW (11.5-14.5) % Plt Count (120.0-450.0) 10^3/uL MPV (7.0-11.0) fl Gran % (50.0-68.0) % Lymph % (Auto) (22.0-35.0) % Humphreys % (Auto) (1.0-6.0) % Eos % (Auto) (1.5-5.0) % Baso % (Auto) (0.0-3.0) % Gran # (1.4-6.5) Lymph # (Auto) (1.2-3.4) Humphreys # (Auto) (0.1-0.6) Eos # (Auto) (0.0-0.7) Baso # (Auto) (0.0-2.0) K/mm3 APTT 54.4 H (25.1-36.5) Seconds Sodium 141 (132-148) mmol/L Potassium 4.5 (3.6-5.0) mmol/L Chloride 114 H (98-107) mmol/L Carbon Dioxide 21 (21-33) mmol/L Anion Gap 10 (10-20) BUN 19 (7-21) mg/dL Creatinine 0.8 (0.7-1.2) mg/dl Est GFR ( Amer) > 60 Est GFR (Non-Af Amer) > 60 POC Glucose (mg/dL) 116 H (65-110) mg/dL Random Glucose 97 (70-110) mg/dL Calcium 8.2 L (8.4-10.5) mg/dL Total Bilirubin 0.3 (0.2-1.3) mg/dL AST 36 (14-36) U/L ALT 25 (7-56) U/L Alkaline Phosphatase 60 (38-126) U/L Total Protein 6.7 (5.8-8.3) g/dL Albumin 3.5 (3.0-4.8) g/dL Globulin 3.2 gm/dL Albumin/Globulin Ratio 1.1 (1.1-1.8) Procalcitonin (0.19-0.49) NG/ML Ur L.pneumophila Ag (NEGATIVE) 01/31/18 01/31/18 01/31/18 Range/Units 20:10 16:13 12:00 WBC (4.5-11.0) 10^3/uL RBC (3.5-6.1) 10^6/uL Hgb (12.0-16.0) g/dL Hct (36.0-48.0) % MCV (80.0-105.0) fl MCH (25.0-35.0) pg MCHC (31.0-37.0) g/dl RDW (11.5-14.5) % Plt Count (120.0-450.0) 10^3/uL MPV (7.0-11.0) fl Gran % (50.0-68.0) % Lymph % (Auto) (22.0-35.0) % Humphreys % (Auto) (1.0-6.0) % Eos % (Auto) (1.5-5.0) % Baso % (Auto) (0.0-3.0) % Gran # (1.4-6.5) Lymph # (Auto) (1.2-3.4) Humphreys # (Auto) (0.1-0.6) Eos # (Auto) (0.0-0.7) Baso # (Auto) (0.0-2.0) K/mm3 APTT 81.5 H 172.4 H* (25.1-36.5) Seconds Sodium (132-148) mmol/L Potassium (3.6-5.0) mmol/L Chloride (98-107) mmol/L Carbon Dioxide (21-33) mmol/L Anion Gap (10-20) BUN (7-21) mg/dL Creatinine (0.7-1.2) mg/dl Est GFR ( Amer) Est GFR (Non-Af Amer) POC Glucose (mg/dL) 111 H (65-110) mg/dL Random Glucose (70-110) mg/dL Calcium (8.4-10.5) mg/dL Total Bilirubin (0.2-1.3) mg/dL AST (14-36) U/L ALT (7-56) U/L Alkaline Phosphatase (38-126) U/L Total Protein (5.8-8.3) g/dL Albumin (3.0-4.8) g/dL Globulin gm/dL Albumin/Globulin Ratio (1.1-1.8) Procalcitonin (0.19-0.49) NG/ML Ur L.pneumophila Ag (NEGATIVE) 01/31/18 01/31/18 01/30/18 Range/Units 11:24 08:13 22:52 WBC (4.5-11.0) 10^3/uL RBC (3.5-6.1) 10^6/uL Hgb (12.0-16.0) g/dL Hct (36.0-48.0) % MCV (80.0-105.0) fl MCH (25.0-35.0) pg MCHC (31.0-37.0) g/dl RDW (11.5-14.5) % Plt Count (120.0-450.0) 10^3/uL MPV (7.0-11.0) fl Gran % (50.0-68.0) % Lymph % (Auto) (22.0-35.0) % Humphreys % (Auto) (1.0-6.0) % Eos % (Auto) (1.5-5.0) % Baso % (Auto) (0.0-3.0) % Gran # (1.4-6.5) Lymph # (Auto) (1.2-3.4) Humphreys # (Auto) (0.1-0.6) Eos # (Auto) (0.0-0.7) Baso # (Auto) (0.0-2.0) K/mm3 APTT (25.1-36.5) Seconds Sodium (132-148) mmol/L Potassium (3.6-5.0) mmol/L Chloride (98-107) mmol/L Carbon Dioxide (21-33) mmol/L Anion Gap (10-20) BUN (7-21) mg/dL Creatinine (0.7-1.2) mg/dl Est GFR ( Amer) Est GFR (Non-Af Amer) POC Glucose (mg/dL) 97 98 132 H (65-110) mg/dL Random Glucose (70-110) mg/dL Calcium (8.4-10.5) mg/dL Total Bilirubin (0.2-1.3) mg/dL AST (14-36) U/L ALT (7-56) U/L Alkaline Phosphatase (38-126) U/L Total Protein (5.8-8.3) g/dL Albumin (3.0-4.8) g/dL Globulin gm/dL Albumin/Globulin Ratio (1.1-1.8) Procalcitonin (0.19-0.49) NG/ML Ur L.pneumophila Ag (NEGATIVE) 01/30/18 01/30/18 Range/Units 21:00 18:39 WBC (4.5-11.0) 10^3/uL RBC (3.5-6.1) 10^6/uL Hgb (12.0-16.0) g/dL Hct (36.0-48.0) % MCV (80.0-105.0) fl MCH (25.0-35.0) pg MCHC (31.0-37.0) g/dl RDW (11.5-14.5) % Plt Count (120.0-450.0) 10^3/uL MPV (7.0-11.0) fl Gran % (50.0-68.0) % Lymph % (Auto) (22.0-35.0) % Humphreys % (Auto) (1.0-6.0) % Eos % (Auto) (1.5-5.0) % Baso % (Auto) (0.0-3.0) % Gran # (1.4-6.5) Lymph # (Auto) (1.2-3.4) Humphreys # (Auto) (0.1-0.6) Eos # (Auto) (0.0-0.7) Baso # (Auto) (0.0-2.0) K/mm3 APTT (25.1-36.5) Seconds Sodium (132-148) mmol/L Potassium (3.6-5.0) mmol/L Chloride (98-107) mmol/L Carbon Dioxide (21-33) mmol/L Anion Gap (10-20) BUN (7-21) mg/dL Creatinine (0.7-1.2) mg/dl Est GFR ( Amer) Est GFR (Non-Af Amer) POC Glucose (mg/dL) (65-110) mg/dL Random Glucose (70-110) mg/dL Calcium (8.4-10.5) mg/dL Total Bilirubin (0.2-1.3) mg/dL AST (14-36) U/L ALT (7-56) U/L Alkaline Phosphatase (38-126) U/L Total Protein (5.8-8.3) g/dL Albumin (3.0-4.8) g/dL Globulin gm/dL Albumin/Globulin Ratio (1.1-1.8) Procalcitonin < 0.05 L (0.19-0.49) NG/ML Ur L.pneumophila Ag Negative (NEGATIVE) Laboratory Results - last 24 hr 01/30/18 01/30/18 01/30/18 18:39 21:00 22:52 WBC RBC Hgb Hct MCV MCH MCHC RDW Plt Count MPV Gran % Lymph % (Auto) Humphreys % (Auto) Eos % (Auto) Baso % (Auto) Gran # Lymph # (Auto) Humphreys # (Auto) Eos # (Auto) Baso # (Auto) APTT Sodium Potassium Chloride Carbon Dioxide Anion Gap BUN Creatinine Est GFR ( Amer) Est GFR (Non-Af Amer) POC Glucose (mg/dL) 132 H Random Glucose Calcium Total Bilirubin AST ALT Alkaline Phosphatase Total Protein Albumin Globulin Albumin/Globulin Ratio Procalcitonin < 0.05 L Ur L.pneumophila Ag Negative 01/31/18 01/31/18 01/31/18 08:13 11:24 12:00 WBC RBC Hgb Hct MCV MCH MCHC RDW Plt Count MPV Gran % Lymph % (Auto) Humphreys % (Auto) Eos % (Auto) Baso % (Auto) Gran # Lymph # (Auto) Humphreys # (Auto) Eos # (Auto) Baso # (Auto) APTT 172.4 H* Sodium Potassium Chloride Carbon Dioxide Anion Gap BUN Creatinine Est GFR ( Amer) Est GFR (Non-Af Amer) POC Glucose (mg/dL) 98 97 Random Glucose Calcium Total Bilirubin AST ALT Alkaline Phosphatase Total Protein Albumin Globulin Albumin/Globulin Ratio Procalcitonin Ur L.pneumophila Ag 01/31/18 01/31/18 01/31/18 16:13 20:10 21:58 WBC RBC Hgb Hct MCV MCH MCHC RDW Plt Count MPV Gran % Lymph % (Auto) Humphreys % (Auto) Eos % (Auto) Baso % (Auto) Gran # Lymph # (Auto) Humphreys # (Auto) Eos # (Auto) Baso # (Auto) APTT 81.5 H Sodium Potassium Chloride Carbon Dioxide Anion Gap BUN Creatinine Est GFR ( Amer) Est GFR (Non-Af Amer) POC Glucose (mg/dL) 111 H 116 H Random Glucose Calcium Total Bilirubin AST ALT Alkaline Phosphatase Total Protein Albumin Globulin Albumin/Globulin Ratio Procalcitonin Ur L.pneumophila Ag 02/01/18 02/01/18 02/01/18 02:00 05:30 07:39 WBC RBC Hgb Hct MCV MCH MCHC RDW Plt Count MPV Gran % Lymph % (Auto) Humphreys % (Auto) Eos % (Auto) Baso % (Auto) Gran # Lymph # (Auto) Humphreys # (Auto) Eos # (Auto) Baso # (Auto) APTT 54.4 H Sodium 141 Potassium 4.5 Chloride 114 H Carbon Dioxide 21 Anion Gap 10 BUN 19 Creatinine 0.8 Est GFR ( Amer) > 60 Est GFR (Non-Af Amer) > 60 POC Glucose (mg/dL) 95 Random Glucose 97 Calcium 8.2 L Total Bilirubin 0.3 AST 36 ALT 25 Alkaline Phosphatase 60 Total Protein 6.7 Albumin 3.5 Globulin 3.2 Albumin/Globulin Ratio 1.1 Procalcitonin Ur L.pneumophila Ag 02/01/18 02/01/18 07:45 08:30 WBC 15.4 H RBC 3.78 Hgb 11.0 L Hct 35.1 L MCV 92.9 MCH 29.1 MCHC 31.3 RDW 14.2 Plt Count 243 MPV 9.7 Gran % 74.8 H Lymph % (Auto) 17.2 L Humphreys % (Auto) 8.0 H Eos % (Auto) 0.0 L Baso % (Auto) 0.0 Gran # 11.54 H Lymph # (Auto) 2.7 Humphreys # (Auto) 1.2 H Eos # (Auto) 0.0 Baso # (Auto) 0.00 APTT 29.3 Sodium Potassium Chloride Carbon Dioxide Anion Gap BUN Creatinine Est GFR ( Amer) Est GFR (Non-Af Amer) POC Glucose (mg/dL) Random Glucose Calcium Total Bilirubin AST ALT Alkaline Phosphatase Total Protein Albumin Globulin Albumin/Globulin Ratio Procalcitonin Ur L.pneumophila Ag Radiology Impressions: Radiology Impressions Chest X-Ray 01/31/18 05:00 IMPRESSION: No active pulmonary disease. Endotracheal tube terminates the mid trachea. Left IJV line terminates in the SVC. Brain MRI 01/31/18 07:49 IMPRESSION: No acute intracranial abnormality. Mild age-related global parenchymal volume loss. Moderate bilateral mastoid effusions. Fingerstick Blood Sugar Results: 95 Critical Care Progress Note - Nutrition Nutrition: Nutrition Category Date Time Status Heart Healthy Diet [DIET] Diets 02/01/18 Lunch Ordered Assessment/Plan - Assessment and Plan (Free Text) Assessment: 67 y/o female with PMHx of asthma, OA, and HLD admitted to ICU for AMS and respiratory failure requiring incubation and elevated troponins. Now extubated, refused cardiac cath. doing well, hemodynamically stable, no SOB or CP Plan: Neuro: -AAOx3 -CT head: no ICH -MRI brain: no acute pathology -CT cervical spine:acute displaced fracture or subluxation CVS: -elevated trop 1.39/1.76/1.2 likely NSTEMI -no h/o HTN, premature CAD. No cardiac symptoms -Echo:EF 44.4% , normal LV thickness, systolic function mildly impaired -continue lopressor, asa, plavix -Heparin ggt -refused cardiac cath. will go for elective cath later -maintain MAP >65 Resp: -h/o asthma -continue solu-medrol 40 mg daily -duoneb, supp O2 prn -maintain SaO2 >92% -CXR: no active disease -flu a/b negative GI -diet advanced to heart health diet Renal: -maintain euvolemia -continue IVF NS@150cc/hr ID -leukocytosis 15.4 -afebrile -blood cx negative x2 -urine cx negative -procal ordered -UA: negative for UTI -continue abx: vancomycin, zosyn -ID following, Dr Sparks Heme: -H/H stable -APTT 29.3 Prophylaxis: -DVT ppx: SCD -GI ppx: pepcid Heart healthy diet Dispo: Patient is afebrile, hemodynamically stable. She will be transfered to [facility]. f/u trop Case reviewed and plan discussed with attending Dr Selvin Prajapati, DO PGY1 <Candace Montalvo - Last Filed: 02/01/18 13:44> CCU Objective - Vital Signs / Intake & Output Intake and Output (Last 8hrs): Intake & Output 01/31/18 02/01/18 02/01/18 22:59 06:59 14:59 Intake Total 1698 1500 Output Total 1175 Balance 523 1500 Intake: IV 1448 1200 0.9 1000 Left Forearm 98 1200 Right Antecubital 0 abx 350 Oral 250 300 Output: Urine 1175 Urethral (Donaldson) 1175 Stool 0 Other: # Voids Urine, Voided 1 # Bowel Movements 1 - Medications Active Medications: Active Medications Generic Name Dose Route Start Last Admin Trade Name Freq PRN Reason Stop Dose Admin Albuterol/Ipratropium 3 ml 01/30/18 14:55 02/01/18 07:13 Duoneb 3 Mg/0.5 Mg (3 Ml) Ud IH 3 ml [id number] PRN Administration Wheezing Aspirin 81 mg 01/31/18 14:15 02/01/18 09:20 Ecotrin PO 81 mg DAILY HERMES Administration Atorvastatin Calcium 80 mg 02/01/18 17:00 Lipitor PO DIN HERMES Famotidine 40 mg 01/31/18 22:00 01/31/18 23:00 Pepcid PO 40 mg HS HERMES Administration Methylprednisolone 40 mg 01/31/18 10:30 02/01/18 09:20 Solu-Medrol IVP 40 mg DAILY HERMES Administration Metoprolol Tartrate 25 mg 02/01/18 10:42 Lopressor PO BID HERMES - Patient Studies Lab Studies: Microbiology Studies 01/30/18 12:40 Blood Culture - Preliminary Blood NO GROWTH AFTER 48 HOURS 01/30/18 12:10 Blood Culture - Preliminary Blood NO GROWTH AFTER 48 HOURS 01/30/18 13:00 Urine Culture - Final Urine No Growth (<1,000 CFU/ML) Lab Studies 02/01/18 02/01/18 02/01/18 Range/Units 11:14 08:30 07:45 WBC 15.4 H (4.5-11.0) 10^3/uL RBC 3.78 (3.5-6.1) 10^6/uL Hgb 11.0 L (12.0-16.0) g/dL Hct 35.1 L (36.0-48.0) % MCV 92.9 (80.0-105.0) fl MCH 29.1 (25.0-35.0) pg MCHC 31.3 (31.0-37.0) g/dl RDW 14.2 (11.5-14.5) % Plt Count 243 (120.0-450.0) 10^3/uL MPV 9.7 (7.0-11.0) fl Gran % 74.8 H (50.0-68.0) % Lymph % (Auto) 17.2 L (22.0-35.0) % Humphreys % (Auto) 8.0 H (1.0-6.0) % Eos % (Auto) 0.0 L (1.5-5.0) % Baso % (Auto) 0.0 (0.0-3.0) % Gran # 11.54 H (1.4-6.5) Lymph # (Auto) 2.7 (1.2-3.4) Humphreys # (Auto) 1.2 H (0.1-0.6) Eos # (Auto) 0.0 (0.0-0.7) Baso # (Auto) 0.00 (0.0-2.0) K/mm3 APTT 29.3 (25.1-36.5) Seconds Sodium (132-148) mmol/L Potassium (3.6-5.0) mmol/L Chloride (98-107) mmol/L Carbon Dioxide (21-33) mmol/L Anion Gap (10-20) BUN (7-21) mg/dL Creatinine (0.7-1.2) mg/dl Est GFR ( Amer) Est GFR (Non-Af Amer) POC Glucose (mg/dL) 126 H (65-110) mg/dL Random Glucose (70-110) mg/dL Calcium (8.4-10.5) mg/dL Total Bilirubin (0.2-1.3) mg/dL AST (14-36) U/L ALT (7-56) U/L Alkaline Phosphatase (38-126) U/L Total Protein (5.8-8.3) g/dL Albumin (3.0-4.8) g/dL Globulin gm/dL Albumin/Globulin Ratio (1.1-1.8) Procalcitonin (0.19-0.49) NG/ML 02/01/18 02/01/18 02/01/18 Range/Units 07:39 05:30 02:00 WBC (4.5-11.0) 10^3/uL RBC (3.5-6.1) 10^6/uL Hgb (12.0-16.0) g/dL Hct (36.0-48.0) % MCV (80.0-105.0) fl MCH (25.0-35.0) pg MCHC (31.0-37.0) g/dl RDW (11.5-14.5) % Plt Count (120.0-450.0) 10^3/uL MPV (7.0-11.0) fl Gran % (50.0-68.0) % Lymph % (Auto) (22.0-35.0) % Humphreys % (Auto) (1.0-6.0) % Eos % (Auto) (1.5-5.0) % Baso % (Auto) (0.0-3.0) % Gran # (1.4-6.5) Lymph # (Auto) (1.2-3.4) Humphreys # (Auto) (0.1-0.6) Eos # (Auto) (0.0-0.7) Baso # (Auto) (0.0-2.0) K/mm3 APTT 54.4 H (25.1-36.5) Seconds Sodium 141 (132-148) mmol/L Potassium 4.5 (3.6-5.0) mmol/L Chloride 114 H (98-107) mmol/L Carbon Dioxide 21 (21-33) mmol/L Anion Gap 10 (10-20) BUN 19 (7-21) mg/dL Creatinine 0.8 (0.7-1.2) mg/dl Est GFR ( Amer) > 60 Est GFR (Non-Af Amer) > 60 POC Glucose (mg/dL) 95 (65-110) mg/dL Random Glucose 97 (70-110) mg/dL Calcium 8.2 L (8.4-10.5) mg/dL Total Bilirubin 0.3 (0.2-1.3) mg/dL AST 36 (14-36) U/L ALT 25 (7-56) U/L Alkaline Phosphatase 60 (38-126) U/L Total Protein 6.7 (5.8-8.3) g/dL Albumin 3.5 (3.0-4.8) g/dL Globulin 3.2 gm/dL Albumin/Globulin Ratio 1.1 (1.1-1.8) Procalcitonin (0.19-0.49) NG/ML 01/31/18 01/31/18 01/31/18 Range/Units 21:58 20:10 16:13 WBC (4.5-11.0) 10^3/uL RBC (3.5-6.1) 10^6/uL Hgb (12.0-16.0) g/dL Hct (36.0-48.0) % MCV (80.0-105.0) fl MCH (25.0-35.0) pg MCHC (31.0-37.0) g/dl RDW (11.5-14.5) % Plt Count (120.0-450.0) 10^3/uL MPV (7.0-11.0) fl Gran % (50.0-68.0) % Lymph % (Auto) (22.0-35.0) % Humphreys % (Auto) (1.0-6.0) % Eos % (Auto) (1.5-5.0) % Baso % (Auto) (0.0-3.0) % Gran # (1.4-6.5) Lymph # (Auto) (1.2-3.4) Humphreys # (Auto) (0.1-0.6) Eos # (Auto) (0.0-0.7) Baso # (Auto) (0.0-2.0) K/mm3 APTT 81.5 H (25.1-36.5) Seconds Sodium (132-148) mmol/L Potassium (3.6-5.0) mmol/L Chloride (98-107) mmol/L Carbon Dioxide (21-33) mmol/L Anion Gap (10-20) BUN (7-21) mg/dL Creatinine (0.7-1.2) mg/dl Est GFR ( Amer) Est GFR (Non-Af Amer) POC Glucose (mg/dL) 116 H 111 H (65-110) mg/dL Random Glucose (70-110) mg/dL Calcium (8.4-10.5) mg/dL Total Bilirubin (0.2-1.3) mg/dL AST (14-36) U/L ALT (7-56) U/L Alkaline Phosphatase (38-126) U/L Total Protein (5.8-8.3) g/dL Albumin (3.0-4.8) g/dL Globulin gm/dL Albumin/Globulin Ratio (1.1-1.8) Procalcitonin (0.19-0.49) NG/ML 01/31/18 01/31/18 01/30/18 Range/Units 11:24 08:13 22:52 WBC (4.5-11.0) 10^3/uL RBC (3.5-6.1) 10^6/uL Hgb (12.0-16.0) g/dL Hct (36.0-48.0) % MCV (80.0-105.0) fl MCH (25.0-35.0) pg MCHC (31.0-37.0) g/dl RDW (11.5-14.5) % Plt Count (120.0-450.0) 10^3/uL MPV (7.0-11.0) fl Gran % (50.0-68.0) % Lymph % (Auto) (22.0-35.0) % Humphreys % (Auto) (1.0-6.0) % Eos % (Auto) (1.5-5.0) % Baso % (Auto) (0.0-3.0) % Gran # (1.4-6.5) Lymph # (Auto) (1.2-3.4) Humphreys # (Auto) (0.1-0.6) Eos # (Auto) (0.0-0.7) Baso # (Auto) (0.0-2.0) K/mm3 APTT (25.1-36.5) Seconds Sodium (132-148) mmol/L Potassium (3.6-5.0) mmol/L Chloride (98-107) mmol/L Carbon Dioxide (21-33) mmol/L Anion Gap (10-20) BUN (7-21) mg/dL Creatinine (0.7-1.2) mg/dl Est GFR ( Amer) Est GFR (Non-Af Amer) POC Glucose (mg/dL) 97 98 132 H (65-110) mg/dL Random Glucose (70-110) mg/dL Calcium (8.4-10.5) mg/dL Total Bilirubin (0.2-1.3) mg/dL AST (14-36) U/L ALT (7-56) U/L Alkaline Phosphatase (38-126) U/L Total Protein (5.8-8.3) g/dL Albumin (3.0-4.8) g/dL Globulin gm/dL Albumin/Globulin Ratio (1.1-1.8) Procalcitonin (0.19-0.49) NG/ML 01/30/18 Range/Units 21:00 WBC (4.5-11.0) 10^3/uL RBC (3.5-6.1) 10^6/uL Hgb (12.0-16.0) g/dL Hct (36.0-48.0) % MCV (80.0-105.0) fl MCH (25.0-35.0) pg MCHC (31.0-37.0) g/dl RDW (11.5-14.5) % Plt Count (120.0-450.0) 10^3/uL MPV (7.0-11.0) fl Gran % (50.0-68.0) % Lymph % (Auto) (22.0-35.0) % Humphreys % (Auto) (1.0-6.0) % Eos % (Auto) (1.5-5.0) % Baso % (Auto) (0.0-3.0) % Gran # (1.4-6.5) Lymph # (Auto) (1.2-3.4) Humphreys # (Auto) (0.1-0.6) Eos # (Auto) (0.0-0.7) Baso # (Auto) (0.0-2.0) K/mm3 APTT (25.1-36.5) Seconds Sodium (132-148) mmol/L Potassium (3.6-5.0) mmol/L Chloride (98-107) mmol/L Carbon Dioxide (21-33) mmol/L Anion Gap (10-20) BUN (7-21) mg/dL Creatinine (0.7-1.2) mg/dl Est GFR ( Amer) Est GFR (Non-Af Amer) POC Glucose (mg/dL) (65-110) mg/dL Random Glucose (70-110) mg/dL Calcium (8.4-10.5) mg/dL Total Bilirubin (0.2-1.3) mg/dL AST (14-36) U/L ALT (7-56) U/L Alkaline Phosphatase (38-126) U/L Total Protein (5.8-8.3) g/dL Albumin (3.0-4.8) g/dL Globulin gm/dL Albumin/Globulin Ratio (1.1-1.8) Procalcitonin < 0.05 L (0.19-0.49) NG/ML Laboratory Results - last 24 hr 01/30/18 01/30/18 01/31/18 21:00 22:52 08:13 WBC RBC Hgb Hct MCV MCH MCHC RDW Plt Count MPV Gran % Lymph % (Auto) Humphreys % (Auto) Eos % (Auto) Baso % (Auto) Gran # Lymph # (Auto) Humphreys # (Auto) Eos # (Auto) Baso # (Auto) APTT Sodium Potassium Chloride Carbon Dioxide Anion Gap BUN Creatinine Est GFR ( Amer) Est GFR (Non-Af Amer) POC Glucose (mg/dL) 132 H 98 Random Glucose Calcium Total Bilirubin AST ALT Alkaline Phosphatase Total Protein Albumin Globulin Albumin/Globulin Ratio Procalcitonin < 0.05 L 01/31/18 01/31/18 01/31/18 11:24 16:13 20:10 WBC RBC Hgb Hct MCV MCH MCHC RDW Plt Count MPV Gran % Lymph % (Auto) Humphreys % (Auto) Eos % (Auto) Baso % (Auto) Gran # Lymph # (Auto) Humphreys # (Auto) Eos # (Auto) Baso # (Auto) APTT 81.5 H Sodium Potassium Chloride Carbon Dioxide Anion Gap BUN Creatinine Est GFR ( Amer) Est GFR (Non-Af Amer) POC Glucose (mg/dL) 97 111 H Random Glucose Calcium Total Bilirubin AST ALT Alkaline Phosphatase Total Protein Albumin Globulin Albumin/Globulin Ratio Procalcitonin 01/31/18 02/01/18 02/01/18 21:58 02:00 05:30 WBC RBC Hgb Hct MCV MCH MCHC RDW Plt Count MPV Gran % Lymph % (Auto) Humphreys % (Auto) Eos % (Auto) Baso % (Auto) Gran # Lymph # (Auto) Humphreys # (Auto) Eos # (Auto) Baso # (Auto) APTT 54.4 H Sodium 141 Potassium 4.5 Chloride 114 H Carbon Dioxide 21 Anion Gap 10 BUN 19 Creatinine 0.8 Est GFR ( Amer) > 60 Est GFR (Non-Af Amer) > 60 POC Glucose (mg/dL) 116 H Random Glucose 97 Calcium 8.2 L Total Bilirubin 0.3 AST 36 ALT 25 Alkaline Phosphatase 60 Total Protein 6.7 Albumin 3.5 Globulin 3.2 Albumin/Globulin Ratio 1.1 Procalcitonin 02/01/18 02/01/18 02/01/18 07:39 07:45 08:30 WBC 15.4 H RBC 3.78 Hgb 11.0 L Hct 35.1 L MCV 92.9 MCH 29.1 MCHC 31.3 RDW 14.2 Plt Count 243 MPV 9.7 Gran % 74.8 H Lymph % (Auto) 17.2 L Humphreys % (Auto) 8.0 H Eos % (Auto) 0.0 L Baso % (Auto) 0.0 Gran # 11.54 H Lymph # (Auto) 2.7 Humphreys # (Auto) 1.2 H Eos # (Auto) 0.0 Baso # (Auto) 0.00 APTT 29.3 Sodium Potassium Chloride Carbon Dioxide Anion Gap BUN Creatinine Est GFR ( Amer) Est GFR (Non-Af Amer) POC Glucose (mg/dL) 95 Random Glucose Calcium Total Bilirubin AST ALT Alkaline Phosphatase Total Protein Albumin Globulin Albumin/Globulin Ratio Procalcitonin 02/01/18 11:14 WBC RBC Hgb Hct MCV MCH MCHC RDW Plt Count MPV Gran % Lymph % (Auto) Humphreys % (Auto) Eos % (Auto) Baso % (Auto) Gran # Lymph # (Auto) Humphreys # (Auto) Eos # (Auto) Baso # (Auto) APTT Sodium Potassium Chloride Carbon Dioxide Anion Gap BUN Creatinine Est GFR ( Amer) Est GFR (Non-Af Amer) POC Glucose (mg/dL) 126 H Random Glucose Calcium Total Bilirubin AST ALT Alkaline Phosphatase Total Protein Albumin Globulin Albumin/Globulin Ratio Procalcitonin Radiology Impressions: Radiology Impressions Chest X-Ray 01/31/18 05:00 IMPRESSION: No active pulmonary disease. Endotracheal tube terminates the mid trachea. Left IJV line terminates in the SVC. Brain MRI 01/31/18 07:49 IMPRESSION: No acute intracranial abnormality. Mild age-related global parenchymal volume loss. Moderate bilateral mastoid effusions. Critical Care Progress Note - Nutrition Nutrition: Nutrition Category Date Time Status Heart Healthy Diet [DIET] Diets 02/01/18 Lunch Active Addendum Addendum: 02/01/18 13:44 ICU Attending Addendum Patient seen and examined. Case reviewed on round with housestaff. Agree with resident note above with the following additions/exceptions 67F found unresponsve outside her home, intubated for airway support currently in the MICU. Extubated yeseterday doing well from a pulm status. CT Spine was neg and no pain on neck exam. Cleared c-collar for removal. TNI elevated, on heparin drip, given ASA cardio planning for cath today, f/u post-cath for asthma, cont steroids and duonebs for now d/c donaldson d.c abx given neg blood and urine cultues., procal <0.05 and cxr not suggestive of pna, no signs of infection at this time Candace Montalvo MD Pulmonary Critical Care Attending
--- NOTE | 2018-02-01 12:09 | CP.PCM.PN ---
Subjective - Date & Time of Evaluation Date of Evaluation: 02/01/18 Time of Evaluation: 11:20 - Subjective Subjective: Afebrile, comfortable, no SOB at rest, no diarrhea, no chest pain. Objective - Vital Signs/Intake and Output Vital Signs (last 24 hours): Temp Pulse Resp BP Pulse Ox 97.7 F 76 18 118/79 96 02/01/18 04:00 02/01/18 06:08 02/01/18 05:50 02/01/18 05:00 02/01/18 05:50 Intake and Output: 01/31/18 02/01/18 18:59 06:59 Intake Total 1758 1500 Output Total 1175 Balance 583 1500 - Medications Medications: Current Medications Albuterol/Ipratropium (Duoneb 3 Mg/0.5 Mg (3 Ml) Ud) 3 ml IH [id number] PRN PRN Reason: Wheezing Last Admin: 01/31/18 13:16 Dose: 3 ml Aspirin (Ecotrin) 81 mg PO DAILY [facility] Last Admin: 01/31/18 15:26 Dose: 81 mg Clopidogrel Bisulfate (Plavix) 75 mg PO 0700 [facility] Famotidine (Pepcid) 40 mg PO HS [facility] Last Admin: 01/31/18 23:00 Dose: 40 mg Sodium Chloride (Sodium Chloride 0.9%) 1,000 mls @ 100 mls/hr IV .Q10H [facility] Last Admin: 01/31/18 23:20 Dose: 100 mls/hr Piperacillin Sod/Tazobactam Sod (Zosyn 3.375 In Ns 100ml) 100 mls @ 25 mls/hr IVPB Q8 [facility]; Protocol Stop: 02/06/18 22:01 Last Admin: 02/01/18 05:11 Dose: 25 mls/hr Acetaminophen (Ofirmev) 1,000 mg in 100 mls @ 400 mls/hr IVPB Q6H PRN PRN Reason: Temperature Stop: 02/01/18 23:21 Last Admin: 01/30/18 23:38 Dose: 400 mls/hr Heparin Sodium/Sodium Chloride (Heparin 89823 Units/250ml 1/2 Normal Saline) 25,000 units in 250 mls @ 8.4 mls/hr IV .Q24H [facility]; Protocol Stop: 02/01/18 07:00 Last Titration: 01/31/18 20:53 Dose: 7 units/kg/hr, 4.9 mls/hr Vancomycin HCl (Vancomycin 1gm) 1 gm in 250 mls @ 167 mls/hr IVPB Q12H [facility]; Protocol Last Admin: 01/31/18 23:20 Dose: 167 mls/hr Methylprednisolone (Solu-Medrol) 40 mg IVP DAILY [facility] Last Admin: 01/31/18 11:26 Dose: 40 mg Metoprolol Tartrate (Lopressor) 12.5 mg PO BID [facility] Last Admin: 01/31/18 12:05 Dose: Not Given - Labs Labs: 01/31/18 05:20 01/31/18 05:20 PT 11.9 SECONDS (9.4-12.5) 01/31/18 05:20 INR 1.03 01/31/18 05:20 APTT 54.4 Seconds (25.1-36.5) H 02/01/18 02:00 - Constitutional Appears: Non-toxic, No Acute Distress, Chronically Ill - Head Exam Head Exam: NORMAL INSPECTION - Respiratory Exam Respiratory Exam: Decreased Breath Sounds - Cardiovascular Exam Cardiovascular Exam: +S1, +S2 - GI/Abdominal Exam GI & Abdominal Exam: absent: Tenderness Assessment and Plan - Assessment and Plan (Free Text) Plan: Assessment SIRS with metabolic acidosis probably due to acute NSTEMI R/O sepsis but so far no source identified dyslipidemia asthma osteoarthritis Plan on Vancomycin and Zosyn; PCT are negative; cultures are negative will d/c antibiotics, trend WBC count and observe
--- NOTE | 2018-02-01 12:57 | PN ---
DATE: 02/01/2018 SUBJECTIVE: After extensive discussion with the patient and family yesterday, cardiac catheterization was planned for today. The patient was brought to the hatchery laborer. The patient is awake and alert. She refused the procedure. After discussions with daughter both the patient as well as the daughter refused catheterization. They understand the risk of larger myocardial infarction and possible . The patient was brought back to the CCU. Given reluctant to have a procedure done, the only option would be empirically treat the patient medically. Would continue on aspirin and statin therapy and p.o. beta-blockers. We will discontinue the Plavix. Ted Gaitan MD
--- NOTE | 2018-02-01 13:50 | CP.PCM.PN ---
<Chente Mendes - Last Filed: 02/01/18 13:56> Subjective - Date & Time of Evaluation Date of Evaluation: 02/01/18 Time of Evaluation: 13:42 - Subjective Subjective: Neurology Progress Note for Dr. Marley Patient seen and examined at bedside. No acute overnight events. Patient is going for cath today due to NSTEMI. Objective - Vital Signs/Intake and Output Vital Signs (last 24 hours): Temp Pulse Resp BP Pulse Ox 97.4 F L 78 18 118/79 96 02/01/18 08:00 02/01/18 09:44 02/01/18 05:50 02/01/18 05:00 02/01/18 05:50 Intake and Output: 02/01/18 02/01/18 06:59 18:59 Intake Total 1500 Balance 1500 - Medications Medications: Current Medications Albuterol/Ipratropium (Duoneb 3 Mg/0.5 Mg (3 Ml) Ud) 3 ml IH [id number] PRN PRN Reason: Wheezing Last Admin: 02/01/18 07:13 Dose: 3 ml Aspirin (Ecotrin) 81 mg PO DAILY [facility] Last Admin: 02/01/18 09:20 Dose: 81 mg Atorvastatin Calcium (Lipitor) 80 mg PO DIN [facility] Famotidine (Pepcid) 40 mg PO HS [facility] Last Admin: 01/31/18 23:00 Dose: 40 mg Methylprednisolone (Solu-Medrol) 40 mg IVP DAILY [facility] Last Admin: 02/01/18 09:20 Dose: 40 mg Metoprolol Tartrate (Lopressor) 25 mg PO BID [facility] - Labs Labs: 02/01/18 07:45 02/01/18 05:30 PT 11.9 SECONDS (9.4-12.5) 01/31/18 05:20 INR 1.03 01/31/18 05:20 APTT 29.3 Seconds (25.1-36.5) 02/01/18 08:30 - Constitutional Appears: No Acute Distress - Head Exam Head Exam: NORMAL INSPECTION - Eye Exam Eye Exam: Normal appearance Pupil Exam: NORMAL ACCOMODATION - ENT Exam ENT Exam: Mucous Membranes Moist - Respiratory Exam Respiratory Exam: Clear to Ausculation Bilateral - Cardiovascular Exam Cardiovascular Exam: REGULAR RHYTHM - GI/Abdominal Exam GI & Abdominal Exam: Soft, Normal Bowel Sounds - Extremities Exam Extremities Exam: Normal Inspection - Neurological Exam Neurological Exam: Alert, Awake, Oriented x3 - Psychiatric Exam Psychiatric exam: Normal Affect - Skin Skin Exam: Normal Color Assessment and Plan - Assessment and Plan (Free Text) Assessment: 67 yo F with PMH of asthma, OA, and HLD presents to [facility] for respiratory distress. Patient was intubated in the field, now extubated. Neurology was consulted for AMS. MRI is negative. Patient is neurologically stable. At this time we will sign off. Thank you for the consultation. Please reconsult if needed. <Hugo Marley - Last Filed: 02/03/18 13:47> Objective - Vital Signs/Intake and Output Vital Signs (last 24 hours): Temp Pulse Resp BP Pulse Ox 98.2 F 80 18 103/75 97 02/03/18 04:00 02/03/18 11:46 02/03/18 04:00 02/03/18 04:00 02/03/18 04:00 - Medications Medications: Current Medications Albuterol/Ipratropium (Duoneb 3 Mg/0.5 Mg (3 Ml) Ud) 3 ml IH [id number] PRN PRN Reason: Wheezing Last Admin: 02/01/18 07:13 Dose: 3 ml Aspirin (Ecotrin) 81 mg PO DAILY [facility] Last Admin: 02/03/18 10:42 Dose: 81 mg Atorvastatin Calcium (Lipitor) 80 mg PO DIN [facility] Last Admin: 02/02/18 17:39 Dose: 80 mg Famotidine (Pepcid) 40 mg PO HS [facility] Last Admin: 02/02/18 22:31 Dose: 40 mg Heparin Sodium (Porcine) (Heparin) 5,000 units SC Q8 [facility]; Protocol Last Admin: 02/03/18 05:38 Dose: 5,000 units Methylprednisolone (Solu-Medrol) 40 mg IVP DAILY [facility] Last Admin: 02/03/18 10:43 Dose: 40 mg Metoprolol Tartrate (Lopressor) 25 mg PO BID [facility] Last Admin: 02/03/18 10:43 Dose: 25 mg - Labs Labs: 02/03/18 06:00 02/03/18 06:00 PT 11.9 SECONDS (9.4-12.5) 01/31/18 05:20 INR 1.03 01/31/18 05:20 APTT 29.3 Seconds (25.1-36.5) 02/01/18 08:30 Attending/Attestation - Attestation I have personally seen and examined this patient.: Yes I have fully participated in the care of the patient.: Yes I have reviewed all pertinent clinical information, including history, physical exam and plan: Yes Notes (Text): 02/03/18 13:46 I agree with the assessment and plan. No further recommendations from a neurological perspective at this time.
[2018-02-02 06:30] LABS: ALB/GLOB RATIO 1.3 (1.1-1.8); ALBUMIN 3.9 g/dL (3.0-4.8); ALT/SGPT 29 U/L (7-56); AST/SGOT 46 U/L (14-36); BLOOD UREA NITROGEN 20 mg/dL (7-21); GFR NON-AFRICAN AMERICAN > 60
[2018-02-02 06:31] LABS: BASO # 0.02 K/mm3 (0.0-2.0); BASO % 0.1 % (0.0-3.0); EOS % 0.1 % (1.5-5.0); GRAN # 9.89 (1.4-6.5); GRAN % 69.3 % (50.0-68.0); HEMOGLOBIN 11.3 g/dL (12.0-16.0); LYMPH # 3.2 (1.2-3.4); LYMPH % 22.5 % (22.0-35.0); MEAN CELL VOLUME 91.9 fl (80.0-105.0); MEAN CORPUSCULAR HEMOGLOBIN 29.4 pg (25.0-35.0); MEAN PLATELET VOLUME 9.9 fl (7.0-11.0); MONO # 1.2 (0.1-0.6); RBC 3.84 10^6/uL (3.5-6.1); WHITE BLOOD COUNT 14.3 10^3/uL (4.5-11.0)
[2018-02-02] MEDS: MethylPREDNISolone 40 mg Vial IVP SCH (10:23)
--- NOTE | 2018-02-02 11:12 | CP.PCM.PN ---
<Papa Arthur - Last Filed: 02/02/18 11:23> Subjective - Date & Time of Evaluation Date of Evaluation: 02/02/18 Time of Evaluation: 08:00 - Subjective Subjective: Papa Arthur PGY-1 Progress Note for Hospitalist Service Patient seen and evaluated at bedside. No acute events reported overnight. Patient daughter at bedside. Patient s/p extubation and speaking without issue. Denies current chest pain, palpitations, cough, hemoptysis, shortness of breath, nausea, vomiting, dizziness, blurry vision. Objective - Vital Signs/Intake and Output Vital Signs (last 24 hours): Temp Pulse Resp BP Pulse Ox 98 F 92 H 15 106/47 L 99 02/02/18 08:00 02/02/18 10:23 02/02/18 08:00 02/02/18 10:23 02/02/18 00:00 Intake and Output: 02/02/18 02/02/18 06:59 18:59 Intake Total 120 Balance 120 - Medications Medications: Current Medications Albuterol/Ipratropium (Duoneb 3 Mg/0.5 Mg (3 Ml) Ud) 3 ml IH [id number] PRN PRN Reason: Wheezing Last Admin: 02/01/18 07:13 Dose: 3 ml Aspirin (Ecotrin) 81 mg PO DAILY [facility] Last Admin: 02/02/18 10:23 Dose: 81 mg Atorvastatin Calcium (Lipitor) 80 mg PO DIN [facility] Last Admin: 02/01/18 17:45 Dose: 80 mg Famotidine (Pepcid) 40 mg PO HS [facility] Last Admin: 02/01/18 21:22 Dose: 40 mg Methylprednisolone (Solu-Medrol) 40 mg IVP DAILY [facility] Last Admin: 02/02/18 10:23 Dose: 40 mg Metoprolol Tartrate (Lopressor) 25 mg PO BID [facility] Last Admin: 02/02/18 10:23 Dose: 25 mg - Labs Labs: 02/02/18 05:00 02/02/18 05:00 PT 11.9 SECONDS (9.4-12.5) 01/31/18 05:20 INR 1.03 01/31/18 05:20 APTT 29.3 Seconds (25.1-36.5) 02/01/18 08:30 - Additional Findings Additional findings: - Constitutional Appears: No Acute Distress - Head Exam Head Exam: ATRAUMATIC, NORMOCEPHALIC - Eye Exam Eye Exam: EOMI Pupil Exam: NORMAL ACCOMODATION - ENT Exam ENT Exam: Mucous Membranes Moist - Respiratory Exam Respiratory Exam: Extubated. Clear to Ausculation Bilateral. absent: Rales, Wheezes - Cardiovascular Exam Cardiovascular Exam: REGULAR RHYTHM, +S1, +S2. No pedal edema - GI/Abdominal Exam GI & Abdominal Exam: Soft. absent: Distended, Tenderness Assessment and Plan - Assessment and Plan (Free Text) Assessment: 67 F with PMHx of asthma, OA, and HLD presents brought in by EMS to the ED for AMS. Patient with respiratory failure on admission, sent for cardiac cath for likely NSTEMI which patient refused. Patient and daughter were urged to follow up as soon as possible for catheterization to evaluate coronaries, as episode that caused hospitalization may occur again without further workup. Patient and daughter expressed understanding. AMS: - Extubated yesterday - Elevated lactate 7.9 initially--> now resolved - CT head - neg - MRI of the brain - no acute pathology. Mild parenchymal volume loss, moderate bilateral mastoid effusions - Broad spectrum abx with Vanc 1 g BID & Zosyn q8 discontinued. Continue to watch WBC per ID - F/u Neuro consult recs- MRI neg and neuro stable. No further recs at this time - F/u ID consult recs - no ABx needed at this time. Follow WBC, which today is 14.3. Afebrile - CXR showed no active dx - Cont Solumedrol 40 daily - Duonebs as needed - Vitals q4 - tolerating HDD - urine cx negative, blood cx x2 neg after 48 hours - telemetry Elevated troponin - likely NSTEMI - 0.06--> 1.39--> 1.76--> 1.2 - Cardiology consulted - cardiac cath yesterday refused by patient, f/u appt made for with Dr. Quiros. - ASA, Lopressor 25 BID, Lipitor 80 mg but no Plavix per cardio recs - Echo shows LVEF 44.4% , normal LV thickness, systolic function mildly impaired. - Heparin ggt DC'd, Hep SC currently - Cont asa and plavix Lopressor GI/DVT - Pepcid and Heparin SC Patient seen, case reviewed and plan approved by Dr. Finn. Papa Arthur, PGY-1 <Bhargav Finn - Last Filed: 02/02/18 18:52> Objective - Vital Signs/Intake and Output Vital Signs (last 24 hours): Temp Pulse Resp BP Pulse Ox 97.4 F L 86 22 118/65 100 02/02/18 18:40 02/02/18 18:40 02/02/18 18:40 02/02/18 18:40 02/02/18 18:40 Intake and Output: 02/02/18 02/02/18 06:59 18:59 Intake Total 120 520 Output Total 500 Balance 120 20 - Medications Medications: Current Medications Albuterol/Ipratropium (Duoneb 3 Mg/0.5 Mg (3 Ml) Ud) 3 ml IH [id number] PRN PRN Reason: Wheezing Last Admin: 02/01/18 07:13 Dose: 3 ml Aspirin (Ecotrin) 81 mg PO DAILY [facility] Last Admin: 02/02/18 10:23 Dose: 81 mg Atorvastatin Calcium (Lipitor) 80 mg PO DIN [facility] Last Admin: 02/02/18 17:39 Dose: 80 mg Famotidine (Pepcid) 40 mg PO HS [facility] Last Admin: 02/01/18 21:22 Dose: 40 mg Heparin Sodium (Porcine) (Heparin) 5,000 units SC Q8 [facility]; Protocol Last Admin: 02/02/18 14:16 Dose: 5,000 units Methylprednisolone (Solu-Medrol) 40 mg IVP DAILY [facility] Last Admin: 02/02/18 10:23 Dose: 40 mg Metoprolol Tartrate (Lopressor) 25 mg PO BID [facility] Last Admin: 02/02/18 17:39 Dose: 25 mg - Labs Labs: 02/02/18 05:00 02/02/18 05:00 PT 11.9 SECONDS (9.4-12.5) 01/31/18 05:20 INR 1.03 01/31/18 05:20 APTT 29.3 Seconds (25.1-36.5) 02/01/18 08:30 Attending/Attestation - Attestation I have personally seen and examined this patient.: Yes I have fully participated in the care of the patient.: Yes I have reviewed all pertinent clinical information, including history, physical exam and plan: Yes Notes (Text): 02/02/18 18:47 Medical record note made by the resident after discussion with my direction and input after the patient was personally seen and examined by me. I have reviewed the chart and agree that the record accurately reflects by personal performance of the history, physical exam, data review, and medical decision-making, in the course for the patient. I have also personally directed the plan of care. 67 F with PMHx of asthma, OA, and HLD presents brought in by EMS to the ED for AMS.Patient was found to be in hypercapnic Resp Failure and metabolic acidosis, was intubated. Patient was also found ti have NSEMI. Patient is extubated.Acidosis is resolved. Mental status is back to normal. Patient has refused cardiac cath.The issue was discussed in detail with patient and daughter. 02/02/18 18:51
--- NOTE | 2018-02-02 19:59 | CP.PCM.PN ---
Subjective - Date & Time of Evaluation Date of Evaluation: 02/02/18 Time of Evaluation: 08:50 - Subjective Subjective: Afebrile, comfortable. Objective - Vital Signs/Intake and Output Vital Signs (last 24 hours): Temp Pulse Resp BP Pulse Ox 97.4 F L 78 18 118/79 96 02/01/18 08:00 02/01/18 09:44 02/01/18 05:50 02/01/18 05:00 02/01/18 05:50 Intake and Output: 02/01/18 02/01/18 06:59 18:59 Intake Total 1500 Balance 1500 - Medications Medications: Current Medications Albuterol/Ipratropium (Duoneb 3 Mg/0.5 Mg (3 Ml) Ud) 3 ml IH [id number] PRN PRN Reason: Wheezing Last Admin: 02/01/18 07:13 Dose: 3 ml Aspirin (Ecotrin) 81 mg PO DAILY [facility] Last Admin: 02/01/18 09:20 Dose: 81 mg Famotidine (Pepcid) 40 mg PO HS [facility] Last Admin: 01/31/18 23:00 Dose: 40 mg Sodium Chloride (Sodium Chloride 0.9%) 1,000 mls @ 100 mls/hr IV .Q10H [facility] Last Admin: 01/31/18 23:20 Dose: 100 mls/hr Methylprednisolone (Solu-Medrol) 40 mg IVP DAILY [facility] Last Admin: 02/01/18 09:20 Dose: 40 mg Metoprolol Tartrate (Lopressor) 25 mg PO BID [facility] - Labs Labs: 02/01/18 07:45 02/01/18 05:30 PT 11.9 SECONDS (9.4-12.5) 01/31/18 05:20 INR 1.03 01/31/18 05:20 APTT 29.3 Seconds (25.1-36.5) 02/01/18 08:30 - Constitutional Appears: Chronically Ill - Head Exam Head Exam: NORMAL INSPECTION - Respiratory Exam Respiratory Exam: Decreased Breath Sounds - Cardiovascular Exam Cardiovascular Exam: +S1, +S2 - GI/Abdominal Exam GI & Abdominal Exam: Soft. absent: Tenderness Assessment and Plan - Assessment and Plan (Free Text) Plan: Assessment SIRS with metabolic acidosis probably due to acute NSTEMI with no evidence of sepsis dyslipidemia asthma osteoarthritis Plan continue to monitor off antibiotics since she is at risk for nosocomial infect ions
[2018-02-03 00:36] VITALS: RESP 18
[2018-02-03 05:46] VITALS: BP 103/75; TEMP 98.2; O2SAT 97
[2018-02-03 06:16] LABS: BASO # 0.01 K/mm3 (0.0-2.0); BASO % 0.1 % (0.0-3.0); EOS % 0.3 % (1.5-5.0); GRAN # 6.45 (1.4-6.5); HEMOGLOBIN 11.4 g/dL (12.0-16.0); LYMPH # 3.5 (1.2-3.4); LYMPH % 31.6 % (22.0-35.0); MEAN CELL VOLUME 91.6 fl (80.0-105.0); MEAN CORPUSCULAR HGB CONC 31.7 g/dl (31.0-37.0); MEAN PLATELET VOLUME 9.9 fl (7.0-11.0); RBC 3.93 10^6/uL (3.5-6.1); RED CELL DISTRIBUTION WIDTH 13.7 % (11.5-14.5); WHITE BLOOD COUNT 10.9 10^3/uL (4.5-11.0)
[2018-02-03 06:36] LABS: ALB/GLOB RATIO 1.1 (1.1-1.8); ALBUMIN 3.8 g/dL (3.0-4.8); ALT/SGPT 35 U/L (7-56); AST/SGOT 39 U/L (14-36); BLOOD UREA NITROGEN 26 mg/dL (7-21); CALCIUM 8.9 mg/dL (8.4-10.5); GFR NON-AFRICAN AMERICAN > 60
--- NOTE | 2018-02-03 10:34 | CP.PCM.PN ---
Subjective - Date & Time of Evaluation Date of Evaluation: 02/03/18 Time of Evaluation: 08:10 - Subjective Subjective: No fevers, not in distress. Objective - Vital Signs/Intake and Output Vital Signs (last 24 hours): Temp Pulse Resp BP Pulse Ox 97.4 F L 86 22 118/65 100 02/02/18 18:40 02/02/18 18:40 02/02/18 18:40 02/02/18 18:40 02/02/18 18:40 Intake and Output: 02/02/18 02/03/18 18:59 06:59 Intake Total 520 Output Total 500 Balance 20 - Medications Medications: Current Medications Albuterol/Ipratropium (Duoneb 3 Mg/0.5 Mg (3 Ml) Ud) 3 ml IH [id number] PRN PRN Reason: Wheezing Last Admin: 02/01/18 07:13 Dose: 3 ml Aspirin (Ecotrin) 81 mg PO DAILY [facility] Last Admin: 02/02/18 10:23 Dose: 81 mg Atorvastatin Calcium (Lipitor) 80 mg PO DIN [facility] Last Admin: 02/02/18 17:39 Dose: 80 mg Famotidine (Pepcid) 40 mg PO HS [facility] Last Admin: 02/01/18 21:22 Dose: 40 mg Heparin Sodium (Porcine) (Heparin) 5,000 units SC Q8 [facility]; Protocol Last Admin: 02/02/18 14:16 Dose: 5,000 units Methylprednisolone (Solu-Medrol) 40 mg IVP DAILY [facility] Last Admin: 02/02/18 10:23 Dose: 40 mg Metoprolol Tartrate (Lopressor) 25 mg PO BID [facility] Last Admin: 02/02/18 17:39 Dose: 25 mg - Labs Labs: 02/02/18 05:00 02/02/18 05:00 PT 11.9 SECONDS (9.4-12.5) 01/31/18 05:20 INR 1.03 01/31/18 05:20 APTT 29.3 Seconds (25.1-36.5) 02/01/18 08:30 - Constitutional Appears: Chronically Ill - Head Exam Head Exam: NORMAL INSPECTION - Respiratory Exam Respiratory Exam: Decreased Breath Sounds - Cardiovascular Exam Cardiovascular Exam: +S1, +S2 - GI/Abdominal Exam GI & Abdominal Exam: Soft. absent: Tenderness Assessment and Plan - Assessment and Plan (Free Text) Plan: Assessment SIRS with metabolic acidosis probably due to acute NSTEMI with no evidence of sepsis dyslipidemia asthma osteoarthritis Plan continue to monitor off antibiotics since she is at risk for hospital-acquired infections follow up further plans of cardiology
[2018-02-03] MEDS: MethylPREDNISolone 40 mg Vial IVP SCH (10:43)
--- NOTE | 2018-02-03 11:29 | CP.PCM.DIS ---
<Papa Arthur - Last Filed: 02/03/18 11:51> Provider - Provider Date of Admission: 01/30/18 13:00 Attending physician: Josafat Schwab MD Primary care physician: Dr. Rivera Consults: 01/30/18 17:57 Infectious Disease Consult Routine Comment: Consulting Provider: Checo Omer Consulting Physician: Checo Omer Reason for Consult: Sepsis, elecated lactate Neurology Consult Routine Comment: Consulting Provider: Hugo Marley Consulting Physician: Hugo Marley Reason for Consult: AMS 01/30/18 22:14 Inpatient P[employer] Core Measures Referral Routine Comment: Physician Instructions: Reason For Exam: EVALUATION Transition In Care/Readmission Reduction Routine Comment: Physician Instructions: Reason For Exam: EVALUATION 01/30/18 22:15 Patient Advocate Consultation ONCE Comment: Physician Instructions: Reason For Exam: EVALUATION 01/31/18 06:20 Cardiology Consult Routine Comment: intubated 2/2 asthma exacerbation.Hep drip Consulting Provider: Ted Gaitan Consulting Physician: Ted Gaitan Reason for Consult: NSTEMI Time Spent in preparation of Discharge (in minutes): 40 Hospital Course - Lab Results Lab Results: Micro Results 01/30/18 12:40 Blood Blood Culture - Preliminary NO GROWTH AFTER 3 DAYS 01/30/18 12:10 Blood Blood Culture - Preliminary NO GROWTH AFTER 3 DAYS 01/30/18 18:39 Nose MRSA Culture (Admit) - Final MRSA NOT DETECTED 01/30/18 13:00 Urine Urine Culture - Final No Growth (<1,000 CFU/ML) Most Recent Lab Values WBC 10.9 10^3/uL (4.5-11.0) D 02/03/18 06:00 RBC 3.93 10^6/uL (3.5-6.1) 02/03/18 06:00 Hgb 11.4 g/dL (12.0-16.0) L 02/03/18 06:00 Hct 36.0 % (36.0-48.0) 02/03/18 06:00 MCV 91.6 fl (80.0-105.0) 02/03/18 06:00 MCH 29.0 pg (25.0-35.0) 02/03/18 06:00 MCHC 31.7 g/dl (31.0-37.0) 02/03/18 06:00 RDW 13.7 % (11.5-14.5) 02/03/18 06:00 Plt Count 288 10^3/uL (120.0-450.0) 02/03/18 06:00 MPV 9.9 fl (7.0-11.0) 02/03/18 06:00 Gran % 59.0 % (50.0-68.0) 02/03/18 06:00 Lymph % (Auto) 31.6 % (22.0-35.0) 02/03/18 06:00 [place] % (Auto) 9.0 % (1.0-6.0) H 02/03/18 06:00 Eos % (Auto) 0.3 % (1.5-5.0) L 02/03/18 06:00 Baso % (Auto) 0.1 % (0.0-3.0) 02/03/18 06:00 Gran # 6.45 (1.4-6.5) 02/03/18 06:00 Lymph # (Auto) 3.5 (1.2-3.4) H 02/03/18 06:00 [place] # (Auto) 1.0 (0.1-0.6) H 02/03/18 06:00 Eos # (Auto) 0.0 (0.0-0.7) 02/03/18 06:00 Baso # (Auto) 0.01 K/mm3 (0.0-2.0) 02/03/18 06:00 PT 11.9 SECONDS (9.4-12.5) 01/31/18 05:20 INR 1.03 01/31/18 05:20 APTT 29.3 Seconds (25.1-36.5) 02/01/18 08:30 pCO2 38 mm/Hg (35-45) 01/31/18 09:02 pO2 239.0 mm/Hg (80-100) H 01/31/18 09:02 HCO3 19.6 mmol/L (21-28) L 01/31/18 09:02 ABG pH 7.32 (7.35-7.45) L 01/31/18 09:02 ABG Total CO2 20.8 mmol.L (22-28) L 01/31/18 09:02 ABG O2 Saturation 100.2 % (95-98) H 01/31/18 09:02 ABG Base Excess -6.0 mmol/L (-2.0-3.0) L 01/31/18 09:02 ABG Potassium 3.8 mmol/L (3.6-5.2) 01/31/18 09:02 VBG pH 7.31 (7.32-7.43) L 01/30/18 15:36 VBG pCO2 42.0 (40-60) 01/30/18 15:36 VBG HCO3 21.1 mmol/l (21-28) 01/30/18 15:36 VBG Total CO2 22.4 mmol.L (22-28) 01/30/18 15:36 VBG O2 Sat (Calc) 99.0 % (40-65) H 01/30/18 15:36 VBG Base Excess -5.0 mmol/L (0.0-2.0) L 01/30/18 15:36 VBG Potassium 3.8 mmol/L (3.6-5.2) 01/30/18 15:36 Sodium 136.0 mmol/L (132-148) 01/31/18 09:02 Chloride 110.0 mmol/L (98-107) H 01/31/18 09:02 Glucose 125 mg/dl (65-105) H 01/31/18 09:02 Lactate 0.7 mmol/L (0.7-2.1) 01/31/18 09:02 FiO2 50.0 % 01/31/18 09:02 Pressure Support 5 01/31/18 09:02 CPAP 5 01/31/18 09:02 Sodium 140 mmol/L (132-148) 02/03/18 06:00 Potassium 3.7 mmol/L (3.6-5.0) 02/03/18 06:00 Chloride 107 mmol/L (98-107) 02/03/18 06:00 Carbon Dioxide 27 mmol/L (21-33) 02/03/18 06:00 Anion Gap 10 (10-20) 02/03/18 06:00 BUN 26 mg/dL (7-21) H 02/03/18 06:00 Creatinine 0.8 mg/dl (0.7-1.2) 02/03/18 06:00 Est GFR ( Amer) > 60 02/03/18 06:00 Est GFR (Non-Af Amer) > 60 02/03/18 06:00 POC Glucose (mg/dL) 126 mg/dL (65-110) H 02/01/18 11:14 Random Glucose 97 mg/dL (70-110) 02/03/18 06:00 Hemoglobin A1c 5.8 % (4.2-6.5) 01/30/18 12:10 Calcium 8.9 mg/dL (8.4-10.5) 02/03/18 06:00 Phosphorus 10.3 mg/dL (2.5-4.5) H 01/30/18 12:10 Magnesium 4.2 mg/dL (1.7-2.2) H 01/30/18 12:10 Total Bilirubin 0.5 mg/dL (0.2-1.3) 02/03/18 06:00 AST 39 U/L (14-36) H 02/03/18 06:00 ALT 35 U/L (7-56) 02/03/18 06:00 Alkaline Phosphatase 59 U/L (38-126) 02/03/18 06:00 Total Creatine Kinase 80 U/L (35-230) 01/30/18 12:10 Troponin I 1.20 ng/mL H* D 01/31/18 05:20 NT-Pro-B Natriuret Pep 89.9 pg/mL (0-450) 01/30/18 12:10 Total Protein 7.1 g/dL (5.8-8.3) 02/03/18 06:00 Albumin 3.8 g/dL (3.0-4.8) 02/03/18 06:00 Globulin 3.3 gm/dL 02/03/18 06:00 Albumin/Globulin Ratio 1.1 (1.1-1.8) 02/03/18 06:00 Triglycerides 122 mg/dL (35-160) 01/30/18 12:10 Cholesterol 248 mg/dL (130-200) H 01/30/18 12:10 LDL Cholesterol Direct 132 mg/dL (0-129) H 01/30/18 12:10 HDL Cholesterol 66 mg/dL (29-60) H 01/30/18 12:10 Procalcitonin < 0.05 NG/ML (0.19-0.49) L 01/30/18 21:00 TSH 3rd Generation 3.34 mIU/mL (0.46-4.68) 01/30/18 15:30 Arterial Blood Potassium 3.8 mmol/L (3.6-5.2) 01/31/18 09:02 Venous Blood Potassium 3.8 mmol/L (3.6-5.2) 01/30/18 15:36 Urine Color Yellow (YELLOW) 01/30/18 13:00 Urine Appearance Clear (CLEAR) 01/30/18 13:00 Urine pH 6.5 (4.7-8.0) 01/30/18 13:00 Ur Specific [place] 1.025 (1.005-1.035) 01/30/18 13:00 Urine Protein 30 mg/dL (<30 mg/dL) H 01/30/18 13:00 Urine Glucose (UA) >=1000 mg/dL (NEGATIVE) 01/30/18 13:00 Urine Ketones Negative mg/dL (NEGATIVE) 01/30/18 13:00 Urine Blood Moderate (NEGATIVE) H 01/30/18 13:00 Urine Nitrate Negative (NEGATIVE) 01/30/18 13:00 Urine Bilirubin Negative (NEGATIVE) 01/30/18 13:00 Urine Urobilinogen 0.2 E.U./dL (<1 E.U./dL) 01/30/18 13:00 Ur Leukocyte Esterase Negative [place]/uL (NEGATIVE) 01/30/18 13:00 Urine RBC 5 - 10 /hpf (0-2) 01/30/18 13:00 Urine WBC 0 - 2 /hpf (0-6) 01/30/18 13:00 Ur Epithelial Cells 0 - 2 /hpf (0-5) 01/30/18 13:00 Urine Bacteria Small (NEG) 01/30/18 13:00 Hyaline Casts 0 - 2 /hpf 01/30/18 13:00 Salicylates < 1 mg/dL (2.0-20.0) L 01/30/18 12:10 Urine Opiates Screen Negative (NEGATIVE) 01/30/18 15:30 Urine Methadone Screen Negative (NEGATIVE) 01/30/18 15:30 Acetaminophen < 10.0 ug/ml (10.0-20.0) L 01/30/18 12:10 Ur Barbiturates Screen Negative (NEGATIVE) 01/30/18 15:30 Ur Phencyclidine Scrn Negative (NEGATIVE) 01/30/18 15:30 Ur Amphetamines Screen Negative (NEGATIVE) 01/30/18 15:30 U Benzodiazepines Scrn Negative (NEGATIVE) 01/30/18 15:30 U Oth Cocaine Metabols Negative (NEGATIVE) 01/30/18 15:30 U Cannabinoids Screen Negative (NEGATIVE) 01/30/18 15:30 Alcohol, Quantitative < 10 mg/dL (0-10) 01/30/18 12:10 Ur L.pneumophila Ag Negative (NEGATIVE) 01/30/18 18:39 Blood Type B POSITIVE 01/30/18 12:40 Blood Type Confirm B POSITIVE 01/30/18 12:10 Antibody Screen Negative 01/30/18 12:40 BBK History Checked No verified bt 01/30/18 12:40 - Hospital Course Hospital Course: Papa Arthur, PGY-1 Discharge Summary for Hospitalist Service 67 Slovenian speaking F with PMHx of asthma, OA, and HLD presents brought in by EMS to the ED for AMS. Patient was found to be in hypercapneic Respiratory Failure and metabolic acidosis, and was subsequently intubated. NPO order was placed. Neuro (Dr. Ernst) was consulted for altered mental status. Head CT was ordered and was negative. CT cervical spine showed no acute displaced fracture or subluxation. A followup brain MRI was ordered, which showed no acute intracranial abnormality. Moderate bilateral mastoid effusions, and mild age related global parenchymal volume loss was noted. Steroids 40 IVP daily was initiated along with Duonebs. Infectious Disease (Dr. Omer) was consulted as well to rule out sepsis, and was placed initially on Vanc and Zosyn. Cultures were found to be negative, and antibiotics were discontinued and the white cell count was monitored. Leukocytosis resolved. Patient was subsequently extubated and acidosis is resolved. Mental status returned back to normal and patient was placed on heart healthy diet. Patient was also found to have NSTEMI. Echo was performed and shows LVEF 44.4% , normal LV thickness, systolic function mildly impaired. EKG showed NSR @ 89 bpm with occasional PVCs. Patient denied chest pain and palpitations. Cardiology (Dr. Gaitan) was consulted. Troponins were found to be elevated 1.39, 1.76 and 1.2. Patient was found to be a candidate for cardiac cath due to possible coronary etiology for AMS. Patient subsequently refused operation in light of femoral approach and understood risks of larger CO and possible and was referred to another audit analyst for outpatient followup. Patient was not found to need ongoing Plavix per cardiology recommendations. Patient refused cardiac cath, so need to follow up with audit analyst was discussed in detail with patient and daughter at bedside. Patient was educated regarding use of inhaler. Patient was provided inhalers as well as medications of Aspirin, Metoprolol, Lipitor and Prednisone taper for 10 days. Patient was instructed to follow up with PMD within one week. Patient was hemodynamically stable. All questions were answered with patient and daughter at bedside to their satisfaction. For complete details of hospitalization, please see EMR. Patient seen, case reviewed and plan approved by Dr. Finn. Discharge Exam - Additional Findings Additional findings: - Constitutional Appears: No Acute Distress - Head Exam Head Exam: ATRAUMATIC, NORMOCEPHALIC - Eye Exam Eye Exam: EOMI Pupil Exam: NORMAL ACCOMODATION - ENT Exam ENT Exam: Mucous Membranes Moist - Respiratory Exam Respiratory Exam: Clear to Ausculation Bilateral. absent: Rales, Wheezes - Cardiovascular Exam Cardiovascular Exam: REGULAR RHYTHM, +S1, +S2. No pedal edema - GI/Abdominal Exam GI & Abdominal Exam: Soft. absent: Distended, Tenderness Discharge Plan - Discharge Medications Prescriptions: Albuterol HFA [Ventolin HFA 90 mcg/actuation (8 g)] 1 puff IH DAILY PRN #1 inhaler PRN Reason: Shortness Of Breath RX: Aspirin [Ecotrin] 81 mg PO DAILY #60 tabec RX: Atorvastatin [Lipitor] 80 mg PO DIN #60 tab Budesonide/Formoterol Fumarate [Symbicort 160-4.5 Mcg Inhaler] 6 gm IH BID #1 hfa.aer.ad RX: Cholecalciferol [Vitamin D 1000 IU] 1,000 iu PO DAILY #30 tab RX: Metoprolol Tartrate [Lopressor] 25 mg PO BID #120 tab RX: predniSONE [predniSONE Tab] See Taper PO DAILY 10 Days tab - Follow Up Plan Condition: FAIR Disposition: HOME/ ROUTINE Instructions: Metabolic Acidosis, Ketoacidosis That Is Not Caused by Diabetes (DC) Additional Instructions: Please follow up with Dr. Alcantara your primary doctor within one week. Please take all medications as prescribed. You have been provided scripts for Prednisone, Aspirin, Lipitor, Metoprolol as well as for a Ventolin inhaler and Symbicort inhaler. You have been provided inhaler education. Please refrain from any drug use. It may exacerbate your breathing status. It is important that you follow up with Dr. Quiros the audit analyst this week for your appointment in his [place] office. He will advise regarding need for cardiac catheterization. Should symptoms worsen or reoccur, please visit nearest emergency department. 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 Referral Routine Comment: Physician Instructions: Reason For Exam: EVALUATION Transition In Care/Readmission Reduction Routine Comment: Physician Instructions: Reason For Exam: EVALUATION 01/30/18 22:15 Patient Advocate Consultation ONCE Comment: Physician Instructions: Reason For Exam: EVALUATION 01/31/18 06:20 Cardiology Consult Routine Comment: intubated 2/2 asthma exacerbation.Hep drip Consulting Provider: Ted Gaitan Consulting Physician: Ted Gaitan Reason for Consult: NSTEMI Hospital Course - Lab Results Lab Results: Micro Results 01/30/18 12:40 Blood Blood Culture - Final NO GROWTH AFTER 5 DAYS 01/30/18 12:40 Blood Gram Stain - Final TEST NOT PERFORMED 01/30/18 12:10 Blood Blood Culture - Final NO GROWTH AFTER 5 DAYS 01/30/18 12:10 Blood Gram Stain - Final TEST NOT PERFORMED 01/30/18 18:39 Nose MRSA Culture (Admit) - Final MRSA NOT DETECTED 01/30/18 13:00 Urine Urine Culture - Final No Growth (<1,000 CFU/ML) Most Recent Lab Values WBC 10.9 10^3/uL (4.5-11.0) D 02/03/18 06:00 RBC 3.93 10^6/uL (3.5-6.1) 02/03/18 06:00 Hgb 11.4 g/dL (12.0-16.0) L 02/03/18 06:00 Hct 36.0 % (36.0-48.0) 02/03/18 06:00 MCV 91.6 fl (80.0-105.0) 02/03/18 06:00 MCH 29.0 pg (25.0-35.0) 02/03/18 06:00 MCHC 31.7 g/dl (31.0-37.0) 02/03/18 06:00 RDW 13.7 % (11.5-14.5) 02/03/18 06:00 Plt Count 288 10^3/uL (120.0-450.0) 02/03/18 06:00 MPV 9.9 fl (7.0-11.0) 02/03/18 06:00 Gran % 59.0 % (50.0-68.0) 02/03/18 06:00 Lymph % (Auto) 31.6 % (22.0-35.0) 02/03/18 06:00 [place] % (Auto) 9.0 % (1.0-6.0) H 02/03/18 06:00 Eos % (Auto) 0.3 % (1.5-5.0) L 02/03/18 06:00 Baso % (Auto) 0.1 % (0.0-3.0) 02/03/18 06:00 Gran # 6.45 (1.4-6.5) 02/03/18 06:00 Lymph # (Auto) 3.5 (1.2-3.4) H 02/03/18 06:00 [place] # (Auto) 1.0 (0.1-0.6) H 02/03/18 06:00 Eos # (Auto) 0.0 (0.0-0.7) 02/03/18 06:00 Baso # (Auto) 0.01 K/mm3 (0.0-2.0) 02/03/18 06:00 PT 11.9 SECONDS (9.4-12.5) 01/31/18 05:20 INR 1.03 01/31/18 05:20 APTT 29.3 Seconds (25.1-36.5) 02/01/18 08:30 pCO2 38 mm/Hg (35-45) 01/31/18 09:02 pO2 239.0 mm/Hg (80-100) H 01/31/18 09:02 HCO3 19.6 mmol/L (21-28) L 01/31/18 09:02 ABG pH 7.32 (7.35-7.45) L 01/31/18 09:02 ABG Total CO2 20.8 mmol.L (22-28) L 01/31/18 09:02 ABG O2 Saturation 100.2 % (95-98) H 01/31/18 09:02 ABG Base Excess -6.0 mmol/L (-2.0-3.0) L 01/31/18 09:02 ABG Potassium 3.8 mmol/L (3.6-5.2) 01/31/18 09:02 VBG pH 7.31 (7.32-7.43) L 01/30/18 15:36 VBG pCO2 42.0 (40-60) 01/30/18 15:36 VBG HCO3 21.1 mmol/l (21-28) 01/30/18 15:36 VBG Total CO2 22.4 mmol.L (22-28) 01/30/18 15:36 VBG O2 Sat (Calc) 99.0 % (40-65) H 01/30/18 15:36 VBG Base Excess -5.0 mmol/L (0.0-2.0) L 01/30/18 15:36 VBG Potassium 3.8 mmol/L (3.6-5.2) 01/30/18 15:36 Sodium 136.0 mmol/L (132-148) 01/31/18 09:02 Chloride 110.0 mmol/L (98-107) H 01/31/18 09:02 Glucose 125 mg/dl (65-105) H 01/31/18 09:02 Lactate 0.7 mmol/L (0.7-2.1) 01/31/18 09:02 FiO2 50.0 % 01/31/18 09:02 Pressure Support 5 01/31/18 09:02 CPAP 5 01/31/18 09:02 Sodium 140 mmol/L (132-148) 02/03/18 06:00 Potassium 3.7 mmol/L (3.6-5.0) 02/03/18 06:00 Chloride 107 mmol/L (98-107) 02/03/18 06:00 Carbon Dioxide 27 mmol/L (21-33) 02/03/18 06:00 Anion Gap 10 (10-20) 02/03/18 06:00 BUN 26 mg/dL (7-21) H 02/03/18 06:00 Creatinine 0.8 mg/dl (0.7-1.2) 02/03/18 06:00 Est GFR ( Amer) > 60 02/03/18 06:00 Est GFR (Non-Af Amer) > 60 02/03/18 06:00 POC Glucose (mg/dL) 126 mg/dL (65-110) H 02/01/18 11:14 Random Glucose 97 mg/dL (70-110) 02/03/18 06:00 Hemoglobin A1c 5.8 % (4.2-6.5) 01/30/18 12:10 Calcium 8.9 mg/dL (8.4-10.5) 02/03/18 06:00 Phosphorus 10.3 mg/dL (2.5-4.5) H 01/30/18 12:10 Magnesium 4.2 mg/dL (1.7-2.2) H 01/30/18 12:10 Total Bilirubin 0.5 mg/dL (0.2-1.3) 02/03/18 06:00 AST 39 U/L (14-36) H 02/03/18 06:00 ALT 35 U/L (7-56) 02/03/18 06:00 Alkaline Phosphatase 59 U/L (38-126) 02/03/18 06:00 Total Creatine Kinase 80 U/L (35-230) 01/30/18 12:10 Troponin I 1.20 ng/mL H* D 01/31/18 05:20 NT-Pro-B Natriuret Pep 89.9 pg/mL (0-450) 01/30/18 12:10 Total Protein 7.1 g/dL (5.8-8.3) 02/03/18 06:00 Albumin 3.8 g/dL (3.0-4.8) 02/03/18 06:00 Globulin 3.3 gm/dL 02/03/18 06:00 Albumin/Globulin Ratio 1.1 (1.1-1.8) 02/03/18 06:00 Triglycerides 122 mg/dL (35-160) 01/30/18 12:10 Cholesterol 248 mg/dL (130-200) H 01/30/18 12:10 LDL Cholesterol Direct 132 mg/dL (0-129) H 01/30/18 12:10 HDL Cholesterol 66 mg/dL (29-60) H 01/30/18 12:10 Procalcitonin < 0.05 NG/ML (0.19-0.49) L 01/30/18 21:00 TSH 3rd Generation 3.34 mIU/mL (0.46-4.68) 01/30/18 15:30 Arterial Blood Potassium 3.8 mmol/L (3.6-5.2) 01/31/18 09:02 Venous Blood Potassium 3.8 mmol/L (3.6-5.2) 01/30/18 15:36 Urine Color Yellow (YELLOW) 01/30/18 13:00 Urine Appearance Clear (CLEAR) 01/30/18 13:00 Urine pH 6.5 (4.7-8.0) 01/30/18 13:00 Ur Specific [place] 1.025 (1.005-1.035) 01/30/18 13:00 Urine Protein 30 mg/dL (<30 mg/dL) H 01/30/18 13:00 Urine Glucose (UA) >=1000 mg/dL (NEGATIVE) 01/30/18 13:00 Urine Ketones Negative mg/dL (NEGATIVE) 01/30/18 13:00 Urine Blood Moderate (NEGATIVE) H 01/30/18 13:00 Urine Nitrate Negative (NEGATIVE) 01/30/18 13:00 Urine Bilirubin Negative (NEGATIVE) 01/30/18 13:00 Urine Urobilinogen 0.2 E.U./dL (<1 E.U./dL) 01/30/18 13:00 Ur Leukocyte Esterase Negative [place]/uL (NEGATIVE) 01/30/18 13:00 Urine RBC 5 - 10 /hpf (0-2) 01/30/18 13:00 Urine WBC 0 - 2 /hpf (0-6) 01/30/18 13:00 Ur Epithelial Cells 0 - 2 /hpf (0-5) 01/30/18 13:00 Urine Bacteria Small (NEG) 01/30/18 13:00 Hyaline Casts 0 - 2 /hpf 01/30/18 13:00 Salicylates < 1 mg/dL (2.0-20.0) L 01/30/18 12:10 Urine Opiates Screen Negative (NEGATIVE) 01/30/18 15:30 Urine Methadone Screen Negative (NEGATIVE) 01/30/18 15:30 Acetaminophen < 10.0 ug/ml (10.0-20.0) L 01/30/18 12:10 Ur Barbiturates Screen Negative (NEGATIVE) 01/30/18 15:30 Ur Phencyclidine Scrn Negative (NEGATIVE) 01/30/18 15:30 Ur Amphetamines Screen Negative (NEGATIVE) 01/30/18 15:30 U Benzodiazepines Scrn Negative (NEGATIVE) 01/30/18 15:30 U Oth Cocaine Metabols Negative (NEGATIVE) 01/30/18 15:30 U Cannabinoids Screen Negative (NEGATIVE) 01/30/18 15:30 Alcohol, Quantitative < 10 mg/dL (0-10) 01/30/18 12:10 Ur L.pneumophila Ag Negative (NEGATIVE) 01/30/18 18:39 Blood Type B POSITIVE 01/30/18 12:40 Blood Type Confirm B POSITIVE 01/30/18 12:10 Antibody Screen Negative 01/30/18 12:40 BBK History Checked No verified bt 01/30/18 12:40 Attending/Attestation - Attestation I have personally seen and examined this patient.: Yes I have fully participated in the care of the patient.: Yes I have reviewed all pertinent clinical information, including history, physical exam and plan: Yes Notes (Text): 02/04/18 16:32 Medical record note made by the resident after discussion with my direction and input after the patient was personally seen and examined by me. I have reviewed the chart and agree that the record accurately reflects by personal performance of the history, physical exam, data review, and medical decision-making, in the course for the patient. I have also personally directed the plan of care. 67 F with PMHx of asthma, OA, and HLD presents brought in by EMS to the ED for AMS.Patient was found to be in hypercapnic Resp Failure and metabolic acidosis, was intubated. Patient was also found ti have NSEMI. Patient is extubated.Acidosis has resolved. Mental status is back to normal. Patient has refused cardiac cath.The issue was discussed in detail with patient and daughter. Patient is ambulatory, She will be discharged home on ASA/Metoprolol /Lipitor for CAD She is also going to be discharged on Albuterol INHALER/Symbicort inhaler and tapering dose of steroid. She has scheduled appointment with and will decided about cardiac catherization after discussion with him. Management plan was discussed in detail with patient. Education was provided.
[2018-02-03 11:49] VITALS: PULSE 80
== END 2018-02-03 15:12 | disposition home or self-care (01) | DRG 882 ==
LOC: ED 11:59 → ERH 13:00 → CCU 17:01
PROVIDERS: ADMIT Hospitalist; ATTEND Hospitalist
PROC: 5A1935Z Respiratory Ventilation, Less than 24 Consecutive Hours (ICD-10-PCS; principal; 2018-01-30)
PROC: 0BH17EZ Insertion of Endotracheal Airway into Trachea, Via Natural or Artificial Opening (ICD-10-PCS; 2018-01-30)
PROC: 5A09357 Assistance with Respiratory Ventilation, Less than 24 Consecutive Hours, Continuous Positive Airway Pressure (ICD-10-PCS; 2018-01-30)
PROC: 3E0F7GC Introduction of Other Therapeutic Substance into Respiratory Tract, Via Natural or Artificial Opening (ICD-10-PCS; 2018-01-31)
DX: J96.02 Acute respiratory failure with hypercapnia (principal); I21.4 Non-ST elevation (NSTEMI) myocardial infarction; R65.10 Systemic inflammatory response syndrome (SIRS) of non-infectious origin without acute organ dysfunction; E87.2 Acidosis; J45.901 Unspecified asthma with (acute) exacerbation; E78.00 Pure hypercholesterolemia, unspecified; M19.90 Unspecified osteoarthritis, unspecified site; E78.5 Hyperlipidemia, unspecified